=== PATIENT | female | born 1975 | race Caucasian/White ===

== ENCOUNTER → 2017-06-09 11:43 | Outpatient (CLI) | payer BC, SELFPAY ==
[2017-06-09 14:37] LABS: Internal QC Validated? YES +Cl - CLEAR BKGD; Monotest Negative (Negative)
[2017-06-09 14:46] LABS: AST(SGOT) 16 U/L (15-37); Alanine Aminotransfer ALT/SGPT 23 U/L (13-56); Albumin, Serum 3.5 g/dL (3.2-5.0); Alkaline Phosphatase 95 U/L (45-117); Anion Gap 8 (5-15); BUN 9 mg/dL (7-18); BUN/Creat Ratio 14.6 RATIO (10-20); Calcium,Total 8.5 mg/dL (8.5-10.1); Chloride 106 mmol/L (98-107); Creatinine, Serum 0.62 mg/dL (0.55-1.02); EST Glomerular Filtration Rate 114 mL/min (>60); Est Glom Filt Rate - Afr Amer 138 mL/min (>60); Globulin 3.5 g/dL (2.2-4.2); Glucose 79 mg/dL (74-106); Potassium 4.1 mmol/L (3.5-5.1); Rheumatoid Factor < 10.0 IU/mL (<15); Sodium Level 140 mmol/L (136-145)
[2017-06-10 14:11] LABS: EBV Early Antigen IgG 40.5 U/mL (0.0-8.9); EBV-VCA IgG > 600.0 U/mL (0.0-17.9)
[2017-06-12 08:46] LABS: ANTINUCLEAR ANTIBODIES DIRECT Negative (Negative)
== END ==
PROVIDERS: Family Provider Family Medicine; PCP Family Medicine; Visit Provider Family Medicine
DX: M13.0 Polyarthritis, unspecified (principal); R35.0 Frequency of micturition
CPT/HCPCS: 36415; 80053; 86038; 86140; 86308; 86431; 86663; 86665; 87086

== ENCOUNTER → 2017-10-24 12:36 | Outpatient (CLI) | payer BC, SELFPAY ==
[2017-10-24 13:58] LABS: Absolute Lymphocyte Count 0.83 X10^3/ul (0.83-4.51); Absolute Neutrophil Count 5.2 X10^3/uL (2.0-7.7); Basophil# 0.04 X10^3/uL; Basophil% 0.6 % (0-1); Eosinophil# 0.07 X10^3/uL; Eosinophils% 1.1 % (0-5); Hematocrit 37.4 % (37-47); Hemoglobin 12.6 g/dl (12.0-15.0); Lymphocyte # 0.83 X10^3/ul (4.0); Lymphocyte % 12.8 % (19-41); Mean Corp Hgb Conc 33.7 g/gl (32-36); Mean Corpuscular Hgb 28.8 pg (27.0-32.0); Mean Corpuscular Volume 85.6 fL (81-99); Mean Platelet Vol. 9.4 fl (6.2-12.0); Monocyte# 0.36 X10^3/uL; Monocyte% 5.5 % (0-10); Neutrophil # 5.18 X10^3/uL (2.7-7.7); Neutrophil % 79.8 % (47-70); Platelet Count 286 K/mm3 (150-450); RBC Distribution Width CV 13.2 % (11.6-14.6); RBC Distribution Width SD 40.9 fl (35.1-43.9); Red Blood Count 4.37 M/mm3 (4.2-5.4); White Blood Count 6.5 K/mm3 (4.4-11.0)
[2017-10-24 14:00] LABS: POSITIVE COUNT NO; POSITIVE DIFFERENTIAL NO; POSITIVE MORPHOLOGY NO
[2017-10-24 14:15] LABS: Vitamin B12 869 pg/mL (211-911)
[2017-10-24 14:57] LABS: AST(SGOT) 15 U/L (15-37); Alanine Aminotransfer ALT/SGPT 21 U/L (13-56); Albumin, Serum 3.6 g/dL (3.2-5.0); Alkaline Phosphatase 96 U/L (45-117); Anion Gap 6 (5-15); BUN 7 mg/dL (7-18); Calcium,Total 8.5 mg/dL (8.5-10.1); Chloride 105 mmol/L (98-107); Creatinine, Serum 0.64 mg/dL (0.55-1.02); EST Glomerular Filtration Rate 110 mL/min (>60); Est Glom Filt Rate - Afr Amer 133 mL/min (>60); Globulin 3.6 g/dL (2.2-4.2); Glucose 87 mg/dL (74-106); Magnesium 1.9 mg/dL (1.6-2.6); Protein, Total 7.2 g/dL (6.4-8.2); Sodium Level 140 mmol/L (136-145); Thyroid Stim Hormone (TSH) 1.03 uIU/mL (0.358-3.74)
== END ==
PROVIDERS: Family Provider Family Medicine; PCP Family Medicine; Visit Provider Family Medicine
DX: R20.2 Paresthesia of skin (principal)
CPT/HCPCS: 36415; 80053; 82607; 82746; 83735; 84443; 85025

== ENCOUNTER 2017-12-23 19:54 | Emergency (ER) | payer BC, SELFPAY ==
[2017-12-23 19:55] VITALS: BP 125/94; PULSE 113; RESP 18; TEMP 37.1; O2SAT 100; BMI 28.3
--- NOTE | 2017-12-23 22:51 | ED.VISSUMM ---
- ER Visit Summary Date of Service: 12/23/17 Chief Complaint: Left leg pain History of Present Illness: The patient is a [address] Luis Miguel Miller. She reports that on November 08 she was jumping on a pogo stick lost her balance fell and hit her left calf on the part that your feet rest on. She reports that she had a hematoma in this area and that it had been improving over the past 2 weeks. However, she reports that approximately 1 week ago she began having an aching pain in her left calf that is 5 out of 10 severity at worst and 3-10 currently. Is worsened by putting pressure on it. Is relieved by rest. She states that the area itches. Physical Examination: Vitals: Stable. Afebrile. General: Well-nourished and well-developed. Head: Normocephalic atraumatic. Neck: Supple, no lymphadenopathy. No JVD. Nontender. Cardiovascular: Regular rate and rhythm. No murmurs. Respiratory: No respiratory distress. Clear to auscultation bilaterally. Abdominal: Soft, nontender, nondistended, normal bowel sounds. No guarding, rebound, or peritoneal signs. Back: Nontender. Extremities: Approximately 2 cm area of contusion over the posterior left calf. There is no erythema, induration, or fluctuance. It is mildly tender to palpation. Skin: Normal color, no rash. Neurologic: Alert and oriented ?3. Cranial nerves II through XII are intact. Normal strength and sensation. Psych: Normal affect. Test Results: Left lower extremity Doppler was negative. Emergency Department Course and Treatment: Patient refused pain medications. She is resting comfortably. Treatment Plan: Patient was reassured. She is instructed to use warm compresses to the area. Follow-up with Dr. Luis Miguel Miller in 1 week if not improving. Return to the emergency department for any worsening symptoms. Disposition: To home in improved and stable condition. Impression: 1. Left calf hematoma, resolving. This note was generated with [employer] software. It may contain incorrect words, spelling, and punctuation that were not noted in review of the chart prior to signing ED Disposition - Plan for ED Patient: Disposition: Home or Assisted Living Chief Complaint: Lower Extremity Injury Instructions: ED Hematoma Referrals: Luis Miguel Miller MD [Primary Care Provider] - 1 Week if not improving
[2017-12-23 22:59] VITALS: BP 114/83; PULSE 99; RESP 16
== END 2017-12-23 23:00 | disposition home or self-care (01) ==
PROVIDERS: Emergency Provider Emergency Medicine; Family Provider Family Medicine; PCP Family Medicine
DX: S80.12XA Contusion of left lower leg, initial encounter (principal); W17.89XA Other fall from one level to another, initial encounter; Y93.9 Activity, unspecified; Y92.9 Unspecified place or not applicable; F32.9 Major depressive disorder, single episode, unspecified; F41.9 Anxiety disorder, unspecified; Z79.899 Other long term (current) drug therapy
CPT/HCPCS: 93971; 99282

== ENCOUNTER → 2018-04-19 17:05 | Outpatient (CLI) | payer BC, SELFPAY ==
[2018-04-19 08:37] VITALS: BMI 29.0
[2018-04-24 09:45] LABS: HPV APTIMA, High Risk Negative (Negative)
== END ==
PROVIDERS: Family Provider Family Medicine; PCP Family Medicine; Referring Provider Nurse Practitioner Women's Health; Visit Provider Nurse Practitioner Women's Health
DX: Z12.4 Encounter for screening for malignant neoplasm of cervix (principal)
CPT/HCPCS: 87624; 88175; G0145

== ENCOUNTER → 2018-05-09 07:37 | Outpatient (CLI) | payer BC, SELFPAY ==
[2018-04-19 08:37] VITALS: BMI 29.0
--- NOTE | 2018-05-09 07:40 | BI_ITS ---
MAMMOGRAPHY - BILATERAL SCREENING REASON FOR EXAM: Female, 42 years old. Routine annual screening examination. PERTINENT HISTORY: Non-contributory. TECHNIQUE: Digital bilateral breast cesar (3D mammographic acquisition) in the CC and MLO projections. 2-D mediolateral oblique (MLO) and craniocaudad (CC) views of both breasts were obtained. CAD: Full Field Digital Mammography with Computer Added Detection was performed. COMPARISON: None. Baseline examination. FINDINGS: Breast Composition: There are scattered areas of fibroglandular density. There are no dominant masses or suspicious calcifications. Asymmetry of breast tissue where more breast tissue is seen in the right breast as compared to the left side. No other significant abnormalities are identified. BI/SCREENING MAMM (CAD), BILAT IMPRESSION: Negative screening mammogram. Yearly followup mammogram recommended. (A) ASSESSMENT CATEGORY: BIRADS Category 2: Benign. A letter regarding these results will be sent to the patient by the facility within 30 days. Approximately 10% of breast cancers are not detected by mammography. A normal mammogram should not delay biopsy of a clinically suspicious abnormality. [id number] Electronically Signed: Barber Corral MD at 9:16 EST Tel [phone], Service support ,
--- OUTSIDE RECORDS SUMMARY | 2018-07-11 07:49 | XMS RPT_ITS ---
:1975 Author Organization OHIP Support Name Relationship Address Phone [employer] Unavailable [address] + [address] [place] [address] CIHA, CHRISTOPHER Unavailable [address] + [place] [address] [employer] Unavailable [address] + [address] [place] [address] CIHA, CHRISTOPHER Unavailable [address] + [place] [address] [employer] Unavailable [address] + [address] [place] [address] CIHA, CHRISTOPHER Unavailable [address] + [place] [address] [employer] Unavailable [address] + [address] [place] [address] CIHA, CHRISTOPHER Unavailable [address] + [place] [address] [employer] Unavailable [address] + [address] [place] [address] CIHA, CHRISTOPHER Unavailable [address] + [place] [address] [employer] Unavailable [address] + [address] [place] [address] BOMONTSERRAT CASTILLO Unavailable [address] + [place] [address] CIHA, CHRISTOPHER Unavailable [address] + [place] [address] [employer] Unavailable [address] + [address] [place] [address] MONTSERRAT LAU Unavailable [address] + [place] [address] CIHA, CHRISTOPHER Unavailable [address] [facility] + [place] [address] Care Team Providers Name Role Phone MICHELLE MOODY (NORRIS) Referring Unavailable Jeanette, Solange Attending Unavailable Miller, Luis Miguel Referring Unavailable Jeanette, Solange Attending Unavailable Miller, Luis Miguel Primary Care Unavailable [place], Solange Referring Unavailable Miller, Luis Miguel Attending Unavailable Miller, Luis Miguel Primary Care Unavailable Miller, Luis Miguel Attending Unavailable Miller, Luis Miguel Primary Care Unavailable Joalexandreaiff, Marion Attending Unavailable Jolldavy, Marion Referring Unavailable Miller, Luis Miguel Primary Care Unavailable Jeanette, Solange Attending Unavailable Jeanette, Solange Referring Unavailable Miller, Luis Miguel Primary Care Unavailable Miller, Luis Miguel Primary Care Unavailable Neo Brito Attending Unavailable PROBLEMS PROBLEMS DATE TYPE CONDITION / CODE ATTENDING STATUS SOURCE 04/20/2018 Unknown Z12.4 - Encounter JeanetteSolange bruce Active [place] for screening for Community malignant neoplasm Hospital of cervix / Repository Z12.4(ICD-10) 04/19/2018 Unknown Z12.31 - Encounter Solange Reid Active [place] for screening Community mammogram for Hospital malignant neoplasm Repository of breast / Z12.31(ICD-10) 04/19/2018 Unknown Z01.411 - Encounter AnchorageSolange bruce Active [place] for gynecological Community examination Hospital (general) (routine) Repository with abnormal findings / Z01.411(ICD-10) 04/19/2018 Unknown Z63.8 - Other Solange Reid Active [place] specified problems Community related to primary Hospital support group / Repository Z63.8(ICD-10) 10/24/2017 Unknown R20.2 - Paresthesia Marion Gross Active [place] of skin / Community R20.2(ICD-10) Hospital Repository 06/17/2017 Unknown R19.7 - Diarrhea, Miller, Luis Miguel Active [place] unspecified / Community R19.7(ICD-10) Hospital Repository 06/10/2017 Unknown M13.0 - Miller, Luis Miguel Active [place] Polyarthritis, Community unspecified / Hospital M13.0(ICD-10) Repository 06/10/2017 Unknown R35.0 - Frequency Miller, Luis Miguel Active [place] of micturition / Community R35.0(ICD-10) Hospital Repository 06/06/2017 Active Pain, unspecified / NA Active [facility] R52(ICD-10) Main [place] Repository 06/06/2017 Active Other specified NA Active [facility] soft tissue [facility] disorders / Repository M79.89(ICD-10) PROCEDURES PROCEDURES No Procedure Records FoundRESULTS RESULTS SCREENING MAMM (CAD), Observed: 05/09/2018 Status: F Source: [place] BILAT 7:40 AM [facility] REPOSITORY [facility] Imaging Services [address] [place] [address] SCREENING MAMM (CAD), BILAT MR#: [id number] Acct: [id number] Name: SUMAYA PENNY Rep #: [id number] : 1975 F 42 From: Barber Corral MD PCP: Luis Miguel Miller MD Status: REG CLI Study: SCREENING MAMM (CAD), BILAT Date of Exam: 05/09/18 Exam# [id number] Ordering Dr: Solange Reid REGISTERED RESPIRATORY TECHNICIAN-C MAMMOGRAPHY - BILATERAL SCREENING REASON FOR EXAM: Female, 42 years old. Routine annual screening examination. PERTINENT HISTORY: Non-contributory. TECHNIQUE: Digital bilateral breast cesar (3D mammographic acquisition) in the CC and MLO projections. 2-D mediolateral oblique (MLO) and craniocaudad (CC) views of both breasts were obtained. CAD: Full Field Digital Mammography with Computer Added Detection was performed. COMPARISON: None. Baseline examination. FINDINGS: Breast Composition: There are scattered areas of fibroglandular density. There are no dominant masses or suspicious calcifications. Asymmetry of breast tissue where more breast tissue is seen in the right breast as compared to the left side. No other significant abnormalities are identified. BI/SCREENING MAMM (CAD), BILAT IMPRESSION: Negative screening mammogram. Yearly followup mammogram recommended. (A) ASSESSMENT CATEGORY: BIRADS Category 2: Benign. A letter regarding these results will be sent to the patient by the facility within 30 days. Approximately 10% of breast cancers are not detected by mammography. A normal mammogram should not delay biopsy of a clinically suspicious abnormality. [id number] Electronically Signed: Barber Corral MD at 9:16 EST Tel [phone], Service support , CC: MIGUEL Reid; Luis Miguel Miller MD Welfare Specialist: Signed CHILD AND FAMILY SERVICES SPECIALIST OFFICE VISIT Observed: 04/19/2018 Status: F Source: [place] REPORT 9:13 AM [facility] REPOSITORY [facility] Women[facility] [address] [place] [address] OFFICE VISIT Date of Service: 04/19/18 MR#: [id number] Acct: [id number] Name: SUMAYA PENNY Rep #: [id number] : 1975 Provider: MIGUEL Reid Age/Sex: 42/F [place] [facility] [place] Signed Intake Vital Signs04/19/18 Height 5 ft 4 in 04/19/18 Weight: 169 lb 04/19/18 Body Mass Index (BMI) 29.0 04/19/18 Blood Pressure 120/76 Intake Visit Reasons: ANNUAL Ash Handler Required: No Is patient in pain?: No Allergies acetaminophen [From Percocet] Allergy (Verified 04/19/18 08:37) Angioedema latex Allergy (Verified 04/19/18 08:37) Rash oxycodone [From Percocet] Allergy (Verified 04/19/18 08:37) Angioedema Medications Dextroamphetamine/Amphetamine [Adderall 30 mg Tablet] 30 mg PO DAILY 12/23/17 [History Confirmed 04/19/18] Venlafaxine HCl 50 mg PO DAILY 12/23/17 [History Confirmed 04/19/18] Is last menstrual period known: Yes Last Menstral Period: 03/29/18 Post menopausal: No Patient : No : No PFSH Medical History Anxiety (Acute) Depression (Acute) Surgical History H/O section (Acute) History of tonsillectomy and adenoidectomy (Acute) Family History Mother Thyroid disorder Father Thyroid disorder Sister No problems noted. 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 DatName GA/WeeksOutcome Route [facility] LgAnesthesDel LocaProviderFOB e ht en tn Unknown Pina 2004 HPI ANNUAL: Details: SUMAYA PENNY is a 42 year old who presents for annual exam. Some issues with marriage. Not sexually active X 1 year. Both struggle with depression but feels hers is under control at this point. States they are like roommates and don't really fight but also don't really communicate. Last PAP: unsure History of abnormal PAP: colp no treatment 1998 Last mammogram: ordered baseline Spouse with vasectomy Female Reproductive History Last Menstral Period: 03/29/18 Cycle Length: 21-35 Bleeding Duration: 5 Questions: Metorrhagia: No, Sexually active: No, Dyspareunia: No, PCB: No ROS Const Constitutional: Denies fatigue, weight gain or weight loss Cardio Card: Denies chest pain Resp Resp: Denies cough or shortness of breath with activity GI GI: Denies abdominal pain, constipation, change in stools, vomiting or bloating : Reports as per HPI; denies urinary frequency, pelvic pain, urinary urgency, vaginal discharge, vaginal itching, urinary incontinence or difficulty urinating Exam Const General: cooperative, healthy appearing, no acute distress, well developed Orientation: alert, oriented to person, oriented to place [facility] Head: normal to inspection Neck Neck: normal visual inspection Thyroid: thyroid normal Lymphatic: no lymphadenopathy noted Chest Breast inspection: normal inspection of the breasts, normal inspection of the axillae Breast palpation: normal palpation of the breasts, normal palpation of the axillae, no axillary lymphadenopathy Resp Effort AND Inspection: normal respiratory effort GI Palpation: soft, nontender, no masses Rectal Exam: deferred External Female Exam: normal external appearance, normal appearance of the urethra Urethra: normal appearance of the urethra, normal palpation Speculum Exam - Vagina: normal appearance of the vagina, normal vaginal discharge Speculum Exam - Cervix: normal appearance of the cervix Bimanual Exam- Vagina AND Uterus: normal bimanual exam, uterine size normal, uterine shape normal, uterus non-tender Bimanual Exam- Adnexa, other: normal adnexae, no adnexal masses, adnexae non-tender, pelvic support normal Pelvic Support: normal Neuro General: alert, oriented x3 Psych Affect: normal affect Assessment AND Plan Problems 1. Encounter for gynecological examination with abnormal finding Z01.411 2. Pap smear for cervical cancer screening Z12.4 3. Family discord Z63.8 4. Encounter for screening mammogram for malignant neoplasm of breast Z12.31 Plan Completed breast and pelvic exam Reviewed diet and exercise Pap thin prep pap with reflex Mammogram ordered Contraception spouse vas Discussed counseling options, encouraged and handout given States feels effexor is adequate for depression RTO 1 year, prn with problems Solange Reid CUSHION FORMER Orders Orders: Coding Level of Care Code Off vis,est,prev 40-64yrs Diagnoses Encounter for gynecological examination with abnormal finding Z01.411 Gynecological examination findings: abnormal findings PRESENT Pap smear for cervical cancer screening Z12.4 Family discord Z63.8 Encounter for screening mammogram for malignant neoplasm of breast Z12.31 04/19/18 0913 <Electronically signed by Solange LEONARD> Date Solange REILLYC Cosigner Signature: Date (if applicable) CC: PAP IG HPV APTIMA Collected: 04/19/2018 Status: F Source: [place] 16/18,45 9:00 AM [facility] REPOSITORY Order Comment: CYTOLOGY INFORMATION: - CLINICAL INFORMATION: - DATE LMP/MENOPAUSE: N/A - COLLECTION VIAL: Thin Prep Vial - CHOCOLATE MAKER SOURCE: CERVICAL - COLLECTION TECHNIQUE: BRUSH/SPATULA Specimen Comment: [id number] Specimen Comment: Source.............Cervix Specimen Comment: No. of containers..01 ThinPrep Vial TYPE CODE TESTS RESULT OUT OF RANGE REFERENCE UNITS LAB L7400.0800 . Normal DIAGN Comment Result Comment: NEGATIVE FOR INTRAEPITHELIAL LESION AND MALIGNANCY. LAB L7400.0900 . Normal ADEQ Comment Result Comment: Satisfactory for evaluation. Endocervical and/or squamous metaplastic cells (endocervical component) are present. LAB L7400.1400 . Normal PERFORM Comment Result Comment: Shantal Cullen Hog Trader LAB L7400.2575 . Normal TEST METHOD Comment Result Comment: This liquid based ThinPrep(R) pap test was screened with the use of an image guided system. LAB L7400.2600 . Normal . COMM LAB L7400.2700 . Normal PAPSMR Comment Result Comment: The Pap smear is a screening test designed to aid in the detection of premalignant and malignant conditions of the uterine cervix. It is not a diagnostic procedure and should not be used as the sole means of detecting cervical cancer. Both false-positive and false-negative reports do occur. LAB L7400.2760 Negative Normal HPV APTIMA, Negative HR Result Comment: This test detects fourteen high-risk HPV types (16/18/31/33/35/39/45/ 51/52/56/58/59/66/68) without differentiation. Performed at: - [facility] [id number] Cargo And Container Inspector: Marianne Dickerson MD, Phone: [phone] Performed at: =G - [facility] [address] [id number] Cargo And Container Inspector: Marianne Dickerson MD, Phone: [phone] Performed By: #### L7400.0280 #### [facility] (refer to report for specific site) refer to report for address and phone number EMERGENCY DEPARTMENT Observed: 12/24/2017 Status: F Source: [place] SUMMARY 1:00 AM [facility] REPOSITORY [facility] Medical Records Department [address] [place] [address] Emergency Department Summary 12/23/17 2251 MR#: [id number] Acct: [id number] Name: SUMAYA PENNY Rep #: [id number] : 1975 42 From: Neo Brito MD PCP: Luis Miguel Miller MD Status: DEP ER - ER Visit Summary Date of Service: 12/23/17 Chief Complaint: Left leg pain History of Present Illness: The patient is a [address] Luis Miguel Miller. She reports that on November 08 she was jumping on a pogo stick lost her balance fell and hit her left calf on the part that your feet rest on. She reports that she had a hematoma in this area and that it had been improving over the past 2 weeks. However, she reports that approximately 1 week ago she began having an aching pain in her left calf that is 5 out of 10 severity at worst and 3-10 currently. Is worsened by putting pressure on it. Is relieved by rest. She states that the area itches. Physical Examination: Vitals: Stable. Afebrile. General: Well-nourished and well-developed. Head: Normocephalic atraumatic. Neck: Supple, no lymphadenopathy. No JVD. Nontender. Cardiovascular: Regular rate and rhythm. No murmurs. Respiratory: No respiratory distress. Clear to auscultation bilaterally. Abdominal: Soft, nontender, nondistended, normal bowel sounds. No guarding, rebound, or peritoneal signs. Back: Nontender. Extremities: Approximately 2 cm area of contusion over the posterior left calf. There is no erythema, induration, or fluctuance. It is mildly tender to palpation. Skin: Normal color, no rash. Neurologic: Alert and oriented 3. Cranial nerves II through XII are intact. Normal strength and sensation. Psych: Normal affect. Test Results: Left lower extremity Doppler was negative. Emergency Department Course and Treatment: Patient refused pain medications. She is resting comfortably. Treatment Plan: Patient was reassured. She is instructed to use warm compresses to the area. Follow-up with Dr. Luis Miguel Miller in 1 week if not improving. Return to the emergency department for any worsening symptoms. Disposition: To home in improved and stable condition. Impression: 1. Left calf hematoma, resolving. This note was generated with Doujiaoation software. It may contain incorrect words, spelling, and punctuation that were not noted in review of the chart prior to signing ED Disposition - Plan for ED Patient: Disposition: Home or Assisted Living Chief Complaint: Lower Extremity Injury Instructions: ED Hematoma Referrals: Luis Miguel Miller MD [Primary Care Provider] - 1 Week if not improving What to do if you have Problems For any increased pain, shortness of breath, bleeding, nausea or vomiting, chest pain, or any unexpected problems, contact your Primary Care Provider. Call [facility] ([phone]) or report to the closest Emergency Room. Call 911 if necessary. 12/24/17 0100 <Electronically signed by Neo rBito MD> Date Neo Brito MD Cosigner Signature (If Indicated): Date CC: Luis Miguel Miller MD VENOUS DUPLEX Observed: 12/23/2017 Status: F Source: [place] IMAG/LIMITED/UNI 9:49 PM [facility] REPOSITORY [facility] Imaging Services [address] [place] [address] Venous Duplex Imag/Limited/Uni MR#: [id number] Acct: [id number] Name: SUMAYA PENNY Rep #: [id number] : 1975 F 42 From: Adalid Welch MD PCP: Luis Miguel Miller MD Status: REG ER Study: Venous Duplex Imag/Limited/Uni Date of Exam: 12/23/17 Exam# [id number] Ordering Dr: Neo Brito MD STUDY: VENOUS DOPPLER ULTRASOUND - LEFT LOWER EXTREMITY REASON FOR EXAM: Female, 42 years old. Swelling TECHNIQUE: Ultrasound evaluation of the deep vein system to include sevilla-scale imaging and compression was performed. Sevilla-scale imaging and Doppler sonographic evaluation, including duplex spectral analysis and qualitative color flow sonography, was performed. COMPARISON: None. FINDINGS: Common Femoral Vein: Normal compression, spontaneity and augmentation. Normal color Doppler. Common Femoral Vein/Greater Saphenous Junction: Normal compression, spontaneity and augmentation. Normal color Doppler. Deep Femoral Vein: Normal compression, spontaneity and augmentation. Normal color Doppler. Femoral Proximal: Normal compression, spontaneity and augmentation. Normal color Doppler. Femoral Middle: Normal compression, spontaneity and augmentation. Normal color Doppler. Femoral Distal: Normal compression, spontaneity and augmentation. Normal color Doppler. Popliteal Vein: Normal compression, spontaneity and augmentation. Normal color Doppler. Posterior Tibial Vein: Normal compression, spontaneity and augmentation. Normal color Doppler. Peroneal Vein: Normal compression, spontaneity and augmentation. Normal color Doppler. US/Venous Duplex Imag/Limited/Uni IMPRESSION: Normal venous Doppler ultrasound of the lower extremity. Electronically Signed: Adalid Welch MD at 22:30 EDT , Service support , CC: Luis Miguel Miller MD; Neo Brito MD Welfare Specialist: Signed CBC W/DIFF, AUTOMATED Collected: 10/24/2017 Status: F Source: [place] 12:41 PM [facility] REPOSITORY Order Comment: Order Date: 10/24/17 Order Info: 0184-1 - CBCD TYPE CODE TESTS RESULT OUT OF RANGE REFERENCE UNITS LAB L100.1000 4.4-11.0 K/mm3 Normal WBC 6.5 LAB L100.1200 4.2-5.4 M/mm3 Normal RBC 4.37 LAB L100.1300 12.0-15.0 g/dl Normal HGB 12.6 LAB L100.1400 37-47 % Normal HCT 37.4 LAB L100.1500 81-99 fL Normal MCV 85.6 LAB L100.1600 27.0-32.0 pg Normal MCH 28.8 LAB L100.1700 32-36 g/gl Normal MCHC 33.7 LAB L100.1810 11.6-14.6 % Normal RDW CV 13.2 LAB L100.1820 35.1-43.9 fl Normal RDW SD 40.9 LAB L100.1900 150-450 K/mm3 Normal PLT 286 LAB L100.2000 6.2-12.0 fl Normal MPV 9.4 LAB L100.2100 47-70 % High NEUT% 79.8 LAB L100.2200 19-41 % Low LY% 12.8 LAB L100.2300 0-10 % Normal MONO% 5.5 LAB L100.2400 0-5 % Normal EO% 1.1 LAB L100.2500 0-1 % Normal BASO% 0.6 LAB L100.2550 0.0-0.9 % Normal IM GRAN % 0.200 Result Comment: IG% - Immature Granulocytes (promyelocytes, myelocytes and metamyelocytes) > 1% indicates that a LEFT SHIFT is Present. LAB L100.2620 2.0-7.7 X10 3/uL Normal Absolute Neut 5.2 LAB L100.2720 0.83-4.51 X10 3/ul Normal Absolute Lymph 0.83 Performed By: #### L100.0100, L503.0105, L500.4050, L501.5200, L501.9520, L506.0250 #### [facility] [address] [facility]. [place], [place], [address] VITAMIN B12 Collected: 10/24/2017 Status: F Source: [place] 12:41 PM [facility] REPOSITORY Order Comment: Order Date: 10/24/17 Order Info: 2132-9 - B12 TYPE CODE TESTS RESULT OUT OF RANGE REFERENCE UNITS LAB L503.0105 211-911 pg/mL Normal Vitamin B12 869 Performed By: #### L100.0100, L503.0105, L500.4050, L501.5200, L501.9520, L506.0250 #### [facility] [address] [place], [address] COMPREHENSIVE METABOLIC Collected: 10/24/2017 Status: F Source: [place] [facility] 12:41 PM [facility] REPOSITORY Order Comment: Order Date: 10/24/17 Order Info: 0786-1 - CMP Order Info: 53201-2 - MG Order Info: 3016-3 - TSH Order Info: 2284-8 - FOLS Is Patient Taking Vitamins or Folic Acid Supplements? N TYPE CODE TESTS RESULT OUT OF RANGE REFERENCE UNITS LAB L501.0100 74-106 mg/dL Normal GLU 87 Result Comment: Please note revised GLUCOSE reference range effective 2017. LAB L501.1000 7-18 mg/dL Normal BUN 7 LAB L501.1100 0.55-1.02 mg/dL Normal CREAT,SERUM 0.64 Result Comment: The validity of the calculated GFR AND GFRAA in patients over 70 years has not been determined. Clinical correlation is essential. LAB L501.1110 >60 mL/min Normal EST GFR 110 Result Comment: Non- GFR Calc LAB L501.1115 >60 mL/min Normal EST GFR - AA 133 Result Comment: GFR Calc LAB L501.1300 10-20 RATIO Normal BUN/CRE 11.0 LAB L501.1500 6.4-8.2 g/dL T Normal PROT 7.2 LAB L501.1800 3.2-5.0 g/dL Normal ALB 3.6 LAB L501.1950 2.2-4.2 g/dL Normal GLOB 3.6 LAB L501.2000 0.9-2.4 RATIO Normal A/G 1.0 LAB L501.2200 8.5-10.1 mg/dL CA Normal 8.5 LAB L501.4100 15-37 U/L Normal AST 15 LAB L501.4305 45-117 U/L Normal ALK P 96 LAB L501.4405 13-56 U/L Normal ALT 21 LAB L501.4600 0.20-1.00 mg/dL T Normal BILI 0.30 LAB L501.5300 136-145 mmol/L NA Normal 140 LAB L501.5600 3.5-5.1 mmol/L K Normal 4.0 LAB L501.5900 98-107 mmol/L CL Normal 105 LAB L501.6100 21.0-32.0 mmol/L Normal CO2 29.0 LAB L501.6200 5-15 Normal GAP 6 Performed By: #### L100.0100, L503.0105, L500.4050, L501.5200, L501.9520, L506.0250 #### [facility] [address] [place], [address] MAGNESIUM Collected: 10/24/2017 Status: F Source: [place] 12:41 PM [facility] REPOSITORY Order Comment: Order Date: 10/24/17 Order Info: 0786-1 - CMP Order Info: 58571-1 - MG Order Info: 3016-3 - TSH Order Info: 2284-8 - FOLS Is Patient Taking Vitamins or Folic Acid Supplements? N TYPE CODE TESTS RESULT OUT OF RANGE REFERENCE UNITS LAB L501.5200 1.6-2.6 mg/dL Normal MG 1.9 Performed By: #### L100.0100, L503.0105, L500.4050, L501.5200, L501.9520, L506.0250 #### [facility] [address] [place], [address] THYROID STIM HORMONE Collected: 10/24/2017 Status: F Source: [place] (TSH) 12:41 PM [facility] REPOSITORY Order Comment: Order Date: 10/24/17 Order Info: 0786-1 - CMP Order Info: 75070-5 - MG Order Info: 3016-3 - TSH Order Info: 2284-8 - FOLS Is Patient Taking Vitamins or Folic Acid Supplements? N TYPE CODE TESTS RESULT OUT OF RANGE REFERENCE UNITS LAB L501.9520 0.358-3.74 uIU/mL Normal TSH 1.03 Performed By: #### L100.0100, L503.0105, L500.4050, L501.5200, L501.9520, L506.0250 #### [facility] [address] [place], [address] FOLATES, (FOLIC ACID) Collected: 10/24/2017 Status: F Source: [place] 12:41 PM [facility] REPOSITORY Order Comment: Order Date: 10/24/17 Order Info: 0786-1 - CMP Order Info: 37091-5 - MG Order Info: 3016-3 - TSH Order Info: 2284-8 - FOLS Is Patient Taking Vitamins or Folic Acid Supplements? N TYPE CODE TESTS RESULT OUT OF RANGE REFERENCE UNITS LAB L506.0250 3.1-55.4 ng/mL Normal FOLATES 38.40 Performed By: #### L100.0100, L503.0105, L500.4050, L501.5200, L501.9520, L506.0250 #### [facility] [address] [place], [address] MONOTEST Collected: 06/09/2017 Status: F Source: [place] 11:46 AM [facility] REPOSITORY Order Comment: ADD COMPREHENSIVE PANEL TO REFLEX IF POSITIVE LAURA RUN EBV PROFILE IGG/IGM AND EBV VCA/EA IF MONO IS NEGITIVE TYPE CODE TESTS RESULT OUT OF RANGE REFERENCE UNITS LAB L700.5700 Negative Normal MONO Negative Performed By: #### L700.5500 #### [facility] [address] [facility] [place], [address] COMPREHENSIVE METABOLIC Collected: 06/09/2017 Status: F Source: [facility] 11:46 AM [facility] REPOSITORY Order Comment: ADD COMPREHENSIVE PANEL TO REFLEX IF POSITIVE LAURA RUN EBV PROFILE IGG/IGM AND EBV VCA/EA IF MONO IS NEGITIVE TYPE CODE TESTS RESULT OUT OF RANGE REFERENCE UNITS LAB L501.0100 74-106 mg/dL Normal GLU 79 Result Comment: Please note revised GLUCOSE reference range effective 2017. LAB L501.1000 7-18 mg/dL Normal BUN 9 LAB L501.1100 0.55-1.02 mg/dL Normal CREAT,SERUM 0.62 Result Comment: The validity of the calculated GFR AND GFRAA in patients over 70 years has not been determined. Clinical correlation is essential. LAB L501.1110 >60 mL/min Normal EST GFR 114 Result Comment: Non- GFR Calc LAB L501.1115 >60 mL/min Normal EST GFR - AA 138 Result Comment: GFR Calc LAB L501.1300 10-20 RATIO Normal BUN/CRE 14.6 LAB L501.1500 6.4-8.2 g/dL T Normal PROT 7.0 LAB L501.1800 3.2-5.0 g/dL Normal ALB 3.5 LAB L501.1950 2.2-4.2 g/dL Normal GLOB 3.5 LAB L501.2000 0.9-2.4 RATIO Normal A/G 1.0 LAB L501.2200 8.5-10.1 mg/dL CA Normal 8.5 LAB L501.4100 15-37 U/L Normal AST 16 LAB L501.4305 45-117 U/L Normal ALK P 95 LAB L501.4405 13-56 U/L Normal ALT 23 Result Comment: Please note revised ALT reference range effective 2017. LAB L501.4600 0.20-1.00 mg/dL Normal T BILI 0.30 LAB L501.5300 136-145 mmol/L Normal NA 140 LAB L501.5600 3.5-5.1 mmol/L Normal K 4.1 LAB L501.5900 98-107 mmol/L Normal CL 106 LAB L501.6100 21.0-32.0 mmol/L Normal CO2 26.0 LAB L501.6200 5-15 Normal GAP 8 Performed By: #### L500.4050, L501.6710, L505.7010 #### [facility] [address] [place], [place], [address] CRP Collected: 06/09/2017 Status: F Source: [place] 11:46 AM [facility] REPOSITORY Order Comment: ADD COMPREHENSIVE PANEL TO REFLEX IF POSITIVE LAURA RUN EBV PROFILE IGG/IGM AND EBV VCA/EA IF MONO IS NEGITIVE TYPE CODE TESTS RESULT OUT OF RANGE REFERENCE UNITS LAB L501.6710 0.0-3.0 mg/L High 13.00 C-REACTIVE PROT Result Comment: C-Reactive Protein (CRP) provides useful information for the diagnosis, therapy and monitoring of inflammatory processes and associated diseases. For the evaluation of Relative Risk for Cardiovascular Disease, a High Sensitivity CRP (HSCRP) should be ordered. Performed By: #### L500.4050, L501.6710, L505.7010 #### [facility] [address] [place], [address] RHEUMATOID FACTOR Collected: 06/09/2017 Status: F Source: [place] 11:46 AM [facility] REPOSITORY Order Comment: ADD COMPREHENSIVE PANEL TO REFLEX IF POSITIVE LAURA RUN EBV PROFILE IGG/IGM AND EBV VCA/EA IF MONO IS NEGITIVE TYPE CODE TESTS RESULT OUT OF RANGE REFERENCE UNITS LAB L505.7010 <15 IU/mL Normal RHEUMATOID FAC < 10.0 Performed By: #### L500.4050, L501.6710, L505.7010 #### [facility] [address] [place], [place], [address] Observed: 06/09/2017 Status: F Source: KALEY CULTURE, URINE 11:46 AM [facility] REPOSITORY Urine Culture Culture exhibits no growth. Performed By: #### M100.0650 #### [facility] [address] [place], [address] EBV VCA / EA IGG Collected: 06/09/2017 Status: F Source: KALEY 11:46 AM [facility] REPOSITORY TYPE CODE TESTS RESULT OUT OF RANGE REFERENCE UNITS LAB L3100.6000 0.0-8.9 U/mL High EB-EA IgG 40.5 29747 Result Comment: Hepatitis A, Hepatitis C and HIV antibodies may cross-react with this assay. Negative < 9.0 Equivocal 9.0 - 10.9 Positive >10.9 LAB L3100.6100 0.0-17.9 U/mL High EB-VCA > [id number] 600.0 Result Comment: Negative <18.0 Equivocal 18.0 - 21.9 Positive >21.9 Performed at: [facility] [address] [id number] [employer] Inspector: Jovanni Jiang PhD, Phone: [phone] Performed By: #### L3100.5875 #### [facility] (refer to report for specific site) refer to report for address and phone number ANTINUCLEAR ANTIBODIES Collected: 06/09/2017 Status: F Source: [place]ALE[place] DIRECT 11:46 AM [facility] REPOSITORY Order Comment: ADD COMPREHENSIVE PANEL TO REFLEX IF POSITIVE LAURA RUN EBV PROFILE IGG/IGM AND EBV VCA/EA IF MONO IS NEGITIVE TYPE CODE TESTS RESULT OUT OF RANGE REFERENCE UNITS LAB L3100.5475 Negative Normal Negative LAURA-DIRECT Result Comment: Performed at: [facility] [id number] [employer] And [employer] Inspector: Jovanni Jiang PhD, Phone: [phone] Performed By: #### L3100.5475 #### [facility] (refer to report for specific site) refer to report for address and phone number CBC AND DIFFERENTIAL Collected: 06/06/2017 Status: F Source: [place] 12:33 PM [facility] REPOSITORY TYPE CODE TESTS RESULT OUT OF REFERENCE UNITS RANGE LAB WBC 3.70-11.00 k/uL WBC 6.72 LAB RBC 3.90-5.20 m/uL RBC 3.94 LAB HGB 11.5-15.5 g/dL Low Hemoglobin 11.3 LAB HCT 36.0-46.0 % Low Hematocrit 34.3 LAB MCV 80.0-100.0 fL MCV 87.1 LAB MCH 26.0-34.0 pG MCH 28.7 LAB MCHC 30.5-36.0 g/dL MCHC 32.9 LAB RDWCV 11.5-15.0 % RDW-CV 12.1 LAB PLTCT 150-400 k/uL Platelet Count 302 LAB MPV 9.0-12.7 fL MPV 9.7 LAB ANEUT % Neut% 71.1 LAB AANEUT 1.45-7.50 k/uL Abs Neut 4.78 LAB ALYMP % Lymph% 16.1 LAB AALYMP 1.00-4.00 k/uL Abs Lymph 1.08 LAB AMONO % Wright% 6.0 LAB AAMONO <0.87 k/uL Abs Wright 0.40 LAB AEOS % Eosin% 5.5 LAB AAEOS <0.46 k/uL Abs Eosin 0.37 LAB ABASO % Baso% 1.3 LAB AABASO <0.11 k/uL Abs Baso 0.09 LAB AUNRBC 0 /100 WBC NRBCs 0.0 LAB ABNRBC <0.01 k/uL Absolute nRBC <0.01 LAB DTYP DTYPE Auto Diff Performed By: #### CBCDIF, CMP #### [facility] [address] [place] [address] COMP METABOLIC PANEL Collected: 06/06/2017 Status: F Source: [place] 12:33 PM [facility] REPOSITORY TYPE CODE TESTS RESULT OUT OF REFERENCE UNITS RANGE LAB TP 6.3-8.0 g/dL Protein, Total 7.2 LAB ALB 3.9-4.9 g/dL Albumin 4.1 LAB CA 8.5-10.2 mg/dL Calcium, Total 9.8 LAB TBIL 0.2-1.3 mg/dL Bilirubin, Total 0.2 LAB ALKP 32-117 U/L Alkaline Phosphatase 89 LAB AST 13-35 U/L AST 22 LAB GLU 74-99 mg/dL Glucose 85 Result Comment: The [place] [employer] (ADA) provides guidance for cutoff values for fasting glucose and random glucose. The ADA defines fasting as no caloric intake for at least 8 hours. Fas ting plasma glucose results between 100 to 125 mg/dL indicate increased risk for diabetes (prediabetes). Fasting plasma glucose results greater than or equal to 126 mg/dL meet the criteria for diagnosis of diabetes. In the absence of unequivocal hyperglycemia, results should be confirmed by repeat testing. In a patient with classic symptoms of hyperglycemia or hyperglycemic crisis, random plasma glucose results greater than or equal to 200 mg/dL meet the criteria for diagnosis of diabetes. Reference: Standards of Medical Care in Diabetes 2016, [place] [employer]. Diabetes Care. 2016.39(Suppl 1). LAB BUN 7-21 mg/dL BUN 11 LAB CRET 0.58-0.96 mg/dL Creatinine 0.64 LAB NA 136-144 mmol/L Sodium 138 LAB K 3.7-5.1 mmol/L Potassium 3.9 LAB CL 97-105 mmol/L Chloride 100 LAB CO2 22-30 mmol/L CO2 22 LAB AGAP 9-18 mmol/L Anion Gap 16 LAB ALT 7-38 U/L ALT 18 LAB GFRAA eGFR- Amer. >60 LAB GFRNAA . eGFR-All Other Races >60 Result Comment: eGFR (Estimated GFR) Units of measure: mL/min/1.73 meters squared eGFR is derived from the reexpressed MDRD Study equation using the following parameters: serum creatinine, age, gender and race. The creatinine assay has been calibrated to be traceable to IDMS. An eGFR <60 mL/min/1.73m2 for >3 months is consistent with chronic kidney disease. Refer to KDOQI guidelines for clinical interpretation. In patients with unstable renal function, e.g. those with acute kidney injury, the eGFR may not accurately reflect actual GFR. Performed By: #### CBCDIF, CMP #### [facility] [address] [place], [place] [address] PROGRESS Observed: 06/05/2017 Status: COMPLETED Source: [place] 12:39 PM [facility] REPOSITORY HNO ID: [id number] Author: Michelle Moody Service: (none) Author Type: Nurse Practitioner Type: Progress Notes Filed: 06/05/2017 2:29 PM Note Text: Subjective HPI HPI Sumaya Penny is a 41 year old female who presents today for CC of sore throat, body aches, headaches. This started 7 days ago. Has tried ibuprofen with mild relief. Symptoms are worsened by notihng. Risk factors sick exposures at work. Highest temp 101.1 Review of Systems Constitutional: Negative for chills, fever and weight loss. HENT: Positive for congestion and sore throat. Negative for ear pain and nosebleeds. Eyes: Dry burning eyes. Respiratory: Negative for cough, shortness of breath and wheezing. Musculoskeletal: Negative for neck pain. Skin: Positive for itching and rash. PAST MEDICAL HISTORY Diagnosis Date - Abnormal pap Abn. Pap smear (cervix) - Dysthymic disorder Depression (non-psychotic) - Generalized anxiety disorder anxiety/depression PAST SURGICAL HISTORY Procedure Laterality Date - DELIVERY ONLY , low cervical - COLPOSCOPY (VAGINOSCOPY) 2000 mild dysplasia - IUD INSERTION (CHOCOLATE [employer] DEPT)_*FL 05/23/2006 MIRENA/removed - REMOVE TONSILS/ADENOIDS,12+ Y/O ALLERGIES Latex; Percocet [Oxycodone-Acetaminophen] MEDICATIONS venlafaxine (EFFEXOR) 25 mg tablet Take 25 mg by mouth three times daily. dextroamphetamine-amphetamine (ADDERALL XR) 30 mg 24 hr capsule lisdexamfetamine (VYVANSE) 40 mg capsule Take 40 mg by mouth once daily. hydrOXYzine pamoate (VISTARIL) 25 mg capsule Take 25 mg by mouth three times daily as needed. Levonorgestrel-Ethinyl Estrad (AVIANE) 0.1mg - 20mcg per tablet Take 1 tablet by mouth once daily. venlafaxine 75 mg tablet Take 225 mg by mouth once daily. ALBUTEROL 90 MCG/ACTUATION AEROSOL INHALER Inhale one(1) - two(2) puffs four(4) times a day as needed for wheezing and shortness of breath. multivitamins(DAILY MULTIVITAMIN TAB) Take one(1) tablet daily. FAMILY HISTORY Problem Relation Age of Onset - Stroke Paternal Grandfather - fibromyalgia [Other] [OTHER] Mother - None Father - Arthritis Mother Social History Substance Use Topics - Smoking status: Former Smoker Packs/day: 0.50 Years: 3.00 Types: Cigarettes - Smokeless tobacco: Never Used Comment: quit in 2001 - Alcohol use Yes Comment: occa Blood pressure 92/74, pulse 91, temperature 36.9 ?C (98.4 ?F), temperature source Tympanic, resp. rate 18, weight 73.9 kg (163 lb), last menstrual period 05/23/2017, SpO2 100 %. Objective Physical Exam Constitutional: She is oriented to person, place, and time and well-developed, well-nourished, and in no distress. Non-toxic appearance. She does not have a sickly appearance. No distress. HENT: Head: Normocephalic and atraumatic. Right Ear: Hearing, tympanic membrane, external ear and ear canal normal. Left Ear: Hearing, tympanic membrane, external ear and ear canal normal. Nose: Nose normal. Mouth/Throat: Uvula is midline and mucous membranes are normal. Posterior oropharyngeal erythema present. No oropharyngeal exudate, posterior oropharyngeal edema or tonsillar abscesses. Eyes: Conjunctivae and lids are normal. Pupils are equal, round, and reactive to light. Right eye exhibits no discharge. Left eye exhibits no discharge. No scleral icterus. Neck: Trachea normal and normal range of motion. Neck supple. Cardiovascular: Normal rate, regular rhythm and normal heart sounds. Pulmonary/Chest: Effort normal and breath sounds normal. Musculoskeletal: Bilateral palmar erythema/blanchable. No edema/rash/lesions noticed. Mild erythema noticed on bilateral forearms. Lymphadenopathy: She has no cervical adenopathy. Neurological: She is alert and oriented to person, place, and time. Skin: No rash noted. She is not diaphoretic. ASSESSMENT/PLAN: 1. Body aches - ICD9: 780.96, ICD10: R52 (primary diagnosis) Ibuprofen/tylenol for aches Push fluids Follow up with pcp in 5-7 days - CBC + DIFF - COMP METABOLIC PANEL 2. Bilateral hand swelling - ICD9: 729.81, ICD10: M79.89 Will check labwork and follow up with pcp in 4-5 days - CBC + DIFF - COMP METABOLIC PANEL Prescription instructions reviewed with patient as applicable. Patient advised if symptoms do not improve or if symptoms worsen sooner, to contact the office for further evaluation by their primary care physician. Potential red flag symptoms discussed with the patient. Reviewed appropriate action plan to take if red flag symptoms occur. Patient agreeable to treatment plan. Michelle Moody CNP ALLERGIES ALLERGIES DATE TYPE / CODE NAME / CODE REACTION SEVERITY SOURCE 04/19/2018 Drug oxycodone/F0 Angioedema Unknown [facility] Allergy/4160 [id number](RXN Hospital 02963(SNOMED ORM) Repository CT) 04/19/2018 Drug acetaminophe Angioedema Unknown [facility] Allergy/4160 n/[id number] Hospital 36538(SNOMED (RXNORM) Repository CT) 04/19/2018 Drug latex/C52599 Rash Unknown [facility] Allergy/4160 8921(RXNORM) Hospital [address]05(SNOMED Repository CT) 11/11/2005 DRUG/[id number] OXYCODONE-AC ITCHING [facility] 03(SNOMED ETAMINOPHEN [facility] [place] [facility]) Repository 10/18/2005 DRUG LATEX ITCHING Med [facility] INGREDI/4195 [facility] [address](SNOMED Repository CT) ENCOUNTERS ENCOUNTERS ADMIT/DISCHARGE ACCOUNT ADMITTING ENCOUNTER LOCATION SOURCE NUMBER CLASS 05/09/2018 [id number] Ambulatory [facility] ing:OPBI Repository 04/19/2018 [id number] Ambulatory [facility] ing:LABSPEC Repository 04/19/2018/04/19/19 [id number] Ambulatory BMS[facility]:[address] [place] [address] [facility] Repository 12/23/2017/12/24/19 [id number] Emergency [address] ing:ED Repository 10/24/2017 [id number] Ambulatory [facility] ing:MTLAB Repository 06/17/2017 [id number] Ambulatory [facility] ing:LAB.FUTUR Repository E 06/09/2017 [id number] Ambulatory [facility] ing:MFPLAB Repository 06/06/2017 [id number] Ambulatory [facility] Repository 06/05/2017/06/07/[id number] Repository PAYERS PAYERS ENCOUNTER GUARANTOR PAYER SUBSCRIBER SOURCE 05/09/2018 SUMAYA [place] Primary SUMAYA Roche [id number] [place] Insurance:ANTHEMPolic [place] Number: [id number] Hospital [address]Cka: [phone]) [id number] Repository [phone] () Date:8430-50-05AF [address] [place] [address]VS: 05/09/2018 Secondary NOT GIVENUNK [place] Insurance:SELF PAY [facility] Number: Effective Repository Date:2018-04-19 04/19/2018 SUMAYA [place] Primary SUMAYA [place] [id number] [place] Insurance:ANTHEMPolic [place]HADOB: [place] Number: [id number] Hospital 7[address]Uax: [phone]) [id number] Repository [phone] () Date:8023-54-23IE [address] [place] [address] 24395VF: 04/19/2018 Secondary NOT GIVENUNK [place] Insurance:SELF PAY [facility] Number: Effective Repository Date:2018-04-19 04/19/2018 SUMAYA [place] Primary SUMAYA [place] [id number] [place] Insurance:ANTHEMPolic [place]OB: [place] Number: [id number] Hospital [address]16[address]Dkk: (330) [id number] Repository [phone] () Date:2590-84-07HH [id number] [place] [address]UI: 04/19/2018 Secondary NOT GIVENUNK [place] Insurance:SELF PAY [facility] Number: Effective Repository Date:2018-04-19 12/23/2017 SUMAYA [place] Primary SUMAYA Roche [id number] [place] Insurance:ANTHEMPolic [place] Number: [id number] Hospital [address]Jgi: (330) [id number] Repository [phone] () Date:5070-88-79ML [id number] [place] [address] 12783OB: 12/23/2017 Secondary NOT GIVENUNK [place] Insurance:SELF PAY [facility] Effective Repository Date:2017-12-23 10/24/2017 SUMAYA M Primary SUMAYA M [place] [id number] [place] Insurance:ANTHEMPolic CIHADOB: [facility] Number: [id number] Hospital [address]Jqy: (330) [id number] Repository [phone] () Date:6224-88-10ZA [address] [place] [address] 97[address]JZ: 10/24/2017 Secondary NOT GIVENUNK [place] Insurance:SELF PAY [facility] Number: Effective Repository Date:2017-10-24 06/17/2017 Sumaya [id number] Primary Sumaya CihaDOB: [place] Insurance:ANTHEMPolic [id number] [facility] Number: Hospital [address]Ngc: (330) [id number] Repository [phone] () Date:7576-34-40IU [address], [place] [address]EE: 06/17/2017 Secondary NOT GIVENUNK [place] Insurance:SELF PAY [facility] Number: Effective Repository Date:2017-06-17 06/09/2017 Sumaya [id number] Primary Sumaya CihaDOB: [place] Insurance:ANTHEMPolic [id number] [facility] Number: Hospital [address]Ajg: (330) [id number] Repository [phone] () Date:6758-40-84RN [id number] [place] [address]LX: 06/09/2017 Secondary NOT GIVENUNK [place] Insurance:SELF PAY [facility] Number: Effective Repository Date:2017-06-09
== END ==
PROVIDERS: Family Provider Family Medicine; PCP Family Medicine; Referring Provider Nurse Practitioner Women's Health; Visit Provider Nurse Practitioner Women's Health
DX: Z12.31 Encounter for screening mammogram for malignant neoplasm of breast (principal)
CPT/HCPCS: 77063; 77067

== ENCOUNTER → 2018-06-22 13:07 | Outpatient (CLI) | payer BC, SELFPAY ==
[2018-04-19 08:37] VITALS: BMI 29.0
[2018-06-22 13:36] LABS: Color, Urine Yellow (Yellow); Glucose, Dipstick Normal (Normal); Ketone-Dipstick 5 mg/dl (Negative); Leukocyte Esterase-Dipstick 25 /ul (Negative); Nitrite-Dipstick Negative (Negative); Occult Blood-Urine 50 /ul (Negative); Protein-Dipstick Negative (Negative); Specific Gravity, Urine 1.025 (1.002-1.030); Urine Bilirubin Dipstick Negative (Negative); Urine Clarity Clear (Clear); Urine Urobilinogen Normal (Normal)
[2018-06-22 13:44] LABS: Bacteria 1+ /hpf (None Seen); Mucous, Urine 1+ /hpf (<or=2+); Red Blood Cells-Urine 0-5 SEEN /hpf (0-5); Squamous Epithelial Cells - UA 0-5 SEEN /hpf (5-10); White Blood Cells 0-5 SEEN /hpf (0-5)
== END ==
PROVIDERS: Family Provider Family Medicine; PCP Family Medicine; Referring Provider Family Medicine; Visit Provider Family Medicine
DX: R31.9 Hematuria, unspecified (principal)
CPT/HCPCS: 81001; 87086; 87088

== ENCOUNTER → 2018-06-23 16:15 | Outpatient (CLI) | payer BC, SELFPAY ==
[2018-04-19 08:37] VITALS: BMI 29.0
--- NOTE | 2018-06-23 16:18 | US_ITS ---
STUDY: RENAL ULTRASOUND - COMPLETE REASON FOR EXAM: Female, 42 years old. Hematuria TECHNIQUE: Ultrasound evaluation of the kidneys was performed with real-time and static narayan-scale imaging. COMPARISON: None. FINDINGS: RIGHT KIDNEY: Normal location of the right kidney, which is normal in size. The right kidney measures 10.2 x 4.6 x 4.5 cm. There is a normal cortex of the right kidney. The renal cortex measures 1.3 cm. There is no right renal mass or cyst. There are no right renal calculi. There is no right hydronephrosis. DISTAL RIGHT URETER: There is non-visualization of the distal right ureter. There is a visualized right ureteral jet. LEFT KIDNEY: Normal location of the left kidney, which is normal in size. The left kidney measures 10.2 x 4.9 x 4.8 cm. There is a normal cortex of the left kidney. The renal cortex measures 1.2 cm. There are 2 cysts up to 1.2 cm. There are no left renal calculi. There is no left hydronephrosis. DISTAL LEFT URETER: There is non-visualization of the distal left ureter. There is a visualized left ureteral jet. BLADDER: The distended urinary bladder has a volume of 275 ml. The post void urinary bladder has a volume of 10 ml. There is a normal wall thickness of the distended urinary bladder. There is no demonstrated mass within the urinary bladder. There are no demonstrated bladder calculi. US/Kidney and Bladder IMPRESSION: Left renal cysts. Mild posterior residual of the urinary bladder. Electronically Signed: Jeff Arizmendi DO at 18:58 EST Tel [phone], Service support ,
== END ==
PROVIDERS: Family Provider Family Medicine; PCP Family Medicine; Referring Provider Family Medicine; Visit Provider Family Medicine
DX: R31.9 Hematuria, unspecified (principal)
CPT/HCPCS: 76770

== ENCOUNTER → 2019-11-23 17:15 | Outpatient (CLI) | payer BC, SELFPAY ==
[2018-04-19 08:37] VITALS: BMI 29.0
== END ==
PROVIDERS: PCP Family Medicine; Referring Provider Family Medicine; Visit Provider Family Medicine
DX: Z20.828 Contact with and (suspected) exposure to other viral communicable diseases (principal)
CPT/HCPCS: 87635; U0003

== ENCOUNTER → 2019-11-27 09:45 | Outpatient (CLI) | payer BC, SELFPAY ==
[2018-04-19 08:37] VITALS: BMI 29.0
[2019-11-27 12:19] LABS: Absolute Lymphocyte Count 1.24 X10^3/uL (0.83-4.51); Absolute Neutrophil Count 5.5 X10^3/uL (2.0-7.7); Basophil# 0.05 X10^3/uL; Basophil% 0.7 % (0-1); Eosinophil# 0.13 X10^3/uL; Eosinophils% 1.8 % (0-5); Hematocrit 38.3 % (37-47); Hemoglobin 12.1 g/dL (12.0-15.0); Lymphocyte # 1.24 X10^3/ul (4.0); Lymphocyte % 16.8 % (19-41); Mean Corp Hgb Conc 31.6 g/dL (32-36); Mean Corpuscular Hgb 27.9 pg (27.0-32.0); Mean Corpuscular Volume 88.5 fL (81-99); Mean Platelet Vol. 9.7 fl (6.2-12.0); Monocyte# 0.41 X10^3/uL; Monocyte% 5.6 % (0-10); NRBC Flagged by Analyzer 0 % (0-5); Neutrophil # 5.51 X10^3/uL (2.7-7.7); Neutrophil % 74.8 % (47-70); Platelet Count 328 K/mm3 (150-450); RBC Distribution Width CV 13.2 % (11.6-14.6); RBC Distribution Width SD 43.2 fl (35.1-43.9); Red Blood Count 4.33 M/mm3 (4.2-5.4); White Blood Count 7.4 K/mm3 (4.4-11.0)
[2019-11-27 12:35] LABS: Vitamin D,25 Hydroxy 28.8 ng/mL
[2019-11-27 12:38] LABS: ALB/GLOB Ratio 0.9 RATIO (0.9-2.4); AST(SGOT) 14 U/L (15-37); Alanine Aminotransfer ALT/SGPT 23 U/L (13-56); Albumin, Serum 3.7 g/dL (3.2-5.0); Alkaline Phosphatase 124 U/L (45-117); Anion Gap 8 (5-15); BUN 10 mg/dL (7-18); BUN/Creat Ratio 14.4 RATIO (10-20); Calcium,Total 8.8 mg/dL (8.5-10.1); Chloride 106 mmol/L (98-107); Cholesterol 202 mg/dL (200); EST Glomerular Filtration Rate 98 mL/min (>60); Est Glom Filt Rate - Afr Amer 119 mL/min (>60); Ferritin 7 ng/mL (8-252); Globulin 3.9 g/dL (2.2-4.2); Glucose 81 mg/dL (74-106); High Density Lipoprotein 44 mg/dL; Lipase 93 U/L (73-393); Potassium 3.9 mmol/L (3.5-5.1); Protein, Total 7.6 g/dL (6.4-8.2); Sodium Level 140 mmol/L (136-145); Triglycerides 154 mg/dL; Very Low Density Lipoprotein 31 mg/dL (5-40)
[2019-11-27 12:49] LABS: Hemoglobin A1c 4.9 % (3.8-5.6)
== END ==
PROVIDERS: PCP Family Medicine; Visit Provider Family Medicine
DX: E55.9 Vitamin D deficiency, unspecified (principal); K76.0 Fatty (change of) liver, not elsewhere classified; E61.1 Iron deficiency
CPT/HCPCS: 36415; 80053; 80061; 82306; 82728; 83036; 83690; 85025

== ENCOUNTER → 2020-01-01 12:53 | Outpatient (CLI) | payer BC, SELFPAY ==
[2019-12-26 05:48] VITALS: BMI 28.8
--- NOTE | 2020-01-01 15:39 | PFTCOMP_ITS ---
COMPLETE PULMONARY FUNCTION TEST INTERPRETATION Brief HPI: Patient is a 44 year old female, currently under the care of myself, who presents to [facility] for complete pulmonary function tests secondary to diagnosis of abnormal spirometry. Respiratory therapist reports good effort and reproducible results. Interpretation: Forced expiration spirometry shows no large airways obstructive ventilatory defect with an FEV1 of 96% predicted. There is no significant bronchodilator response by strict ATS criteria. Spirograms are of good quality and plateau normally. The respiratory flow volume loop shows a normal pattern. Lung volumes by body plethysmography show a normal total lung capacity at 4.5 L, 89% predicted. All other lung volumes are within normal limits. Diffusion capacity by carbon monoxide is normal at 81% predicted. The airway resistance is normal. No previous pulmonary function tests were available for review. Impression: These pulmonary function tests are within normal limits. There is no indication of a variable airway obstruction.
== END ==
PROVIDERS: PCP Family Medicine; Referring Provider Internal Medicine Critical Care Medicine; Visit Provider Internal Medicine Critical Care Medicine
DX: R94.2 Abnormal results of pulmonary function studies (principal); R06.02 Shortness of breath
CPT/HCPCS: 94060; 94726; 94729

== ENCOUNTER → 2020-01-04 06:51 | Outpatient (CLI) | payer BC, SELFPAY ==
[2019-12-26 05:48] VITALS: BMI 28.8
--- NOTE | 2020-01-04 06:52 | CT_ITS ---
STUDY: CT CHEST WITHOUT CONTRAST REASON FOR EXAM: Female, 44 years old. CONCERN FOR INTRATHORACIC OBSTRUCTION.ABNORMAL PFT/SOB. FLATTENING OF EXPIRATORY LIMB RADIATION DOSAGE (If Supplied By Facility): CTDIvol = ( 9.10 ) mGy, DLP = ( 338.79 ) mGycm TECHNIQUE: Transaxial imaging was performed without the administration of intravenous contrast material. Multiplanar coronal and sagittal images were reformatted. Individualized dose optimization techniques were used for this CT. COMPARISON: None. FINDINGS: 66.6 mm hypodense nodule in the posterior aspect of the left lobe of the thyroid. Small benign-appearing bilateral axillary lymph nodes. The lungs are normal. There is no demonstrated pleural abnormality. Normal heart and pericardium. There are multiple small lymph nodes within the mediastinum, which are normal in size and morphology most compatible with reactive lymph hyperplasia. Normal hilar regions. Normal unenhanced pulmonary arteries. Normal aorta arch and descending thoracic aorta. Normal osseous structures. There is no demonstrated abnormality of the visualized upper abdomen. CT/Chest without Contrast IMPRESSION: Normal unenhanced CT Chest examination. Electronically Signed: Barber Corral, at 8:08 EDT , Service support ,
== END ==
PROVIDERS: PCP Family Medicine; Referring Provider Internal Medicine Critical Care Medicine; Visit Provider Internal Medicine Critical Care Medicine
DX: R94.2 Abnormal results of pulmonary function studies (principal); R06.02 Shortness of breath
CPT/HCPCS: 71250

== ENCOUNTER 2020-01-31 16:41 | Emergency (ER) | payer BC, SELFPAY ==
[2019-12-26 05:48] VITALS: BMI 28.8
[2020-01-31 16:42] VITALS: BP 133/95; PULSE 104; RESP 17; TEMP 36.6; O2SAT 100; BMI 28.4
--- NOTE | 2020-01-31 16:59 | CT_ITS ---
STUDY: CT BRAIN WITHOUT CONTRAST REASON FOR EXAM: Female, 44 years old. DIZZINESS/CONFUSED,SHARP PAIN IN HEAD NUMBNESS WAIST DOWN RADIATION DOSAGE (If Supplied By Facility): CTDIvol = ( 44.99 ) mGy, DLP = ( 796.11 ) mGycm TECHNIQUE: Transaxial CT imaging of the brain was performed without administration of intravenous contrast material. Individualized dose optimization techniques were used for this CT. COMPARISON: No relevant priors. FINDINGS: Normal soft tissue structures. Normal calvarium. Mild cortical atrophy for stated age.. Normal white matter tracts of the cerebral hemispheres. Normal basal ganglia and thalami. Normal brainstem. Normal cerebellum. Empty sella deformity of uncertain clinical significance. There is no intracranial hemorrhage. There are no findings of an acute ischemic infarction. Normal visualized paranasal sinuses. CT/Brain/Head without Contrast IMPRESSION: Empty sella deformity of uncertain significance although may be seen with pseudotumor cerebri.. No evidence for obstructive hydrocephalus mass or acute bleed. If concern for acute infarct MRI recommended Electronically Signed: Adalid Welch MD at 17:59 EDT , Service support ,
--- NOTE | 2020-01-31 16:59 | EKG12_ITS ---
Test Reason : DIZZY Blood Pressure : / mmHG Vent. Rate : 092 BPM Atrial Rate : 092 BPM P-R Int : 162 ms QRS Dur : 076 ms QT Int : 368 ms P-R-T Axes : 030 010 019 degrees QTc Int : 455 ms Normal sinus rhythm Normal ECG Confirmed by SORAIDA PATEL, MING ([id number]), pictures editor SHIMON ELY ([id number]) on 02/14/2020 9:26:48 A M Referred By: JULIET/CAMILLA Confirmed By:ABDIRIZAK QUIGLEY MD
--- NOTE | 2020-01-31 17:05 | ED.VIS.GEN ---
History of Present Illness Chief Complaint: Dizziness Informant: Patient, Family Onset: Today Context: Gradual Onset Timing: Continuous Current Severity: Moderate Maximum Severity: Moderate Narrative: The patient is a 44-year-old female with only medical history of depression who presents to the emergency department with multiple complaints. Patient states she got a flu shot yesterday afternoon. She states that she was feeling well. She states that today, around 2:00, she had the sensation of dizziness. She states she felt as if she was floating. She also began to have some numbness of bilateral lower extremities. She states that she had some abdominal cramping and felt like she had a bowel movement but did not. She states she is also been dealing with some shortness of breath for the past 2 months. She has seen pulmonology and had an outpatient chest CT. Today, when she was having the symptoms, she also had a mild headache. She states that it was gradual and felt like throbbing. She denies any significant history of headaches. She states it was not the worst headache of her life. She denies any visual change. Prior similar symptoms: No Recent Illness/Hospitalization: No Past Medical History - Allergies and Home Meds Allergies/Adverse Reactions: Allergies acetaminophen [From Percocet] Allergy (Verified 01/31/20 16:47) Angioedema latex Allergy (Verified 01/31/20 16:47) Rash oxycodone [From Percocet] Allergy (Verified 01/31/20 16:47) Angioedema Primary Care Physician: Luis Miguel Miller MD [Primary Care Provider] - 2 Days Prior records reviewed: Yes Past Medical History: None Surgical History: noncontributory Smoking Status: Never smoker Review of Systems General: Reports: Malaise. Denies: Chills, Fever, Sweats Eyes: Denies: Visual changes - bilaterally, Diplopia ENT: Denies: Rhinorrhea, Sore throat Cardiovascular: Denies: Chest pain, Palpitations Respiratory: Denies: Dyspnea, Cough, Dyspnea on exertion Gastrointestinal: Reports: Abdominal pain, Nausea. Denies: Vomiting, Diarrhea, Melena, Hematochezia Genitourinary: Denies: Dysuria, Hematuria, Frequency Musculoskeletal: Denies: Back pain, Extremity Pain Skin: Denies: Rash, Wounds Neurological: Reports: Weakness, Parasthesia. Denies: Headache, Numbness Physical Exam Vital Signs/Narrative: Vital Signs Temp Pulse Resp BP Pulse Ox 01/31/20 16:42 97.9 F 104 H 17 133/95 H 100 Inital Vital Signs reviewed: Yes General: Well nourished, Well developed, No Acute Distress Head: Normocephalic, Atraumatic Eyes: Perrl, EOMI ENT: Moist mucous membranes, No rhinorrhea Neck: Supple, Nontender Cardiovascular: Regular rate, Regular rhythm, No murmurs Respiratory: No distress, CTA bilaterally, Chest nontender Abdomen: Soft, Nontender, Nondistended, Normal bowel sounds Back: Nontender, Normal Inspection Extremities: Nontender, No edema Skin: Normal color, No rash Neurological: Alert, Oriented x3, Cranial nerves II-XII grossly intact, Weakness - Patient has 4 out of 5 strength of the left lower extremity. She has 3+ reflexes of the left lower extremity. There is 6 beats of clonus on the left lower extremity. Patient also has 3+ reflexes of the right lower extremity. There is 3 beats of clonus on the right. Psychological: Normal affect, Normal Mood Diagnostic/Tx/Re-eval Clinical Impression(s) from Imaging Studies Brain CT 01/31/20 16:59 IMPRESSION: Empty sella deformity of uncertain significance although may be seen with pseudotumor cerebri.. No evidence for obstructive hydrocephalus mass or acute bleed. If concern for acute infarct MRI recommended Electronically Signed: Adalid Welch MD at 17:59 EDT , Service support , Head/Neck CTA 01/31/20 18:03 IMPRESSION: Normal CTA Head and neck with contrast. Electronically Signed: Adalid Welch MD at 19:20 EDT , Service support , Abnormal Lab Results 01/31/20 01/31/20 17:30 17:30 WBC 7.1 RBC 4.17 L Hgb 11.9 L Hct 36.8 L MCV 88.2 MCH 28.5 MCHC 32.3 RDW Std Deviation 42.7 RDW Coeff of Jeanette 13.2 Plt Count 285 MPV 9.1 Immature Gran % (Auto) 0.300 Neut % (Auto) 66.2 Lymph % (Auto) 20.5 Gallia % (Auto) 7.0 Eos % (Auto) 5.0 Baso % (Auto) 1.0 Absolute Neuts (auto) 4.7 Absolute Lymphs (auto) 1.46 Nucleated RBC % 0 Sodium 139 Potassium 3.6 Chloride 108 H Carbon Dioxide 26.0 Anion Gap 5 BUN 7 Creatinine 0.79 Estim Creat Clear Calc 80.11 Est GFR (MDRD) Af Amer 103 Est GFR (MDRD) Non-Af 85 BUN/Creatinine Ratio 8.9 L Glucose 85 Calcium 9.3 Magnesium 2.0 Total Bilirubin 0.30 AST 17 ALT 22 Alkaline Phosphatase 128 H Total Protein 7.5 Albumin 3.7 Globulin 3.8 Albumin/Globulin Ratio 1.0 - Medical Decision Making Patient presents with a vague constellation of symptoms. She states she felt like she was floating and had some paresthesias of her lower extremities. She had her influenza vaccine yesterday. I did consider the diagnosis of Gupedro pablo Rojas?, however the patient is hyperreflexic with some clonus. This does not clinically fit and it does seem to be rather acute for that diagnosis. Metabolic work-up was pursued. CT noncontrast demonstrates an empty sella, but no other acute or normality. I did obtain a CTA given the symptoms. This was negative. Her labs are unremarkable. On reevaluation, after fluids, she has had no further clonus and is extinguished. I do feel that she is going to likely require some further outpatient work-up, but at this time I do feel that she is safe for outpatient follow-up. I did primary substance abuse counselor her on concerning symptoms including numbness, weakness, tingling, and reasons to return. She is comfortable with this plan of care and will be discharged home. Impression 1, paresthesias ED Disposition - Plan for ED Patient: Disposition: Home or Assisted Living Instructions: ED Dizziness [facility] Referrals: Luis Miguel Miller MD [Primary Care Provider] - 2 Days
[2020-01-31 17:37] VITALS: PULSE 86; RESP 14; O2SAT 100
[2020-01-31 17:43] LABS: Absolute Lymphocyte Count 1.46 X10^3/uL (0.83-4.51); Absolute Neutrophil Count 4.7 X10^3/uL (2.0-7.7); Basophil# 0.07 X10^3/uL; Eosinophil# 0.36 X10^3/uL; Hematocrit 36.8 % (37-47); Hemoglobin 11.9 g/dL (12.0-15.0); Lymphocyte # 1.46 X10^3/ul (4.0); Lymphocyte % 20.5 % (19-41); Mean Corp Hgb Conc 32.3 g/dL (32-36); Mean Corpuscular Hgb 28.5 pg (27.0-32.0); Mean Corpuscular Volume 88.2 fL (81-99); Mean Platelet Vol. 9.1 fl (6.2-12.0); NRBC Flagged by Analyzer 0 % (0-5); Neutrophil # 4.72 X10^3/uL (2.7-7.7); Neutrophil % 66.2 % (47-70); Platelet Count 285 K/mm3 (150-450); RBC Distribution Width CV 13.2 % (11.6-14.6); RBC Distribution Width SD 42.7 fl (35.1-43.9); Red Blood Count 4.17 M/mm3 (4.2-5.4); White Blood Count 7.1 K/mm3 (4.4-11.0)
--- NOTE | 2020-01-31 18:03 | CT_ITS ---
STUDY: CTA HEAD AND NECK WITH CONTRAST REASON FOR EXAM: Female, 44 years old. DIZZINESS,CONFUSION,NUMBNESS IN BILAT LE,EMPTY SELLA SEEN ON C- BRAIN -- HX:ASTHMA,GERD RADIATION DOSAGE (If Supplied By Facility): CTDIvol = ( 18.88 ) mGy, DLP = ( 626.18 ) mGycm TECHNIQUE: CT angiography was performed with a multi-detector CT scanner. Data acquisition was obtained from the skull base through the vertex following intravenous administration of IV 100mL Isovue-370. MIP images were reconstructed from the axial data set. Post-processing of the angiographic images was performed, with multiplanar reformation and 3D reconstruction. Individualized dose optimization techniques were used for this CT. COMPARISON: No relevant priors. FINDINGS: Normal bilateral petrous carotid arteries. Normal right cavernous carotid artery with a normal supraclinoid bifurcation. Normal left cavernous carotid artery with a normal supraclinoid bifurcation. Normal right A1 segments of the anterior cerebral artery. Normal left A1 segments of the anterior cerebral artery. Normal intact anterior communicating artery (ACOM). Normal bilateral A2 segments of the anterior cerebral arteries. Normal right M1 and M2 segments of the middle cerebral arteries, with a normal M1 bifurcation. Normal left M1 and M2 segments of the middle cerebral arteries, with a normal M1 bifurcation. Posterior communicating arteries aren''t visualized consistent with normal variant). Normal bilateral vertebral arteries. Normal basilar artery with a normal basilar bifurcation. The visualized bilateral superior cerebellar (SCA) arteries are normal. Normal bilateral P1, P2 and visualized P3 segments of the posterior cerebral arteries. There is no demonstrated aneurysm of the [place]. There is no demonstrated abnormality of the visualized brain. AORTIC ARCH: Normal visualized aortic arch. Normal origins of the brachiocephalic, left common carotid, and left subclavian arteries. RIGHT CAROTID ARTERIES: Normal right common carotid artery (CCA). Normal right common carotid bulb. Normal origin of the right internal carotid (ICA) artery without a hemodynamically significant stenosis. Normal visualized cervical portion of the right internal carotid artery. Normal origin of the right external carotid artery (ECA). LEFT CAROTID ARTERIES: Normal left common carotid artery (CCA). Normal left common carotid bulb. Normal origin of the left internal carotid (ICA) artery without a hemodynamically significant stenosis. Normal visualized cervical portion of the left internal carotid artery. Normal origin of the left external carotid artery (ECA). VERTEBRAL ARTERIES: Normal bilateral vertebral arteries. CT/CTA Head AND Neck W/ Contrast IMPRESSION: Normal CTA Head and neck with contrast. Electronically Signed: Adalid Welch MD at 19:20 EDT , Service support ,
[2020-01-31 18:04] LABS: AST(SGOT) 17 U/L (15-37); Alanine Aminotransfer ALT/SGPT 22 U/L (13-56); Albumin, Serum 3.7 g/dL (3.2-5.0); Alkaline Phosphatase 128 U/L (45-117); Anion Gap 5 (5-15); BUN 7 mg/dL (7-18); BUN/Creat Ratio 8.9 RATIO (10-20); Calcium,Total 9.3 mg/dL (8.5-10.1); Chloride 108 mmol/L (98-107); Creatinine, Serum 0.79 mg/dL (0.55-1.02); EST Glomerular Filtration Rate 85 mL/min (>60); Est Glom Filt Rate - Afr Amer 103 mL/min (>60); Estimated Creatinine Clearance 80.11 ml/min; Globulin 3.8 g/dL (2.2-4.2); Glucose 85 mg/dL (74-106); Potassium 3.6 mmol/L (3.5-5.1); Protein, Total 7.5 g/dL (6.4-8.2); Sodium Level 139 mmol/L (136-145)
[2020-01-31 20:06] VITALS: BP 120/85; PULSE 78; RESP 18; O2SAT 99
== END 2020-01-31 20:07 | disposition home or self-care (01) ==
LOC: ED 17:23
PROVIDERS: Emergency Provider Emergency Medicine; PCP Family Medicine
DX: R20.2 Paresthesia of skin (principal); R42 Dizziness and giddiness; R10.9 Unspecified abdominal pain; R51.9 Headache, unspecified; R06.02 Shortness of breath
CPT/HCPCS: 70450; 70496; 70498; 80053; 83735; 85025; 93005; 99281; 99285; J7030; Q9967

== ENCOUNTER → 2020-02-27 09:28 | Outpatient (CLI) | payer BC, SELFPAY ==
[2020-01-31 16:42] VITALS: BMI 28.4
--- NOTE | 2020-02-27 09:41 | MRI_ITS ---
STUDY: MRI BRAIN WITH AND WITHOUT CONTRAST REASON FOR EXAM: Female, 44 years old. VERTIGO, CONCERN FOR MS -- tingling bilat extremities, cognitive changes,dizziness TECHNIQUE: Standardized multiplanar fat and water weighted pulse sequences were obtained. IV dotarem 15ml was administered for the contrast portion of the examination. COMPARISON: CT 01/31/2020 FINDINGS: Normal size of the ventricles and extra-axial spaces for the patient''s age. Normal white matter tracts of the supratentorial brain. There is no evidence for recent intracranial ischemia or other cause of cytotoxic edema on diffusion weighted imaging (DWI). Normal T2* images of the brain without demonstrated susceptibility artifact. There is no demonstrated hemosiderin stain. Normal bilateral basal ganglia. Normal thalami. There is no extra-axial fluid accumulation. Normal flow voids within the major intracranial circulation suggesting patency by spin echo criteria. Normal venous enhancement. There is no enhancing intra-axial or extra-axial abnormality. Normal sella turcica, pituitary gland, infundibular stalk, optic chiasm and hypothalamus. Normal tectal plate and pineal gland. Normal midbrain, hui and medulla. Normal cerebellum. Normal basal cisterns. Normal bilateral temporal bones. Normal bilateral internal auditory canals. No demonstrated orbital abnormality, within the constraints of a routine brain study. Mucosal thickening in the maxillary sinuses consistent with chronic sinusitis. Normal calvarium and skull base. Normal visualized soft tissue structures. Normal visualized upper cervical spine. MRI/Brain W/WO Contrast IMPRESSION: Normal unenhanced and enhanced MRI of the brain. Chronic bilateral maxillary sinusitis. Electronically Signed: Norberto Lopez MD at 13:56 EST Tel , Service support ,
== END ==
PROVIDERS: PCP Family Medicine
DX: R42 Dizziness and giddiness (principal)
CPT/HCPCS: 70553; A9575

== ENCOUNTER → 2020-03-07 06:58 | Outpatient (CLI) | payer BC, SELFPAY ==
[2020-02-29 10:44] VITALS: BMI 30.5
[2020-03-07] MEDS: Methacholine Chloride 18 ml neb kit IH (07:56)
--- NOTE | 2020-03-09 10:36 | BRONCHALL ---
Bronchoprovocation Challenge - Bronchoprovocation Challenge Bronchoprovocation Challenge: INTRODUCTION: The patient is a 44-year-old female who presents for a bronchoprovocation challenge secondary to a diagnosis of shortness of breath. Respiratory therapy reported good patient effort and reproducible results. INTERPRETATION: Initial spirometry did not show any large airways obstructive ventilatory defect and preserved airflows throughout. The patient was then given progressively increasing doses of methacholine in a standardized fashion. At no point during testing of the patient's FEV1 drop to the threshold that would be considered a positive test. IMPRESSION: Negative methacholine challenge.
== END ==
PROVIDERS: PCP Family Medicine; Referring Provider Internal Medicine Critical Care Medicine; Visit Provider Internal Medicine Critical Care Medicine
DX: R06.02 Shortness of breath (principal)
CPT/HCPCS: 94070; 95070

== ENCOUNTER → 2020-06-18 15:12 | Outpatient (CLI) | payer BC, SELFPAY ==
[2020-05-30 10:52] VITALS: BMI 31.8
[2020-06-18 18:01] LABS: Absolute Lymphocyte Count 1.68 X10^3/uL (0.83-4.51); Basophil# 0.08 X10^3/uL; Basophil% 0.8 % (0-1); Eosinophil# 0.17 X10^3/uL; Eosinophils% 1.8 % (0-5); Hematocrit 38.3 % (37-47); Hemoglobin 12.3 g/dL (12.0-15.0); Lymphocyte # 1.68 X10^3/ul (4.0); Lymphocyte % 17.6 % (19-41); Mean Corp Hgb Conc 32.1 g/dL (32-36); Mean Corpuscular Hgb 28.7 pg (27.0-32.0); Mean Corpuscular Volume 89.3 fL (81-99); Mean Platelet Vol. 9.3 fl (6.2-12.0); Monocyte% 6.3 % (0-10); NRBC Flagged by Analyzer 0 % (0-5); Neutrophil # 6.97 X10^3/uL (2.7-7.7); Platelet Count 303 K/mm3 (150-450); RBC Distribution Width CV 13.6 % (11.6-14.6); RBC Distribution Width SD 44.1 fl (35.1-43.9); Red Blood Count 4.29 M/mm3 (4.2-5.4); White Blood Count 9.6 K/mm3 (4.4-11.0)
[2020-06-18 18:21] LABS: Erythrocyte Sedimentation Rate 11 mm/hr (0-30)
[2020-06-18 18:33] LABS: ALB/GLOB Ratio 0.9 RATIO (0.9-2.4); AST(SGOT) 17 U/L (15-37); Alanine Aminotransfer ALT/SGPT 27 U/L (13-56); Albumin, Serum 3.7 g/dL (3.2-5.0); Alkaline Phosphatase 110 U/L (45-117); Anion Gap 7 (5-15); BUN 12 mg/dL (7-18); BUN/Creat Ratio 17.9 RATIO (10-20); Calcium,Total 9.1 mg/dL (8.5-10.1); Chloride 105 mmol/L (98-107); Creatinine, Serum 0.67 mg/dL (0.55-1.02); EST Glomerular Filtration Rate 102 mL/min (>60); Est Glom Filt Rate - Afr Amer 123 mL/min (>60); GGTP 30 U/L (5-55); Globulin 3.9 g/dL (2.2-4.2); Glucose 80 mg/dL (74-106); Lipase 103 U/L (73-393); Potassium 3.7 mmol/L (3.5-5.1); Protein, Total 7.6 g/dL (6.4-8.2); Sodium Level 139 mmol/L (136-145); Thyroid Stim Hormone (TSH) 1.35 uIU/mL (0.358-3.74)
[2020-06-20 16:08] LABS: Endomysial Antibody IgA Positive (Negative)
[2020-06-20 16:42] LABS: Immunoglobulin A 98 mg/dL (87-352); t-Transglutaminase IgA 12 U/mL (0-3)
== END ==
PROVIDERS: PCP Family Medicine; Referring Provider Family Medicine; Visit Provider Family Medicine
DX: R19.7 Diarrhea, unspecified (principal)
CPT/HCPCS: 36415; 80053; 82784; 82977; 83516; 83690; 84443; 85025; 85652; 86140; 86255

== ENCOUNTER → 2020-06-19 11:18 | Outpatient (CLI) | payer BC, SELFPAY ==
[2020-05-30 10:52] VITALS: BMI 31.8
[2020-06-20 16:43] LABS: Giardia Lamblia, Stool EIA Negative (Negative)
== END ==
PROVIDERS: PCP Family Medicine; Referring Provider Family Medicine; Visit Provider Family Medicine
DX: R19.7 Diarrhea, unspecified (principal)
CPT/HCPCS: 83630; 83986; 87177; 87209; 87329; 87493; 87506

== ENCOUNTER → 2020-06-20 11:49 | Outpatient (CLI) | payer BC, SELFPAY ==
[2020-05-30 10:52] VITALS: BMI 31.8
== END ==
PROVIDERS: PCP Family Medicine; Referring Provider Family Medicine; Visit Provider Family Medicine
DX: R19.7 Diarrhea, unspecified (principal)
CPT/HCPCS: 87177; 87209

== ENCOUNTER → 2020-10-07 16:19 | Outpatient (CLI) | payer BC, SELFPAY ==
[2020-05-30 10:52] VITALS: BMI 31.8
[2020-10-11 08:28] LABS: H. PYLORI STOOL AG Negative (Negative)
== END ==
PROVIDERS: PCP Family Medicine; Referring Provider Family Medicine; Visit Provider Family Medicine
DX: K21.9 Gastro-esophageal reflux disease without esophagitis (principal)

== ENCOUNTER → 2021-04-06 09:18 | Outpatient (CLI) | payer BC, SELFPAY ==
[2021-04-06 10:02] LABS: Absolute Lymphocyte Count 1.15 X10^3/uL (0.83-4.51); Absolute Neutrophil Count 5.3 X10^3/uL (2.0-7.7); Basophil# 0.07 X10^3/uL; Eosinophil# 0.17 X10^3/uL; Eosinophils% 2.4 % (0-5); Hematocrit 40.5 % (37-47); Hemoglobin 12.5 g/dL (12.0-15.0); Lymphocyte # 1.15 X10^3/ul (0.83-4.51); Mean Corp Hgb Conc 30.9 g/dL (32-36); Mean Corpuscular Hgb 26.5 pg (27.0-32.0); Mean Corpuscular Volume 85.8 fL (81-99); Monocyte# 0.49 X10^3/uL; Monocyte% 6.8 % (0-10); NRBC Flagged by Analyzer 0 % (0-5); Neutrophil # 5.27 X10^3/uL (2.7-7.7); Neutrophil % 73.5 % (47-70); Platelet Count 322 K/mm3 (150-450); RBC Distribution Width CV 13.6 % (11.6-14.6); Red Blood Count 4.72 M/mm3 (4.2-5.4); White Blood Count 7.2 K/mm3 (4.4-11.0)
[2021-04-06 10:38] LABS: ALB/GLOB Ratio 0.8 RATIO (0.9-2.4); AST(SGOT) 13 U/L (15-37); Alanine Aminotransfer ALT/SGPT 19 U/L (13-56); Albumin, Serum 3.4 g/dL (3.2-5.0); Alkaline Phosphatase 119 U/L (45-117); Anion Gap 7 (5-15); BUN 9 mg/dL (7-18); BUN/Creat Ratio 10.6 RATIO (10-20); Calcium,Total 8.9 mg/dL (8.5-10.1); Chloride 107 mmol/L (98-107); Cholesterol 200 mg/dL (200); Creatinine, Serum 0.85 mg/dL (0.55-1.02); EST Glomerular Filtration Rate 78 mL/min (>60); Est Glom Filt Rate - Afr Amer 94 mL/min (>60); Glucose 87 mg/dL (74-106); High Density Lipoprotein 43 mg/dL; Potassium 3.8 mmol/L (3.5-5.1); Protein, Total 7.4 g/dL (6.4-8.2); Sodium Level 142 mmol/L (136-145); Thyroid Stim Hormone (TSH) 3.31 uIU/mL (0.358-3.74); Triglycerides 210 mg/dL; Very Low Density Lipoprotein 42 mg/dL (5-40)
== END ==
PROVIDERS: PCP Family Medicine; Visit Provider Family Medicine
DX: F33.2 Major depressive disorder, recurrent severe without psychotic features (principal); K90.0 Celiac disease; Z80.3 Family history of malignant neoplasm of breast; K76.0 Fatty (change of) liver, not elsewhere classified
CPT/HCPCS: 36415; 80053; 80061; 84443; 85025

== ENCOUNTER 2021-04-30 12:05 | Outpatient (CLI) | payer BC, SELFPAY ==
[2021-04-30 13:16] LABS: NATERA MAILED SPECIMEN
== END 2021-04-30 23:59 | disposition short-term general hospital (02) ==
LOC: LAB 12:07
PROVIDERS: PCP Family Medicine; Visit Provider Nurse Practitioner Women's Health
DX: Z15.01 Genetic susceptibility to malignant neoplasm of breast (principal); Z80.3 Family history of malignant neoplasm of breast
CPT/HCPCS: 36415

== ENCOUNTER 2021-06-02 07:16 | Outpatient (CLI) | payer BC, SELFPAY ==
--- NOTE | 2021-06-02 07:20 | BI_ITS ---
MAMMOGRAPHY - BILATERAL SCREENING REASON FOR EXAM: Female, 45 years old. Routine annual screening examination. PERTINENT HISTORY: Mother with breast cancer. TECHNIQUE: Digital bilateral breast ratna (3D mammographic acquisition) in the CC and MLO projections. 2-D mediolateral oblique (MLO) and craniocaudad (CC) views of both breasts were obtained. CAD: Full Field Digital Mammography with Computer Added Detection was performed. COMPARISON: Comparison is made with prior study dated 11/06/2018. FINDINGS: Breast Composition: There are scattered areas of fibroglandular density. There are no dominant masses or suspicious calcifications. Stable asymmetry of breast tissue with more breast tissue is seen in the upper quadrant of the right breast as compared to the left side. No other significant abnormalities are identified. There has been no significant change since the prior study. BI/SCRN MAMM (CAD)W/RATNA BILAT IMPRESSION: Stable bilateral screening mammogram. Yearly follow-up mammogram recommended. (A) ASSESSMENT CATEGORY: BIRADS Category 2: Benign. A letter regarding these results will be sent to the patient by the facility within 30 days. Approximately 10% of breast cancers are not detected by mammography. A normal mammogram should not delay biopsy of a clinically suspicious abnormality. [id number] Electronically Signed: Barber Corral MD at 8:52 EST ,
== END 2021-06-02 23:59 | disposition home or self-care (01) ==
LOC: OPBI 07:18
PROVIDERS: PCP Family Medicine; Referring Provider Nurse Practitioner Women's Health; Visit Provider Nurse Practitioner Women's Health
DX: Z12.31 Encounter for screening mammogram for malignant neoplasm of breast (principal); Z80.3 Family history of malignant neoplasm of breast
CPT/HCPCS: 77063; 77067

== ENCOUNTER → 2022-02-09 | Outpatient (CLI) | payer BC, SELFPAY ==
[2022-02-12 15:40] LABS: ANTINUCLEAR ANTIBODIES DIRECT Negative (Negative); Anti-Smooth Muscle ABS 5 Units (0-19)
== END | disposition home or self-care (01) ==
LOC: MFPLAB 16:37
PROVIDERS: PCP Family Medicine; Referring Provider Family Medicine; Visit Provider Family Medicine
DX: K76.0 Fatty (change of) liver, not elsewhere classified (principal)
CPT/HCPCS: 36415; 83516; 86038; 86140; 86225; 86235

== ENCOUNTER → 2022-02-12 | Outpatient (CLI) | payer BC, SELFPAY ==
--- NOTE | 2022-02-12 09:21 | US_ITS ---
STUDY: ABDOMINAL ULTRASOUND - RIGHT UPPER QUADRANT REASON FOR VISIT: Female, 46 years old . Right upper quadrant pain for several months. TECHNIQUE: Ultrasound evaluation of the right upper quadrant was performed with real-time and static sarkar-scale imaging. TECHNICAL QUALITY: Adequate. COMPARISON: Comparison is made with prior study 01/04/2013. FINDINGS: Liver: The liver measures 13.2 cm. There is increased echogenicity consistent with fatty infiltration. The bile ducts are within normal limits. There is hepatic color flow. The direction of portal flow is hepatopetal. There is no demonstrated mass lesion. Gallbladder: Normal distended gallbladder. The gallbladder wall measures 2.0 mm. There is a negative sonographic Siegel''s sign. There is no pericholecystic fluid. There are no gallstones. Common Bile Duct (C.B.D.): The common bile duct measures 4.0 mm. Pancreas: Normal size of the head, body and tail of the pancreas. There is increased echogenicity of the pancreas. There is no demonstrated pancreatic mass or cyst. Right Kidney: Normal size of the right kidney. The right kidney measures 9.4 cm x 4.2 cm x 5.3 cm. Normal renal cortex. The right cortex measures 1.4 cm. There is no demonstrated renal mass or cyst. There is no right hydronephrosis. US/Abdomen Limited IMPRESSION: Fatty infiltration of the liver. Electronically Signed: Barber Corral MD at 13:42 EDT ,
== END | disposition home or self-care (01) ==
PROVIDERS: PCP Family Medicine; Referring Provider Family Medicine; Visit Provider Family Medicine
DX: R10.11 Right upper quadrant pain (principal)
CPT/HCPCS: 76705

== ENCOUNTER → 2022-06-08 | Outpatient (CLI) | payer BC, SELFPAY ==
--- NOTE | 2022-06-08 08:03 | BI_ITS ---
MAMMOGRAPHY - BILATERAL SCREENING REASON FOR EXAM: Female, 46 years old. Routine annual screening examination. PERTINENT HISTORY: Mother with breast cancer. TECHNIQUE: Digital bilateral breast ratna (3D mammographic acquisition) in the CC and MLO projections. 2-D mediolateral oblique (MLO) and craniocaudad (CC) views of both breasts were obtained. CAD: Full Field Digital Mammography with Computer Added Detection was performed. COMPARISON: Comparison is made with prior study dated 06/02/2021 and 05/09/2018. FINDINGS: Breast Composition: There are scattered areas of fibroglandular density. There are no dominant masses or suspicious calcifications. Stable asymmetry of breast tissue where more breast tissue is seen in the upper quadrant of the right breast as compared to the left side. No other significant abnormalities are identified. There has been no significant change since the prior study. BI/SCRN MAMM (CAD)W/RATNA BILAT IMPRESSION: Stable bilateral screening mammogram. Yearly follow-up mammogram recommended. (A) ASSESSMENT CATEGORY: BIRADS Category 2: Benign. A letter regarding these results will be sent to the patient by the facility within 30 days. Approximately 10% of breast cancers are not detected by mammography. A normal mammogram should not delay biopsy of a clinically suspicious abnormality. [id number] Electronically Signed: Barber Corral MD at 9:00 EST ,
== END | disposition home or self-care (01) ==
LOC: OPBI 08:02
PROVIDERS: PCP Family Medicine; Visit Provider Nurse Practitioner Women's Health
DX: Z12.31 Encounter for screening mammogram for malignant neoplasm of breast (principal)
CPT/HCPCS: 77063; 77067

== ENCOUNTER → 2023-01-28 | Outpatient (CLI) | payer BC, SELFPAY ==
[2023-01-28 17:28] LABS: Absolute Lymphocyte Count 1.45 X10^3/uL (0.83-4.51); Basophil# 0.07 X10^3/uL; Basophil% 0.8 % (0-1); Eosinophil# 0.15 X10^3/uL; Eosinophils% 1.8 % (0-5); Hematocrit 34.9 % (37-47); Lymphocyte # 1.45 X10^3/ul (0.83-4.51); Lymphocyte % 17.4 % (19-41); Mean Corp Hgb Conc 31.5 g/dL (32-36); Mean Corpuscular Hgb 26.7 pg (27.0-32.0); Mean Corpuscular Volume 84.7 fL (81-99); Mean Platelet Vol. 9.5 fl (6.2-12.0); Monocyte# 0.59 X10^3/uL; Monocyte% 7.1 % (0-10); NRBC Flagged by Analyzer 0 % (0-5); Neutrophil # 6.02 X10^3/uL (2.7-7.7); Neutrophil % 72.5 % (47-70); Platelet Count 286 K/mm3 (150-450); RBC Distribution Width CV 14.6 % (11.6-14.6); RBC Distribution Width SD 44.9 fl (35.1-43.9); Red Blood Count 4.12 M/mm3 (4.2-5.4); White Blood Count 8.3 K/mm3 (4.4-11.0)
[2023-01-28 18:07] LABS: ALB/GLOB Ratio 0.9 RATIO (0.9-2.4); AST(SGOT) 9 U/L (15-37); Alanine Aminotransfer ALT/SGPT 21 U/L (13-56); Albumin, Serum 3.6 g/dL (3.2-5.0); Alkaline Phosphatase 109 U/L (45-117); Anion Gap 9 (5-15); BUN 10 mg/dL (7-18); BUN/Creat Ratio 12.4 RATIO (10-20); Calcium,Total 8.6 mg/dL (8.5-10.1); Chloride 107 mmol/L (98-107); Creatinine, Serum 0.81 mg/dL (0.55-1.02); EST Glomerular Filtration Rate 81 mL/min (>60); Est Glom Filt Rate - Afr Amer 98 mL/min (>60); GGTP 26 U/L (5-55); Globulin 3.8 g/dL (2.2-4.2); Glucose 90 mg/dL (74-106); Potassium 3.5 mmol/L (3.5-5.1); Protein, Total 7.4 g/dL (6.4-8.2); Sodium Level 140 mmol/L (136-145)
== END | disposition home or self-care (01) ==
LOC: MFPLAB 16:47
PROVIDERS: PCP Family Medicine; Visit Provider Family Medicine
DX: R10.11 Right upper quadrant pain (principal)
CPT/HCPCS: 36415; 80053; 82977; 85025; 86140

== ENCOUNTER → 2023-02-04 | Outpatient (CLI) | payer BC, SELFPAY ==
--- NOTE | 2023-02-04 07:23 | US_ITS ---
EXAM: US ABDOMEN LIMITED, RIGHT UPPER QUADRANT CLINICAL INDICATION: RUQ pain, pos-prandial pain, concern for biliary disease TECHNIQUE: Real-time ultrasound of the right upper quadrant with image documentation. COMPARISON: Prior examination of 02/12/2022. FINDINGS: LIVER: The liver measures about 13.4 cm in length and is echogenic in texture consistent with fatty infiltration. No intrahepatic biliary ductal dilation. GALLBLADDER: Unremarkable. No shadowing gallstone. No pericholecystic fluid. Negative sonographic Siegel''s sign. Normal gallbladder wall measuring 2.5 mm. COMMON BILE DUCT: Unremarkable as visualized. The proximal common bile duct is within normal limits for the patient''s age. Normal common bile duct measures 2.3 mm. PANCREAS: The tail of the pancreas is obscured by bowel gas. RIGHT KIDNEY: The right kidney measures 9.6 cm in length. There is no hydronephrosis. No shadowing calculus. No focal lesion or perinephric collection is demonstrated. US/Abdomen Limited IMPRESSION: 1. Fatty infiltration of the liver. 2. No evidence of gallstones. Electronically Signed: Josue Fregoso MD at 10:12 EDT ,
== END | disposition home or self-care (01) ==
LOC: US 07:22
PROVIDERS: PCP Family Medicine; Referring Provider Family Medicine; Visit Provider Family Medicine
DX: R10.11 Right upper quadrant pain (principal)
CPT/HCPCS: 76705

== ENCOUNTER → 2023-02-21 | Outpatient (CLI) | payer BC, SELFPAY ==
--- NOTE | 2023-02-21 09:55 | NM_ITS ---
CLINICAL: 47-year-old female with history of right upper quadrant abdominal pain. RADIONUCLIDE HEPATOBILIARY SCINTIGRAPHY COMPARISON: Previous hepatobiliary scintigraphy study dated 03/13/2012 FINDINGS: Following the intravenous administration of 6.0 mCi of 99m Tc Mebrofenin, hepatobiliary images reveal: 1. Relatively prompt and homogeneous radiopharmaceutical concentration is noted by a normal sized liver. No parenchymal defects are identified. 2. Gallbladder activity is identified at 15 minutes post radiopharmaceutical administration. 3. Small intestinal tract is observed at 45 minutes following tracer injection. 4. Washout of the radiopharmaceutical by the hepatic parenchyma appears qualitatively normal. Cholecystokinin (0.02 ug/kg) was administered intravenously over a 30-minute period. The post CCK gallbladder ejection fraction calculated at 20 minutes following Cholecystokinin administration was noted to be 85 % (normal greater than 35%). During 30 minutes of post CCK imaging, there is no scintigraphic evidence of reflux of the radiotracer into the common hepatic duct. There is visualized refilling of the gallbladder on the post cholecystokinin image acquisitions. NM/Hepatobilliary Img w/Pharm Int IMPRESSION: 1. A gallbladder ejection fraction calculated to be greater than 35% following the administration of Cholecystokinin makes the probability of functional hepatobiliary disease (gallbladder and/or sphincter of Oddi dyskinesia) and/or organic hepatobiliary disease (chronic acalculous cholecystitis and/or cystic duct syndrome) to be low. (Lila Maciel et al, Journal of Nuclear Medicine 32:1695, 1990). 2. An encountered normal gallbladder ejection fraction with refilling of the gallbladder following CCK administration may represent the presence of Sphincter of Oddi dysfunction. Correlation with Sphincter of Oddi manometry may be of benefit. (Chuck and Chuck, J Nucl Med 38:1824, 1997). Electronically Signed: Norberto Carrasco DO at 23:39 EST ,
== END | disposition home or self-care (01) ==
PROVIDERS: PCP Family Medicine; Referring Provider Family Medicine; Visit Provider Family Medicine
DX: R10.11 Right upper quadrant pain (principal)
CPT/HCPCS: 78227; A9537; J2805

== ENCOUNTER → 2023-07-15 | Outpatient (CLI) | payer BC, SELFPAY ==
--- NOTE | 2023-07-15 08:10 | BI_ITS ---
MAMMOGRAPHY - BILATERAL SCREENING REASON FOR EXAM: Female, 47 years old. Routine annual screening examination. PERTINENT HISTORY: Mother with breast cancer. TECHNIQUE: Digital bilateral breast ratna (3D mammographic acquisition) in the CC and MLO projections. 2-D mediolateral oblique (MLO) and craniocaudad (CC) views of both breasts were obtained. CAD: Full Field Digital Mammography with Computer Added Detection was performed. COMPARISON: Comparison is made with prior study dated June 08, 2022. FINDINGS: Breast Composition: There are scattered areas of fibroglandular density. There are no dominant masses or suspicious calcifications. Stable asymmetry of breast tissue where more breast tissue is seen in the upper-outer quadrant right breast No other significant abnormalities are identified. There has been no significant change since the prior study. BI/SCRN MAMM (CAD)W/RATNA BILAT IMPRESSION: Stable bilateral screening mammogram. Yearly follow-up mammogram recommended. (A) ASSESSMENT CATEGORY: BIRADS Category 2: Benign. A letter regarding these results will be sent to the patient by the facility within 30 days. Approximately 10% of breast cancers are not detected by mammography. A normal mammogram should not delay biopsy of a clinically suspicious abnormality. [id number] Electronically Signed: Barber Corral MD at 9:14 EDT ,
== END | disposition home or self-care (01) ==
LOC: OPBI 08:09
PROVIDERS: PCP Family Medicine; Referring Provider Nurse Practitioner Women's Health; Visit Provider Nurse Practitioner Women's Health
DX: Z12.31 Encounter for screening mammogram for malignant neoplasm of breast (principal); Z80.3 Family history of malignant neoplasm of breast
CPT/HCPCS: 77063; 77067

== ENCOUNTER → 2023-08-10 | Outpatient (CLI) | payer BC, SELFPAY ==
[2023-08-13 14:13] LABS: HPV APTIMA, High Risk Negative (Negative)
== END | disposition home or self-care (01) ==
PROVIDERS: PCP Family Medicine; Visit Provider Nurse Practitioner Women's Health
DX: Z12.4 Encounter for screening for malignant neoplasm of cervix (principal)
CPT/HCPCS: 87624; 88175; G0145

== ENCOUNTER → 2023-12-15 | Outpatient (CLI) | payer BC, SELFPAY ==
--- NOTE | 2023-12-15 15:38 | RAD_ITS ---
STUDY: X-RAY - LUMBAR SPINE REASON FOR EXAM: Female, 48 years old. Lumbosacral pain, event with pop, R and gt; L, R psoas pain on resisted TECHNIQUE: 2 view(s) of the lumbar spine were obtained. COMPARISON: None FINDINGS: Normal lumbar lordosis. There is no substantial scoliosis. There is a normal alignment of the vertebrae. Normal vertebral bodies. There is mild spurring at L3-4. Normal disc space heights. There is no demonstrated fracture. The soft tissue structures are unremarkable. RAD/Lumbar Spine 2 or 3 Views IMPRESSION: Mild degenerative change. Electronically Signed: Kevin Masters MD at 10:01 EDT ,
== END | disposition home or self-care (01) ==
LOC: MTRAD 15:37
PROVIDERS: PCP Family Medicine; Referring Provider Family Medicine; Visit Provider Family Medicine
DX: S39.012A Strain of muscle, fascia and tendon of lower back, initial encounter (principal)
CPT/HCPCS: 72100

== ENCOUNTER 2024-01-19 16:30 | Outpatient (RCR) | payer BC, SELFPAY ==
--- NOTE | 2023-12-27 14:33 | HP.PTEVAL ---
Patient's Visit Information Visit Information Visit Information: PAVEL PENNY is a 48 year old F referred to Physical Therapy by Dr. Luis Miguel Miller MD with a diagnosis of LUMBOSACRAL STRAIN R> L. Date of Evaluation: 12/27/23 Physical Therapist: Chilo Boogie, PT, Cert MDT, OCS Visit Plan Frequency: 2x /Week Duration: 4 Weeks Plan: PT INTERVENTIONS INITIALLY BEN EX'S ,DLS ,POSTURAL EX'S ,MANUAL THERAPY AND MODALITIES NEEDED Subjective Subjective: This 48 y/o female presents to physical therapy with lumbar pain. Patient has had back pain ~ 1 year bending over then 8 weeks developed lumbar . Patient pain located R> L described as sharp pain. Patient symptoms have been intermittent . Seen Dr Miller ,did x-rays showed DDD. Aggravating twisting ,bending ,lifting and dull ache sitting/driving. Alleviating rest walking. Coughing./sneezing -. Bowel/bladder -. Denies paresthesia/tingling. Patient pain can affects sleeping. Patient has had treatment. Patient has no medication. Patient condition affects QOL and job demands .Patient gaols to decrease pain. 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 Bilateral Back: Pain Intensity (Out of 10): 5 Pain Intensity Range: 10 Comment: with activity Objective Objective: POSTURE: mild forward posture GAIT: reciprocal pattern NEURO: denies paresthesia/tingling ,reflexes L3-4,L4-5 ,L5-S1 3/3 SYMMETRIES: align FLEXABILITY: hamstrings min tight MMT: quads/hams4/5 ,hip flexion right 4-/5 ,left 4/5 ,ankle 5/5 LUMBAR ROM: flexion mod ,extension min loss ,side glides min loss Special Tests L/S Slump test left side: Negative L/S Slump test right side: Negative L/S Left Straight Leg Raise: Negative L/S Right Straight Leg Raise: Negative Lumbar Standing: Flexion - Mechanical Response: No effect Lumbar Standing: Flexion - Symptoms During Testing: Increases Lumbar Standing: Flexion - Symptoms After Testing: Worse Lumbar Standing: Extension - Mechanical Response: No effect Lumbar Standing: Extension - Symptoms During Testing: Increases Lumbar Standing: Extension - Symptoms After Testing: No worse Lumbar Standing: Right Side Glides - Mechanical Response: No effect Lumbar Standing: Right Side [place] - Symptoms During Testing: No effect Lumbar Standing: Right Side [place] - Symptoms After Testing: No effect Lumbar Standing: Left Side [place] - Mechanical Response: No effect Lumbar Standing: Left Side [place] - Symptoms During Testing: No effect Lumbar Standing: Left Side [place] - Symptoms After Testing: No effect Lumbar Lying: Flexion - Mechanical Response: No effect Lumbar Lying: Flexion - Symptoms During Testing: Increases Lumbar Lying: Flexion - Symptoms After Testing: Worse Lumbar Lying: Extension - Mechanical Response: Increases motion Lumbar Lying: Extension - Symptoms During Testing: Decreases Lumbar Lying: Extension - Symptoms After Testing: Better Balance/Special Test Scores Oswestry Low Back Score: 15 Goals Goal 1:: Patient to be I with HEP for lumbar Goal Time Frame: 4-6 Weeks Goal 2:: Patient betina improve lumbar ROM for function of recovery for lifting Goal Time Frame: 4-6 Weeks Goal 3:: Patient to improve back oswestry score by 5 points to improve QOL Goal Time Frame: 4-6 Weeks Goal 4:: Patient to demonstrate 70% improvement with less pain and improved function Goal Time Frame: 4-6 Weeks Goal 5:: Patient to return betina prior level with symptomatology with prohalysisx program. Goal Time Frame: 4-6 Weeks Rehabilitation Potential Physical Therapy Diagnosis: This patient has possible derangement lumbar asymmetrical due to pain worse with position and motion testing ,better with walking worse with bending thus benefit from skilled PT Rehabilitation Potential: Good Anticipated Interventions Patient/Client Instruction: Educate patient on: Condition and Plan of Care For the Purpose of:: To decrease pain, To increase ROM, To improve muscle performance and motor function, To improve ability to perform ADL's, To increase tolerance to activity/condition/position, To improve ability of physical actions for home/community/work/leisure, To improve health of tissue, To decrease soft tissue restriction, To improve endurance, To reduce risk of recurrence and To prevent re-injury Therapeutic Exercise to Include: Strength training, Body mechanics, Postural training, Flexibilty training, Dynamic Lumbar Stabilization and Ben Exercises For the Purpose of:: To decrease pain, To increase ROM, To improve muscle performance and motor function, To increase tolerance to activity/condition/position, To improve performance and independence with ADL's, To improve ability of physical actions for home/community/work/leisure, To improve health of tissue, To decrease soft tissue restriction, To increase flexibility/ROM, To improve balance, To reduce risk of recurrence and To prevent re-injury TENS: Yes IF ES: Yes Cryotherapy (ice pack, ice massage): Yes Thermo therapy (hot pack): Yes Ultrasound (thermal/non thermal): Yes For the Purpose of:: To decrease pain, To increase ROM, To improve nutrient delivery to tissue, To increase oxygenation perfusion, To improve health of tissue and To decrease soft tissue restriction Text: Thank you for the opportunity to evaluate your patient. For Medicare and Medicare HMO plans, please review the plan of care and approve it. It will need to be FAXED BACK to us at [phone] for Medicare purposes. For Medicare only, by signing this I certify the plan of care. Please let me know if there are questions or concerns regarding this plan of care. Physician Signature: Date:
--- NOTE | 2024-01-19 16:52 | HP.PTDCSUM ---
Discharge Summary D/C summary: It has been my pleasure to treat PAVEL PENNY referred by Dr. Luis Miguel Miller MD, with the diagnosis of LUMBOSACRAL STRAIN R> L for a total of 6 visit(s). Discharge Date: 01/19/24 Please see the following information for a summary of their discharge status. Subjective Subjective: A littie worse but overall better Pain Bilateral Back: Pain Intensity (Out of 10): 3 Overall Improvement % Improvement: 50 Objective Objective/Function: POSTURE: mild forward posture GAIT: reciprocal pattern NEURO: denies paresthesia/tingling ,reflexes L3-4,L4-5 ,L5-S1 3/3 SYMMETRIES: align FLEXABILITY: hamstrings min tight MMT: quads/hams4/5 ,hip flexion right 4-/5 ,left 4/5 ,ankle 5/5 LUMBAR ROM: flexion min ,extension WFL s ,side glides min loss Goals Goal 1:: Patient to be I with HEP for lumbar Goal Progress: Goal Met Goal 2:: Patient betina improve lumbar ROM for function of recovery for lifting Goal Progress: Goal Met Goal 3:: Patient to improve back oswestry score by 5 points to improve QOL Goal 4:: Patient to demonstrate 70% improvement with less pain and improved function Goal Progress: Goal Met Goal 5:: Patient to return betina prior level with symptomatology with prohalysisx program. Goal Progress: Goal Met Plan Plan: D/C TO HEP D/C Information Discharge Comments: HEP d/c sentence: If there are questions or concerns regarding this patient's physical therapy, please feel free to call me at [phone]. Thank you for the referral of this patient. Sincerely, Chilo Boogie, PT, Cert MDT, OCS Balance/Gait/Functional tests Balance/Special Test Scores Oswestry Low Back Score: 6 Improvement % Improvement: 50
== END 2024-01-19 19:00 | disposition home or self-care (01) ==
LOC: PT 16:30
PROVIDERS: PCP Family Medicine; Referring Provider Family Medicine; Visit Provider Family Medicine
DX: S39.012D Strain of muscle, fascia and tendon of lower back, subsequent encounter (principal)
CPT/HCPCS: 97110; 97162; 97530

== ENCOUNTER → 2024-05-03 | Outpatient (CLI) | payer OTHER, SELFPAY ==
--- NOTE | 2024-05-03 16:23 | RAD_ITS ---
INDICATION: CHEST PAIN EXAMINATION/TECHNIQUE: X-RAY - XR Chest 2 Views COMPARISON: July 10, 2008 FINDINGS: LINES/DEVICES: None. LUNGS: No consolidation, edema or effusion. No pneumothorax. MEDIASTINUM AND CARDIOVASCULAR STRUCTURES: Cardiac silhouette not enlarged. Central airways and mediastinal contour are unremarkable. BONES AND SOFT TISSUES: Unremarkable. RAD/Chest PA and Lateral IMPRESSION: No radiographic evidence of acute cardiopulmonary disease. Electronically Signed: Jeff Arizmendi DO at 16:38 EST ,
[2024-05-03 17:42] LABS: Absolute Lymphocyte Count 1.32 X10^3/uL (0.83-4.51); Basophil# 0.08 X10^3/uL; Basophil% 1.3 % (0-1); Eosinophils% 3.3 % (0-5); Hemoglobin 10.4 g/dL (12.0-15.0); Lymphocyte # 1.32 X10^3/ul (0.83-4.51); Lymphocyte % 21.5 % (19-41); Mean Corp Hgb Conc 30.6 g/dL (32-36); Mean Corpuscular Hgb 23.8 pg (27.0-32.0); Mean Corpuscular Volume 77.8 fL (81-99); Monocyte# 0.49 X10^3/uL; NRBC Flagged by Analyzer 0 % (0-5); Neutrophil # 4.03 X10^3/uL (2.7-7.7); Neutrophil % 65.6 % (47-70); Platelet Count 364 K/mm3 (150-450); RBC Distribution Width CV 14.8 % (11.6-14.6); RBC Distribution Width SD 41.8 fl (35.1-43.9); Red Blood Count 4.37 M/mm3 (4.2-5.4); White Blood Count 6.1 K/mm3 (4.4-11.0)
[2024-05-03 17:58] LABS: Anion Gap 6 (5-15); BUN 13 mg/dL (7-18); Calcium,Total 9.2 mg/dL (8.5-10.1); Chloride 106 mmol/L (98-107); Creatinine, Serum 0.87 mg/dL (0.55-1.02); EST Glomerular Filtration Rate 75 mL/min (>60); Est Glom Filt Rate - Afr Amer 91 mL/min (>60); Glucose 99 mg/dL (74-106); Potassium 3.5 mmol/L (3.5-5.1); Sodium Level 136 mmol/L (136-145)
[2024-05-03 18:00] LABS: D-Dimer Quantitative (DVT/PE) < 0.27 FEU/ug/m (0.27-0.49)
== END | disposition home or self-care (01) ==
PROVIDERS: PCP Family Medicine; Visit Provider Family Medicine
DX: R07.9 Chest pain, unspecified (principal)
CPT/HCPCS: 36415; 71046; 80048; 85025; 85379

== ENCOUNTER 2024-09-03 09:13 | Day surgery (SDC) | payer OTHER, SELFPAY ==
[2024-09-03] VITALS (7 sets, daily range): BP systolic 92–111; BP diastolic 68–80; PULSE 71–83; RESP 16; TEMP 36.2–36.6; O2SAT 98–100; BMI 29.1
--- NOTE | 2024-09-03 09:36 | PCM.PRE.AN2 ---
ASA Classification* ASA Classification ASA Classification: 2 Assessment & Plan Anesthesia* Anesthesia Assessment Anesthesia Assessment: Discussed sedation and/or anesthesia options, risks, benefits, and alternatives with patient/parents/legal guardian/POA. Questions invited. The patient/parents/legal guardian/POA seems to understand and agrees to proceed with anesthesia plan. Reviewed the physical assessment, medical history, allergy history and patient home medications list prior to surgery/procedure/anesthetic and documented any changes. Performed airway and anesthesia risk assessments. Anesthesia Type Anesthesia Type: MAC Anesthesia Focused Assessment* Airway Assessment Mouth opens: >3 cm Mallampati Score: II Focused Labs Anesthesia Preop lab: CBC WBC 5.7 K/mm3 (4.4-11.0) 05/29/24 07:42 05/29/24 RBC 4.69 M/mm3 (4.2-5.4) 05/29/24 07:42 05/29/24 Hgb 12.0 g/dL (12.0-15.0) 05/29/24 07:42 05/29/24 Hct 38.4 % (37-47) 05/29/24 07:42 05/29/24 Plt Count 335 K/mm3 (150-450) 05/29/24 07:42 05/29/24 CHEMISTRY Potassium 3.6 mmol/L (3.5-5.1) 05/29/24 07:42 05/29/24 Sodium 138 mmol/L (136-145) 05/29/24 07:42 05/29/24 Magnesium 2.0 mg/dL (1.6-2.6) 01/31/20 17:30 01/31/20 BUN 10 mg/dL (7-18) 05/29/24 07:42 05/29/24 Creatinine 0.86 mg/dL (0.55-1.02) 05/29/24 07:42 05/29/24 Glucose 93 mg/dL (74-106) 05/29/24 07:42 05/29/24 TSH 3.31 uIU/mL (0.358-3.74) 04/06/21 09:19 04/06/21 COAG Pre-Assessment Diagnosis/Proposed Procedure Planned Operative Procedure(s): COLONOSCOPY Anesthesia History Anesthesia History - independent distributor: Anesthesia History - independent distributor Hx Hospitalization No 08/30/24 09:59 Any Problems With Anesthesia No 08/30/24 09:59 Cholinesterase deficiency No 08/30/24 09:59 You/Your Family Experience No 08/30/24 09:59 fever (hyperthermia) with Relationship Recent Exposure to Contagious Disease Does patient have nerve No 08/30/24 09:59 stimulator Patient instructed to have device shut off --Does patient have Pacemaker or ICD? When Was Last Pacemaker Check QUESTION #4 FULL TEXT: You/Your Family Experience fever (hyperthermia) with Anesthesia Last Oral Intake Last Oral intake: Last Oral Intake NPO since Meds taken in AM with sips of water? Meds patient instructed to take am of surgery PONV PONV - independent distributor: PONV - independent distributor Female Yes 08/30/24 09:59 HX of Motion Sickness No 08/30/24 09:59 HX of N/V After Surgery No 08/30/24 09:59 Non-Smoker Yes 08/30/24 09:59 Duration of Surgery greater No 08/30/24 09:59 than 60 minutes Number of Risk Factors 2 08/30/24 09:59 PONV Score Moderate Risk 08/30/24 09:59 Height & Weight Height & Weight: Anesthesia: Height & Weight Height 5 ft 4 in 08/10/23 08:19 Respiratory Assessment Respiratory Assessment - independent distributor: Respiratory Tract Infection Hx - independent distributor Hx Respiratory Tract Infection No 08/30/24 09:59 STOP Sleep Apnea STOP Sleep Apnea - independent distributor: STOP Sleep Apnea - independent distributor Hx Hypertension No 08/30/24 09:59 Hx Sleep Apnea No 08/30/24 09:59 CPAP BIPAP Do you snore loudly (louder No 08/30/24 09:59 than talking or can be heard Do you often feel tired/ No 08/30/24 09:59 fatigued/ sleepy during daytime? Has anyone observed you stop No 08/30/24 09:59 breathing during sleep? STOP Results Negative 08/30/24 09:59 QUESTION #5 FULL TEXT : Do you snore loudly (louder than talking or can be heard through closed doors)? Tobacco Use History Tobacco Use History - independent distributor: Tobacco Use History - independent distributor Tobacco Use Smoking Status Former smoker 08/30/24 09:59 Hx Tobacco Use No 08/30/24 09:59 Years Smoking Packs Smoked per Day Smoking Cessation Date was No - quit smoking greater 08/30/24 09:59 within the last 15 years than 15 years ago Hx Smoking Cessation Date Hx Smoking Cessation Counseling Hematologic Medial History Hematologic Hx - independent distributor: Hematologic Medical Hx - hull and deck remover Hx of Blood Transfusion No 08/30/24 09:59 Hx of Transfusion in last 3 No 08/30/24 09:59 Months Date of Last Transfusion (if within last 3 months) Ever experience any problems No 08/30/24 09:59 with transfusion(s)? Specify any problems Hx of Preganancy in last 3 No 08/30/24 09:59 Months Nurse Filling Out Transfusion VLEHMAN 08/30/24 09:59 & Questions: Date: 08/30/24 08/30/24 09:59 Time: 10:08 08/30/24 09:59 Patient unable to answer at this time (ie. confused, unrespo /Reproduction History /Reproductive History - independent distributor: /Reproductive Hx- independent distributor Hx Now Gestational Age (in weeks): EDC: Hx Hx Para Hx Section SAB No 08/10/23 08:19 Active Medications Active Medications: Current Medications Generic Name Dose Route Start Last Admin Trade Name Freq PRN Reason Stop Dose Admin Lactated Ringer's 1,000 mls @ 15 mls/hr 09/03/24 09:30 IV .Q48H MIR PFSH Medical History Wears contact lenses Wears glasses Alcohol use Low iron Anemia Fatty liver Easy bruising Vertigo Dietary restriction Heartburn Gastric reflux Former smoker Asthma Genetic testing of female Abnormal pulmonary function test Anxiety Depression Home Medications ?Medication ?Instructions ?Recorded ?Last Taken ?Type bupropion HCl 300 mg 24 hr tablet, 300 mg PO DAILY 04/30/21 Unknown History extended release desvenlafaxine succinate 50 mg 50 mg PO Q24H 04/30/21 Unknown History tablet,extended release 24 hr dextroamphetamine-amphetamine 10 30 mg PO DAILY 08/10/23 Unknown History mg tablet (Adderall) vitamin Bcomplex no.10-folic acid 1 tab PO DAILY 08/10/23 Unknown History ER 400 mcg tablet,extended release naltrexone 50 mg tablet 25 - 50 mg PO DAILY 08/30/24 Unknown History Allergy/AdvReac Type Severity Reaction Status Date / Time acetaminophen (From Percocet) Allergy Angioedema Verified 09/03/24 09:29 latex Allergy Rash Verified 09/03/24 09:29 oxycodone (From Percocet) Allergy Angioedema Verified 09/03/24 09:29 Family History Mother Thyroid disorder Breast cancer in female Father Thyroid disorder Sister No problems noted. Surgical History History of tonsillectomy and adenoidectomy H/O section Social History number of children: 1 current occupational status: employed current occupation: [employer] 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
[2024-09-03] MEDS: Lactated Ringers 1,000 ML 15 ML IV (09:38)
[2024-09-03 09:56] LABS: Internal QC Validated? YES +Cl - CLEAR BKGD
[2024-09-03 09:57] LABS: Pregnancy, Urine Negative Negative
--- NOTE | 2024-09-03 10:36 | H&P.OPEN ---
[facility] - General General Date of Service: 09/03/24 HPI Narrative PAVEL PENNY, is a 48 F who presents for screening colonoscopy. Patient never had previous colonoscopy. Patient denies any family history of colon cancer. Patient has bowel movements daily denies any blood. Patient denies any chronic abdominal pain/nausea/vomiting. Patient states she was diagnosed with reflux early in life about 10 years old. Patient did stop drinking alcohol recently as she is sensitive and has very few symptoms and is not on any current medication. [facility], LAT[facility] Medical History Wears contact lenses Wears glasses Alcohol use Low iron Anemia Fatty liver Easy bruising Vertigo Dietary restriction Heartburn Gastric reflux Former smoker Asthma Genetic testing of female Abnormal pulmonary function test Anxiety Depression Home Medications ?Medication ?Instructions ?Recorded ?Last Taken ?Type bupropion HCl 300 mg 24 hr tablet, 300 mg PO DAILY 04/30/21 Unknown History extended release desvenlafaxine succinate 50 mg 50 mg PO Q24H 04/30/21 Unknown History tablet,extended release 24 hr dextroamphetamine-amphetamine 10 30 mg PO DAILY 08/10/23 Unknown History mg tablet (Adderall) vitamin Bcomplex no.10-folic acid 1 tab PO DAILY 08/10/23 Unknown History ER 400 mcg tablet,extended release naltrexone 50 mg tablet 25 - 50 mg PO DAILY 08/30/24 Unknown History Allergy/AdvReac Type Severity Reaction Status Date / Time acetaminophen (From Percocet) Allergy Angioedema Verified 09/03/24 09:29 latex Allergy Rash Verified 09/03/24 09:29 oxycodone (From Percocet) Allergy Angioedema Verified 09/03/24 09:29 Family History Mother Thyroid disorder Breast cancer in female Father Thyroid disorder Sister No problems noted. Surgical History History of tonsillectomy and adenoidectomy H/O section Social History number of children: 1 current occupational status: employed current occupation: [employer] 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 Past Medical/Surgical History Planned Operation Planned Operative Procedure(s): COLONOSCOPY Previous Hospitalizations/Surgeries HX Hospitalizations: No Any Problems With Anesthesia: No You/Your Family Experience Fever (Hyperthermia) With Anes: No Cholinesterase deficiency: No Cardiovascular Hx of Irregular Heartbeat and/or Afib: No Hx Heart Attack: No Hx Congestive Heart Failure: No Hx Hypertension: No Hx Pacemaker: No Respiratory Hx Chronic Obstructive Pulmonary Disease (COPD): No Hx Asthma: Yes Hx Emphysema: No Hx Sleep Apnea: No Hx Respiratory Tract Infection/Cold (presently): No Do You Snore Loudly (louder than talking or can be heard): No Do You Often Feel Tired/ Fatigued/ Sleepy Dring Daytime?: No Has Anyone Observed You Stop Breathing During Sleep?: No Result (for STOP score): Negative Hx Smoking: No Smoking Status: Former smoker Gastrointestinal Hx Ulcer: No Special diet followed at home: Yes Neurological Hx Seizures: No Hx Parkinson's Disease: No Hx Head/Neck Injury: No Hx Headaches: No Hx Back Injury/Pain: No Does patient have nerve stimulator: No Blood Disorder Hx Anemia: No Genitourinary Hx Dialysis: No Musculoskeletal Hx Arthritis: Yes Hx Rheumatoid Arthritis: No Endocrine Hx Diabetes: No Thyroid Disease: No Psycho/Social Hx Depression: Yes Hx Dementia: No Miscellaneous Hx Cancer: No Recent Exposure to Contagious Disease: No Allergies acetaminophen (From Percocet) Allergy (Verified 09/03/24 09:29) Angioedema latex Allergy (Verified 09/03/24 09:29) Rash oxycodone (From Percocet) Allergy (Verified 09/03/24 09:29) Angioedema Discharge Is Pt Admitted From a [facility], or a Halfway: No Who Could Help: After D/C, Where Do you Plan to Go: Return Home Vital Signs Vital Signs Vital Signs: 09/03/24 09:29 09/03/24 09:29 Temperature 97.8 F Temperature Source Temporal Pulse Rate 82 Respiratory Rate 16 Respiratory Pattern Normal Blood Pressure 111/80 Blood Pressure Mean 90 Blood Pressure Source Monitor Blood Pressure Position Semi-Fowlers Blood Pressure Location Right Arm Pulse Ox 98 Oxygen Delivery Method Room Air Weight Weight: 169 lb 12.095 oz Body Mass Index (BMI) 29.1 Physical Exam Const alert, oriented x3 and no apparent distress HEENT normocephalic and head/scalp atraumatic Resp normal respiratory effort Cardio regular rate GI soft to palpation and non-tender; Negative for non-distended Palpation: Negative for guarding Extremity no clubbing, cyanosis or edema Skin no rashes or lesions noted Neuro CN's II-XII intact bilaterally Psych mental status grossly normal Assessment & Plan Assessment/Plan (1) Screening for colon cancer: Surgery Risks - Colonoscopy I discussed with the patient the risks of the procedure: Yes Risks Include but are not Limited To: Risks include but are not limited to: Bleeding, perforation requiring further surgery, inability to complete colonoscopy requiring barium enema.
--- NOTE | 2024-09-03 12:28 | OP.COLON_ITS ---
Patient Name: Sumaya Baltazar Procedure Date: 09/03/2024 12:04 PM Date of : 1975 Age: 48 Procedure: Colonoscopy Indications: Screening for colorectal malignant neoplasm Providers: Carolina Monterroso MD Referring MD: Luis Miguel Miller Medicines: Monitored Anesthesia Care Patient Profile: This is a 48 year old female. Last Colonoscopy: none. The patient's first colonoscopy is today. Complications: No immediate complications. Procedure: Pre-Anesthesia Assessment: - Prior to the procedure, a History and Physical was performed, and patient medications and allergies were reviewed. The patient's tolerance of previous anesthesia was also reviewed. The risks and benefits of the procedure and the sedation options and risks were discussed with the patient. All questions were answered, and informed consent was obtained. Prior Anticoagulants: The patient has taken no anticoagulant or antiplatelet agents. ASA Grade Assessment: Per anesthesia. After reviewing the risks and benefits, the patient was deemed in satisfactory condition to undergo the procedure. After I obtained informed consent, the scope was passed under direct vision. Throughout the procedure, the patient's blood pressure, pulse, and oxygen saturations were monitored continuously. The Colonoscope was introduced through the anus and advanced to the cecum, identified by appendiceal orifice and ileocecal valve. The colonoscopy was performed without difficulty. The patient tolerated the procedure well. The quality of the bowel preparation was good. Scope In: 12:09:54 PM Scope Withdrawal Time 0 hours 8 minutes 34 seconds Scope Out: 12:23:42 PM Total Procedure Duration Time 0 hours 13 minutes 48 seconds Findings: The perianal and digital rectal examinations were normal. Non-bleeding internal hemorrhoids were found. The hemorrhoids were Grade I (internal hemorrhoids that do not prolapse). The entire examined colon appeared normal. Impression: - Non-bleeding internal hemorrhoids. - The entire examined colon is normal. - No specimens collected. Recommendation: - Discharge patient to home. - Resume previous diet. - Continue present medications. - Repeat colonoscopy in 10 years for screening purposes. Procedure Code(s): --- Professional --- G0121, PT, Colorectal cancer screening; colonoscopy on individual not meeting criteria for high risk Diagnosis Code(s): --- Professional --- Z12.11, Encounter for screening for malignant neoplasm of colon CPT copyright 2021 [employer]. All rights reserved. The codes documented in this report are preliminary and upon diagnostic radiologist review may be revised to meet current compliance requirements. MD Carolina Borjas MD 09/03/2024 12:27:25 PM This report has been signed electronically. Number of Addenda: 0 Note Initiated On: 09/03/2024 12:04 PM
--- NOTE | 2024-09-03 12:28 | OP.CCLET_ITS ---
09/03/2024 Luis Miguel Miller [address] [place] [address] Re : Colonoscopy procedure for Sumaya Baltazar Dear Dr. Miller This procedure was performed on Tuesday, September 03, 2024. My impressions and recommendations are as follows: Impressions : - Non-bleeding internal hemorrhoids. - The entire examined colon is normal. - No specimens collected. Recommendations : - Discharge patient to home. - Resume previous diet. - Continue present medications. - Repeat colonoscopy in 10 years for screening purposes. My findings are described in the full procedure note, which is enclosed. If I can be of further assistance, please feel free to contact me at Doctor phone number(s): , Work: . Sincerely, MD Carolina Borjas MD 09/03/2024 12:27:25 PM This report has been signed electronically.
--- NOTE | 2024-09-03 12:32 | PCM.POST.ANE ---
Anesthesia: Postop Eval I Current Vital Signs Temperature: 97.2 F Pulse Rate: 77 Blood Pressure: 100/71 Respiratory Rate: 16 Pulse Ox: 98 Oxygen Delivery Method: Room Air Assessment Airway patent: Yes Spontaneous unlabored respirations: Yes Mental status: Awake nausea: No Vomiting: No Anesthesia Complication: No Fluid Hydration Crystalloid volume administer (ml): 400 Total IV fluid infused: 400 Progress Note Anesthesia document: Postop Eval 1 completed: Yes
--- NOTE | 2024-09-03 13:04 | POSTOPAN2_ITS ---
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 Spontaneous unlabored Yes 09/03/24 12:33 [email or web address] respirations Mental status Awake 09/03/24 12:33 [email or web address] nausea No 09/03/24 12:33 [email or web address] Vomiting No 09/03/24 12:33 [email or web address] Anesthesia Postop Eval I: Fluid Summary Crystalloid volume administer 400 09/03/24 12:33 [email or web address] (ml) Colloids volume administered ( ml) Blood Product volume administered (ml) Total IV fluid infused 400 09/03/24 12:33 [email or web address] Anesthesia Postop Eval I: Summary Notes Anesthesia Complication No 09/03/24 12:33 [email or web address] Anesthesia Complication Comment: Post-operative progress note Anesthesia: Postop Eval II Evaluation Mental status: Awake Pain Level: 0 nausea: No Vomiting: No
--- NOTE | 2024-09-03 13:04 | PCM.POSTANE2 ---
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
== END 2024-09-03 13:11 | disposition home or self-care (01) ==
LOC: EN 09:13 → AC 09:27
PROVIDERS: Anesthesiology; PCP Family Medicine; Referring Provider Family Medicine; Visit Provider Surgery
PROC: 0DJD8ZZ Inspection of Lower Intestinal Tract, Via Natural or Artificial Opening Endoscopic (ICD-10-PCS; CPT 45378; principal; 2024-09-03 10:25)
DX: Z12.11 Encounter for screening for malignant neoplasm of colon (principal); K64.0 First degree hemorrhoids; Z87.891 Personal history of nicotine dependence; J45.909 Unspecified asthma, uncomplicated; K21.9 Gastro-esophageal reflux disease without esophagitis
CPT/HCPCS: 45378; 81025; J2405

== ENCOUNTER → 2024-10-30 | Outpatient (CLI) | payer OTHER, SELFPAY ==
[2024-10-30 12:19] LABS: Ferritin 34 ng/mL (22-378)
[2024-10-30 12:32] LABS: Iron 61 ug/dL (50-170); Iron Binding Capacity,Total 318 ug/dL (250-450); Iron Binding Capacity,Unsat 257 ug/dL (228-428)
== END | disposition home or self-care (01) ==
LOC: LABSPEC 10:49
PROVIDERS: PCP Family Medicine
DX: G25.81 Restless legs syndrome (principal)
CPT/HCPCS: 82728; 83540; 83550; 84439; 84443

== ENCOUNTER → 2025-03-07 | Outpatient (CLI) | payer OTHER, SELFPAY ==
--- NOTE | 2025-03-07 07:15 | BI_ITS ---
EXAM: SCRN MAMM (CAD)W/RATNA BILAT DATE: 03/07/2025 CLINICAL HISTORY: F, Age 49 y/o , SCREENING FOR BREAST CANCER Mother with breast cancer. TECHNIQUE: Procedure Code: [id number] Modality: MG Procedure: SCRN MAMM (CAD)W/RATNA BILAT COMPARISON: Prior exam(s) dated July 15, 2023.. FINDINGS: TISSUE DENSITY: There are scattered areas of fibroglandular density. Bilateral Breast Mammographic Findings: No significant masses, calcifications or other abnormalities are identified. Stable asymmetry of breast tissue were more breast tissue is seen in the upper-outer quadrant of the right breast. No suspicious masses, areas of developing architectural distortion, or suspicious calcifications. There has been no significant interval change. BI/SCRN MAMM (CAD)W/RATNA BILAT IMPRESSION: Stable bilateral screening mammogram. OVERALL FINAL ASSESSMENT BI-RADS 2: BENIGN RECOMMENDATION: Routine annual follow-up in 1 Year Additional Recommendation none A letter with findings and recommendations will be mailed to the patient. Reading Location: [facility]
--- OUTSIDE RECORDS SUMMARY | 2025-03-07 07:32 | XMS RPT_ITS | CCD ---
Author Organization [facility] Care Team Providers Care Box Puller Name Role Phone Marietta Miller MD Primary Care Provider [phone] MARIETTA MILLER Primary Care Unavailable MARIETTA MILLER Primary Care Unavailable Dr. Marietta Miller Primary Care Provider [phone] Dr. Marietta Miller Referring Provider Jeanette AUTO ACCESSORIES INSTALLER, AUTO ACCESSORIES INSTALLER-C Solange Attending Provider Marietta Miller MD Primary Care Provider [phone] Dr. Marietta Miller MD Primary Care Provider Assessment, Health Risk Attending Provider Unava elidia Miller MD, Dr. Bolanos Referring Provider Loc PATEL, Dr. Figueroa Attending Provider [phone] Dr. Carolina Monterroso MD Other Provider BARBIE MCCAIN PA-C Attending Unavailpam Miller MD, Dr. Bolanos Primary Care Provider [facility] Doctor, Out of Attending Provider Unavailab azucena Miller Marietta Primary Care Unavailable Town Doctor, Out of Attending Unavailable Roscoe Almanza Attending Unavailable Roscoe Almanza Referring Unavailable Miller, Marietta Primary Care Unavailable Assessment, Health Risk Attending Unavaila ble Miller, Marietta Primary Care Unavailable Jeanette AUTO ACCESSORIES INSTALLER, Solange Attending Unavailable Jeanette AUTO ACCESSORIES INSTALLER, Solange Referring Unavailable Miller, Marietta Primary Care Unavailable Miller, Marietta Primary Care Unavailable Carolina Monterroso Consulting Unavailable Carolian Monterroso Attending Unavailable Miller, Marietta Referring Unavailable Jeanette AUTO ACCESSORIES INSTALLER, Solange Attending Unavailable Miller, Marietta Referring Unavailable Miller, Marietta Primary Care Unavailable Carolina Monterroso Attending Unavailable Miller, Marietta Primary Care Unavailable Miller, Marietta Referring Unavailable Terrence Lynn Attending Unavailable Marietta Miller Primary Care Unavailable Allergies Allergy Classification Reported Allergen(s) Allergy Type Date of Onset Reaction(s) Facility (7 sources) Acetaminophen / oxyCODONE; Translations: [OXYCODONE-ACETAM INOPHEN] Drug Allergy 6 Itching [facility] (16 sources) Latex; Translations: [LATEX] Propensity to adverse reactions to drug 6 Itching [facility] (12 sources) Acetaminophen; Translations: [ACETAMINOPHEN] Drug Allergy 0 Angioedema [facility] (9 sources) oxyCODONE Drug Allergy 2 Angioedema [facility] (1 source) Acetaminophen Drug Allergy 5 [facility] (1 source) Latex Drug allergy (disorder) 5 [facility] (1 source) oxyCODONE Drug Allergy 5 [facility] Medications Current Medications Medication Drug Class(es) Dates Sig (Normalized) Sig (Original) 200 actuat albuterol 0.09 mg/actuat metered dose inhaler (6 sources) beta2-Adrenergic Agonist Start: 12-31-2009 take 1 puff(s) by inhalation once daily as needed for wheezing ALBUTEROL 90 MCG/ACTUATION AEROSOL INHALER Inhale one(1) - two(2) puffs four(4) times a day as needed for wheezing and shortness of breath. 0 12/31/2009 Active Comment on above: Inhale one(1) - two( 2) puffs four(4) times a day as needed for wheezing and shortness of breath. amphetamine aspartate 2.5 mg / amphetamine sulfate 2.5 mg / dextroamphetamine saccharate 2.5 mg / dextroamphetamine sulfate 2.5 mg oral tablet (20 sources) Central Nervous System Stimulant Start: 08-10-2023 take 1 tablet by mouth every four to six hours Dextroamphetamin e-Amphetamine (Adderall) 10 mg tablet Active 30 mg PO DAILY August 10, 2023 12:00am administer doses at least 4-6 hours apart Start: 01-31-2020 End: 04-30-2021 take 1 tablet by mouth once daily Dextroamphetamine-Amphetamine 10 MG tabl et Discontinued 10 mg PO DAILY January 31, 2020 12:00am April 30, 2021 12:23pm Start: 12-23-2017 End: 04-30-2021 take 1 tablet by mouth once daily Dextroamphetamine-Amphetamine 30 MG tabl et Discontinued 30 mg PO DAILY December 23, 2017 12:00am April 30, 2021 12:23pm Start: 09-13-2016 dextroamphetam ine-amphetamine (ADDERALL XR) 30 mg 24 hr capsule 09/13/2016 Active 24 hr buPROPion hydrochloride 300 mg extended release oral tablet (15 sources) Aminoketone Start: 06-21-2021 buPROPion XL ( WELLBUTRIN XL) 300 mg 24 hr tablet 06/21/2021 Active Start: 04-30-2021 take 1 tablet by cristel once daily Bupropion Hcl 300 mg tablet extended release 24 hr Active 300 mg PO DAILY April 30, 2021 1:00am 24 hr desvenlafaxine succinate 50 mg extended release oral tablet (15 sources) Serotonin and Norepinephrine Reuptake Inhibitor Start: 04-30-2021 take 1 tablet by mouth every twenty-four hours Desvenlafaxine Succinate 50 mg tablet extended release 24 hr Active 50 mg PO Q24H April 30, 2021 1:00am Ethinyl Estradiol / Levonorgestrel (6 sources) Progestin, Estrogen, Progestin-containin g Intrauterine Device Start: 09-19-2013 take 1 tablet by mouth once daily Levonorgestrel-Eth inyl Estrad (AVIANE) 0.1mg - 20mcg per tablet Indications: Routine gynecological examination , Depression , PMS (premenstrual syndrome) Take 1 tablet by mouth once daily. 3 Package 4 09/19/2013 Active Comment on above: Take 1 tablet by cristel th once daily. hydrOXYzine pamoate 25 mg oral capsule (6 sources) Antihistamine take 1 capsule by mouth every eight hours as needed hydrOXYzine pamoate (VISTARIL) 25 mg capsule Take 25 mg by mouth three times daily as needed. Active Comment on above: Take 25 mg by mouth three times daily as needed. multivitamins(DAILY MULTIVITAMIN TAB) (6 sources) Start: 06-05-2008 multivitamins(NAHUM Y MULTIVITAMIN TAB) Take one(1) tablet daily. 0 06/05/2008 Active Comment on above: Take one(1) tablet d aily. naltrexone hydrochloride 50 mg oral tablet (2 sources) Opioid Antagonist Start: 08-30-2024 take 25-50 mg by mouth once daily Naltrexone 50 mg tablet Active 25 - 50 mg PO DAILY August 30, 2024 12:00am pantoprazole 40 mg delayed release oral tablet (15 sources) Proton Pump Inhibitor Start: 06-21-[address] (PROTONIX) 40 mg tablet 06/21/2021 Active Start: 04-30-2021 End: 08-30-2024 Pantoprazole 40 mg tablet,de layed release (DR/EC) Discontinued NMA PO April 30, 2021 1:00am August 30, 2024 9:57am Start: 04-30-2021 Pantoprazole A ctive TAB PO April 30, 2021 1:00am riboflavin 100 mg oral tablet (6 sources) Start: 06-11-2021 VITAMIN B-2 10 0 mg tab TAKE 4 TABLETS EVERY DAY at supper time. 06/11/2021 Active Comment on above: TAKE 4 TABLETS EVERY DAY at supper time. Vitamin B Complex No.10-Fa (1 source) Start: 08-10-2023 Vitamin B Comp allison No.10-Fa Active TABLET PO August 10, 2023 12:00am Vitamin B Complex No.10-Fa 400 mcg tablet extended release (2 sources) Start: 08-10-2023 Vitamin B Comp allison No.10-Fa 400 mcg tablet extended release Active 1 {tbl} PO DAILY August 10, 2023 12:00am Completed/Discontinued Medications Medication Drug Class(es) Dates Sig (Normalized) Sig (Original) ARIPiprazole 5 mg oral tablet (9 sources) Atypical Antipsychotic Start: 02-29-2020 End: 04-30-2021 take 1 tablet by mouth once daily Aripiprazole 5 mg tablet Discontinued 5 mg PO DAILY February 29, 2020 1:00am April 30, 2021 12:22pm ascorbic acid 500 mg oral capsule (9 sources) Vitamin C Start: 12-26-2019 End: 04-30-2021 take 1 capsule by mouth once daily Ascorbic Acid (Vitamin C) 500 mg capsule Discontinued 500 mg PO DAILY December 26, 2019 12:00am April 30, 2021 12:22pm cholecalciferol 0.05 mg oral capsule (9 sources) Vitamin D Start: 12-26-2019 End: 04-30-2021 take 1 capsule by mouth once daily Cholecalciferol (Vitamin D3) 50 mcg (2,000 unit) capsule Discontinued 50 ug PO DAILY December 26, 2019 12:00am April 30, 2021 12:22pm famotidine 20 mg oral tablet (9 sources) Histamine-2 Receptor Antagonist Start: 01-31-2020 End: 04-30-2021 take 1 tablet by mouth once daily Famotidine 20 MG tablet Discontinued 20 mg PO DAILY January 31, 2020 12:00am April 30, 2021 12:23pm ferrous sulfate 325 mg oral tablet (18 sources) Start: 02-29-2020 End: 04-30-2021 take 1 tablet by mouth once daily Ferrous Sulfate 325 mg (65 mg iron) tablet Discontinued 325 mg PO DAILY February 29, 2020 1:00am April 30, 2021 12:23pm Start: 12-26-2019 End: 02-29-2020 take 300 mg by mouth once daily Ferrous Sulfate 300 mg (60 mg iron)/5 mL liquid Discontinued 300 mg PO DAILY December 26, 2019 12:00am February 29, 2020 11:46am lisdexamfetamine dimesylate 30 mg oral capsule (7 sources) Central Nervous System Stimulant Start: 04-29-2023 lisdexamfetamine (VYVANSE) 30 mg capsule take 1 capsule by mouth once bonnie ly lisdexamfetamine (VYVANSE) 40 mg capsule Take 40 mg by mouth once daily. Active Comment on above: Take 40 mg by mouth once daily. magnesium oxide 400 mg oral capsule (9 sources) Start: 0 End: 2 take 1 capsule by mouth once daily Magnesium Oxide 400 mg magnesium capsule Discontinued 400 mg PO DAILY December 26, 2019 12:00am April 30, 2021 12:23pm melatonin 3 mg oral capsule (9 sources) Start: 0 End: 2 take 1 capsule by mouth at bedtime as needed Melatonin 3 mg capsule Discontinued 3 mg PO BEDTIME as needed February 29, 2020 1:00am April 30, 2021 12:23pm ubidecarenone 75 mg oral capsule (9 sources) Start: 4 End: Coenzyme Q10 (Ultra Coq10) 75 mg capsule Discontinued 75 mg PO DAILY August 10, 2023 12:00am August 30, 2024 9:56am Start: 07-13-2021 coenzyme Q10 ( COENZYME Q-10) 100 mg cap capsule Take 100 mg by mouth once daily. 07/13/2021 Active Comment on above: Take 100 mg by mouth once daily. venlafaxine 50 mg oral tablet (20 sources) Serotonin and Norepinephrine Reuptake Inhibitor Start: 12-26-19 End: 02-29-20 take 3 tablets by mouth once daily Venlafaxine 50 mg tablet Discontinued 150 mg PO DAILY December 26, 2019 2:10pm February 29, 2020 11:47am Start: 12-26-2019 End: 02-29-2020 take 150 mg by mouth once daily Venlafaxine Discontinu ed 150 MG PO DAILY December 26, 2019 2:10pm February 29, 2020 11:47am Start: 12-23-2017 End: 12-26-2019 take 1 tablet by mouth once daily Venlafaxine 50 MG tablet Discontinued 50 mg PO DAILY December 23, 2017 12:00am December 26, 2019 2:11pm take 1 tablet by cristel three times daily venlafaxine (EFFEXOR) 25 mg tablet Take 25 mg by mouth three times daily. Active take 3 tablets by mo uth once daily venlafaxine 75 mg tablet Take 225 mg by mouth once daily. Active Comment on above: Take 225 mg by mouth once daily. Take 25 mg by mouth three times daily. vitamin b6 100 mg oral tablet (15 sources) Start: 12-26-2019 End: 04-30-2021 take 1 tablet by mouth once daily Pyridoxine (Vitamin B6) 100 mg tablet Discontinued 100 mg PO DAILY December 26, 2019 12:00am April 30, 2021 12:24pm Comment on above: Pyridoxine Hcl (Kailee min B6) Active 100 MG DAILY December 26, 2019 2:11pm Problems Active Problems Problem Classification Problem Date Documented Da te Episodic/Chronic Immunizations and screening for infectious disease (2 sources) Suspected disease caused by 2019-nCoV; Translations: [Suspected COVID-19 virus infection] Episodic Mood disorders (6 sources) Depressive disorder; Translations: [Depression] Onset: 07-04-2012 07-04-2012 Chronic Other ear and sense organ disorders (1 source) Otalgia, left ear; Translations: [Otalgia, unspecified] 05-21-2023 Episodic Other female genital disorders (6 sources) Premenstrual tension syndrome; Translations: [Premenstrual tension syndrome] Onset: 09-19-2013 09-19-2013 Chronic Other hereditary and degenerative nervous system conditions (1 source) Restless legs syndrome; Translations: [Restless legs syndrome] Onset: 12-26-2024 Chronic Other lower respiratory disease (1 source) Cough; Translations: [Acute cough] 11-06-2021 Episodic Other screening for suspected conditions (not mental disorders or infectious disease) (20 sources) Patient encounter status; Translations: [Encounter for other screening for genetic and chromosomal anomalies] Onset: 05-23-2006 Resolved: 08-12-2010 05-12-2021 Episodic Comment on above: Empower negative Other upper respiratory disease (1 source) Congestion of nasal sinus; Translations: [Nasal congestion] Episodic Other upper respiratory disease (1 source) Pain in throat; Translations: [Pain in throat] Episodic Other upper respiratory infections (1 source) Viral upper respiratory tract infection; Translations: [Acute upper respiratory infection, unspecified] Episodic Residual codes; unclassified (3 sources) Hypersomnia, unspecified; Translations: [Hypersomnia, unspecified] Onset: 08-31-2024 Chronic Residual codes; unclassified (9 sources) Family history of malignant neoplasm of breast in first degree relative; Translations: [Family history of malignant neoplasm of breast] 04-30-2021 Episodic Comment on above: Mom triple negative, lumpectomy, clear margins, neg lymph nodes. DIC G3. chemo, radiation. 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, unspecified] Onset: 08-31-2024 Viral infection (1 source) Viral disease; Translations: [Viral infection, unspecified] Episodic Past or Other Problems Problem Classification Problem Date Documented Date Episodic/Chronic Anal and rectal conditions (6 sources) Anal fissure; Translations: [Anal fissure, unspecified] Onset: 11-07-2013 11-07-2013 Episodic Nonspecific chest pain (1 source) Chest pain, unspecified; Translations: [Chest pain, unspecified] Onset: 09-17-2024 Episodic Other female genital disorders (6 sources) Cervical intraepithelial neoplasia grade 1; Translations: [Mild cervical dysplasia] Onset: 07-04-2012 07-04-2012 Episodic Results Test Name Value Interpretation Reference Range Facility Outside Sales Executive Office Visit Reporton 02-07-2025 Outside Sales Executive Office Visit Report [facility] [address], [address] [place] [address] OFFICE VISIT Date of Service: 02/07/25 MR#: [id number] Acct: [id number] Name: SUMAYA BALTAZAR Rep #: [id number] : 1975 Provider: HORACIO melgar Age/Sex: 49/F [place] [facility] [place]: Signed Intake Vital Signs 09/03/24 09:29 02/07/25 14:10 02/07/25 14:20 Height 5 ft 4 in 5 ft 4 in 5 ft 4 in Weight: 165 lb 3 oz BMI 28.3 BP 122/84 H Intake Visit Reasons: MENOPAUSE CONCERNS Crt Required: No Is patient in pain?: No Allergies acetaminophen (From Percocet) Allergy (Verified 02/07/25 14:21) Angioedema latex Allergy (Verified 02/07/25 14:21) Rash oxycodone (From Percocet) Allergy (Verified 02/07/25 14:21) Angioedema Medications ???Medication ???Instructions ???Recorded ???Confirmed ???Type bupropion HCl 300 mg 24 hr tablet, 300 mg PO DAILY 04/30/21 5 History extended release desvenlafaxine succinate 50 mg 50 mg PO Q24H 04/30/21 02/07/25 Hi story tablet,extended release 24 hr dextroamphetamine-amp hetamine 10 30 mg PO DAILY 08/10/23 02/07/25 H istory mg tablet (Adderall) naltrexone 50 mg tablet 25 - 50 mg PO DAILY 08/30/2402/07 History cholecalciferol (vitamin D3) 62.5 mcg PO 02/07/25 02/07/25 History mcg (2,500 unit) capsule etonogestrel 0.12 mg-ethinyl 1 vag ring vaginal Q4W #1 ea 02/0702/07/25 Rx estradiol 0.015 mg/24 hr vaginal ring (NuvaRing) fexofenadine 180 mg tablet 180 mg PO QDAY 02/07/25 02/07/25 H istory (Elysia Allergy) multivitamin 1 tab PO QAM 02/07/25 02/07/25 His tory propranolol 40 mg tablet 40 mg PO BID PRN anxiety 02/07/25 02/07/25 History Is last menstrual period known: Yes Last Menstrual Period: 01/22/25 Post menopausal: No Patient : No : No Control Method: vasectomy [facility] Medical History (Updated 02/07/25 @ 14:39 by Solange Reid AUTO ACCESSORIES INSTALLER, AUTO ACCESSORIES INSTALLER-C) Wears contact lenses Wears glasses Alcohol use Low iron Anemia Fatty liver Easy bruising Vertigo Dietary restriction Heartburn Gastric reflux Former smoker Asthma Genetic testing of female Abnormal pulmonary function test Anxiety Depression Surgical History History of tonsillectomy and adenoidectomy H/O section Family History Mother Thyroid disorder Breast cancer in female Father Thyroid disorder Sister No problems noted. 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 Notes that she is having issues with brain fog, irritability and daytime hot flashes. Her menses are regular each month. She states the irritability is biggest concern today. She is on pristiq and wellbutrin per PCP and he just gave her propranolol to use prn for mood and states has been helpful. States feels her worst at end of menses. . Spouse with vasectomy Pap 2023 Mammogram 06/2023 PCP Winnie Miller Female Reproductive History Last Menstrual Period: 01/22/25 History 2 Elective abortions Hx Para 1 Spontaneous abortions 1 Hx # Term Pregnancies 1 Ectopic pregnancies Hx # Pregnancies Multiple births # of living children 1 Past Pregnancies Del. Date Name GA/Weeks Outcome Route Bth Weight Gen Labor Lgth Anesthesia Del Locatn Provider FOB Unknown Pina 2005 ROS Const Constitutional: Denies fatigue, weight gain or weight loss Cardio Card: Denies chest pain Resp Resp: Denies cough or dyspnea on exertion GI GI: Denies abdominal pain, bloating, change in stool character, constipation or vomiting : Reports as per HPI; Denies difficulty voiding, pelvic pain, urinary frequency, urinary incontinence, urinary urgency, vaginal discharge or vaginal pruritus Psych Psych: Reports as per HPI Exam Const General: cooperative, healthy appearing, no acute distress and well developed Orientation: alert, oriented to person and oriented to place HENMT Head: normal to inspection Neck Neck: normal visual inspection Thyroid: thyroid normal Lymphatic: no lymphadenopathy noted Chest Breast inspection: normal inspection of t (more content not included)... Normal [facility] Ferritinon 10-30-2024 Ferritin [Mass/Vol] 34 ng/mL Normal 22-378 [facility] Comment on above: Performed By: #### L 506.0400, L503.6550, L503.6030, L501.9520 ####[facility] [id number] [place], [place], [id number] Iron measurement (mass/mass) Ordered By: OUT DOCTOR on 10-30-2024 Iron (Unsp spec) [Mass/Mass] 61 ug/dL 50-170 [facility] Iron+Iron Binding Capacityon 10-30-2024 Iron [Mass/Vol] 61 ug/dL Normal 50-170 [facility] Comment on above: Performed By: #### L 506.0400, L503.6550, L503.6030, L501.9520 ####[facility] [id number] [place], [place], [id number] IRON SATURATION 19.0 Normal 13-59 [facility] Comment on above: Performed By: #### L 506.0400, L503.6550, L503.6030, L501.9520 ####[facility] [id number] [place], [address] TIBC 318 ug/dL Normal 250-450 [facility] Comment on above: Performed By: #### L 506.0400, L503.6550, L503.6030, L501.9520 ####[facility] [address] [place], [address] UIBC 257 ug/dL Normal 228-428 [facility] Comment on above: Performed By: #### L 506.0400, L503.6550, L503.6030, L501.9520 ####[facility] [address] [place], [address] No Panel InformationOrdered By: OUT DOCTOR on 10-30-2024 Unsaturated Iron Binding Capacity 257 ug/dL 228-428 [facility] Serum or plasma ferritin karen surement (mass/volume)Ordered By: OUT DOCTOR on 10-30-2024 Ferritin [Mass/Vol] 34 ng/mL 22-378 [facility] Serum or plasma iron saturat ion measurement (mass fraction)Ordered By: OUT DOCTOR on 10-30-2024 Iron saturation [Mass fraction] 19.0 % 13-59 [facility] T4 Free Directon 10-30-2024 T4 FREE DIRECT 1.10 ng/dL Normal 0.76-1.46 [facility] Comment on above: Performed By: #### L 506.0400, L503.6550, L503.6030, L501.9520 ####[facility] [address] [place], [address] T4 freeOrdered By: OUT DOCTO R on 10-30-2024 Free T4 [Mass/Vol] 1.10 ng/dL 0.76-1.46 [facility] TSH DL <= 0.005 mIU/L QnOrde red By: OUT DOCTOR on 10-30-2024 TSH Qn 2.320 uIU/mL 0.300-4.200 [facility] Thyroid Stim Hormone (TSH)on 10-30-2024 TSH 2.320 uIU/mL Normal 0.300-4.200 [facility] Comment on above: Performed By: #### L 506.0400, L503.6550, L503.6030, L501.9520 ####[facility] [address] [place], [address] Colonoscopy Reporton 025 Colonoscopy Report [facility] Medical Records Department [address] [place] [address] Colonoscopy Report MR#: [id number] Acct: [id number] Name: SUMAYA BALTAZAR Rep #: [id number] : 1975 48 From: Carolina Monterroso MD PCP: Dr. Marietta Miller MD Status:[facility] Patient Name: Sumaya Baltazar Procedure Date: 09/03/2024 12:04 PM Date of : 1975 Age: 48 Procedure: Colonoscopy Indications: Screening for colorectal malignant neoplasm Providers: Carolina Monterroso MD Referring MD: Marietta Miller Medicines: Monitored Anesthesia Care Patient Profile: This is a 48 year old female. Last Colonoscopy: none. The patient's first colonoscopy is today. Complications: No immediate complications. Procedure: Pre-Anesthesia Assessment: - Prior to the procedure, a History and Physical was performed, and patient medications and allergies were reviewed. The patient's tolerance of previous anesthesia was also reviewed. The risks and benefits of the procedure and the sedation options and risks were discussed with the patient. All questions were answered, and informed consent was obtained. Prior Anticoagulants: The patient has taken no anticoagulant or antiplatelet agents. ASA Grade Assessment: Per anesthesia. After reviewing the risks and benefits, the patient was deemed in satisfactory condition to undergo the procedure. After I obtained informed consent, the scope was passed under direct vision. Throughout the procedure, the patient's blood pressure, pulse, and oxygen saturations were monitored continuously. The Colonoscope was introduced through the anus and advanced to the cecum, identified by appendiceal orifice and ileocecal valve. The colonoscopy was performed without difficulty. The patient tolerated the procedure well. The quality of the bowel preparation was good. Scope In: 12:09:54 PM Scope Withdrawal Time 0 hours 8 minutes 34 seconds Scope Out: 12:23:42 PM Total Procedure Duration Time 0 hours 13 minutes 48 seconds Findings: The perianal and digital rectal examinations were normal. Non-bleeding internal hemorrhoids were found. The hemorrhoids were Grade I (internal hemorrhoids that do not prolapse). The entire examined colon appeared normal. Impression: - Non-bleeding internal hemorrhoids. - The entire examined colon is normal. - No specimens collected. Recommendation: - Discharge patient to home. - Resume previous diet. - Continue present medications. - Repeat colonoscopy in 10 years for screening purposes. Procedure Code(s): --- Professional --- G0121, PT, Colorectal cancer screening; colonoscopy on individual not meeting criteria for high risk Diagnosis Code(s): --- Professional --- Z12.11, Encounter for screening for malignant neoplasm of colon CPT copyright 2021 [employer]. All rights reserved. The codes documented in this report are preliminary and upon chain machine operator review may be revised to meet current compliance requirements. MD Carolina Borjas MD 09/03/2024 12:27:25 PM This report has been signed electronically. Number of Addenda: 0 Note Initiated On: 09/03/2024 12:04 PM 09/03/24 1227 Date Carolina Monterroso MD Cosigner Signature: Date (if indicated) CC: Dr. Marietta Miller MD; Dr. Carolina Monterroso MD Date Dictated: 09/03/24 1204 Date Transcribed: Accounting Bookkeeper: TR Signed [facility] MR/POSTOP.[place] 09-03-2024 MR/POSTOP.[facility] Medical Records Department [address] [place] [address] Anesthesia Postop Eval I 09/03/24 1232 MR#: [id number] Acct: [id number] Name: SUMAYA BALTAZAR Rep #: [id number] : 1975 48 From: Jah Buckley QC LAB TECHNICIAN PCP: Dr. Marietta Miller MD Status:REG SD Y Race: C Location: [address] Anesthesia: Postop Eval I Current Vital Signs Temperature: 97.2 F Pulse Rate: 77 Blood Pressure: 100/71 Respiratory Rate: 16 Pulse Ox: 98 Oxygen Delivery Method: Room Air Assessment Airway patent: Yes Spontaneous unlabored respirations: Yes Mental status: Awake nausea: No Vomiting: No Anesthesia Complication: No Fluid Hydration Crystalloid volume administer (ml): 400 Total IV fluid infused: 400 Progress Note Anesthesia document: Postop Eval 1 completed: Yes 09/03/24 1233 Date Jah Buckley QC LAB TECHNICIAN Cosigner Signature: Date CC: Signed Normal [facility] MR/[id number] 09-03-2024 [facility] Medical Records Department [address] [place] [id number] Anesthesia Postop Eval II 09/03/24 1304 MR#: [id number] Acct: [id number] Name: SUMAYA BALTAZAR Rep #: [id number] : 1975 48 From: Tom Hernandez MD PCP: Dr. Marietta Miller MD Status:REG [facility] Y Race: C Location: [place] [address] Anesthesia Postop Eval I Sum Postop Eval Completion status Anesthesia document: Postop Eval 1 completed: Yes Anesthesia Postop Eval I Summary Anesthesia Postop Eval I Summary: Anesthesia Postop Eval I: Assessment Summary Airway patent Yes 09/03/24 12:33 QC LAB TECHNICIAN.SOBR Spontaneous unlabored Yes 09/03/24 12:33 QC LAB TECHNICIAN.SOBR respirations Mental status Awake 09/03/24 12:33 QC LAB TECHNICIAN.SOBR nausea No 09/03/24 12:33 QC LAB TECHNICIAN.SOBR Vomiting No 09/03/24 12:33 QC LAB TECHNICIAN.SOBR Anesthesia Postop Eval I: Fluid Summary Crystalloid volume administer 400 09/03/24 12:33 QC LAB TECHNICIAN.SOBR (ml) Colloids volume administered ( ml) Blood Product volume administered (ml) Total IV fluid infused 400 09/03/24 12:33 QC LAB TECHNICIAN.SOBR Anesthesia Postop Eval I: Summary Notes Anesthesia Complication No 09/03/24 12:33 QC LAB TECHNICIAN.SOBR Anesthesia Complication Comment: Post-operative progress note Anesthesia: Postop Eval II Evaluation Mental status: Awake Pain Level: 0 nausea: No Vomiting: No 09/03/24 1304 Date Tom White Signature: Date CC: Signed Normal [facility] ,Urineon 09-03-2024 Beta HCG ( test) Ql (U) Negative Normal [facility] Comment on above: Result Comment: Very dilute urine specimens, as indicated by a low specific gravity, may not contain ict sales representative levels of hCG. If is still suspected, a first morning urine specimen should be collected 48 hours later and tested. Performed By: #### L 400.7600 ####[facility] [address] [place], [place], [address] Urine testOrdered By: Tarun Álvarez on 09-03-2024 HCG ( test) Ql (U) Negative [facility] Comment on above: Very dilute urine sp ecimens, as indicated by a low specificgravity, may not contain ict sales representative levels of hCG. If is still suspected, a first morning urinespecimen should be collected 48 hours later and tested. Albumin to globulin ratioOrd ered By: HEALTH ASSESSMENT on 05-29-2024 Albumin/Globulin [Mass ratio] 1.0 {ratio} 0.9-2.4 [facility] Bilirubin, totalOrdered By: HEALTH ASSESSMENT on 05-29-2024 Bilirubin [Mass/Vol] 0.30 mg/dL 0.20-1.00 [facility] Comment on above: For patients on eltr ombopag therapy, use of Dimension [place] TBIL is not recommended. Blood urea nitrogen (BUN)/cr eatinine ratioOrdered By: HEALTH ASSESSMENT on 05-29-2024 Urea nitrogen/Creatinine [Mass ratio] 11.6 mg/mg 10-20 [facility] CBC-Complete Blood Cnt No Di ffon 05-29-2024 Erythrocyte distribution width (RBC) [Ratio] 18.2 % High 11.6-14.6 [facility] Comment on above: Performed By: #### L 501.9985, L500.4050, L500.4100, L100.0500 #### [facility] [address] [place], [address] Hematocrit (Bld) [Volume fraction] 38.4 % Normal 37-47 [facility] Comment on above: Performed By: #### L 501.9985, L500.4050, L500.4100, L100.0500 #### [facility] [address] [place], [address] Hemoglobin (Bld) [Mass/Vol] 12.0 g/dL Normal 12.0-15.0 [facility] Comment on above: Performed By: #### L 501.9985, L500.4050, L500.4100, L100.0500 #### [facility] [address] [place], [address] MCH (RBC) [Entitic mass] 25.6 pg Low 27.0-32.0 [facility] Comment on above: Performed By: #### L 501.9985, L500.4050, L500.4100, L100.0500 #### [facility] [address] [place], [address] MCHC (RBC) [Mass/Vol] 31.3 g/dL Low 32-36 [facility] Comment on above: Performed By: #### L 501.9985, L500.4050, L500.4100, L100.0500 #### [facility] [address] [place], [address] MCV (RBC) [Entitic vol] 81.9 fL Normal 81-99 [facility] Comment on above: Performed By: #### L 501.9985, L500.4050, L500.4100, L100.0500 #### [facility] [address] [place], [address] Platelet mean volume (Bld) [Entitic vol] 9.3 fL Normal 6.2-12.0 [facility] Comment on above: Performed By: #### L 501.9985, L500.4050, L500.4100, L100.0500 #### [facility] [address] [place], [address] Platelets (Bld) [#/Vol] 335 10*3/uL Normal 150-450 [facility] Comment on above: Performed By: #### L 501.9985, L500.4050, L500.4100, L100.0500 #### [facility] [address] [place], [address] RBC (Bld) [#/Vol] 4.69 10*6/uL Normal 4.2-5.4 [facility] Comment on above: Performed By: #### L 501.9985, L500.4050, L500.4100, L100.0500 #### [facility] [address] [place], [address] RDW SD 54.0 fl High 35.1-43.9 [facility] Comment on above: Performed By: #### L 501.9985, L500.4050, L500.4100, L100.0500 #### [facility] [address] [place], [address] WBC (Bld) [#/Vol] 5.7 10*3/uL Normal 4.4-11.0 [facility] Comment on above: Performed By: #### L 501.9985, L500.4050, L500.4100, L100.0500 #### [facility] [address] [place], [address] Carbon dioxide measurementOr dered By: HEALTH ASSESSMENT on 05-29-2024 CO2 [Moles/Vol] 25.0 mmol/L 21.0-32.0 [facility] Chloride measurementOrdered By: HEALTH ASSESSMENT on 05-29-2024 Chloride [Moles/Vol] 104 mmol/L 98-107 [facility] Comprehensive Metabolic Prof ilon 05-29-2024 Albumin [Mass/Vol] 3.7 g/dL Normal 3.2-5.0 [facility] Comment on above: Performed By: #### L 501.9985, L500.4050, L500.4100, L100.0500 #### [facility] [address] [place], [address] Albumin/Globulin [Mass ratio] 1.0 {ratio} Normal 0.9-2.4 [facility] Comment on above: Performed By: #### L 501.9985, L500.4050, L500.4100, L100.0500 #### [facility] [address] [place], [address] ALK P 91 U/L Normal 45-117 [facility] Comment on above: Performed By: #### L 501.9985, L500.4050, L500.4100, L100.0500 #### [facility] [address] [place], [address] ALT [Catalytic activity/Vol] 26 U/L Normal 13-56 [facility] Comment on above: Performed By: #### L 501.9985, L500.4050, L500.4100, L100.0500 #### [facility] [address] [place], [address] AST [Catalytic activity/Vol] 15 U/L Normal 15-37 [facility] Comment on above: Performed By: #### L 501.9985, L500.4050, L500.4100, L100.0500 #### [facility] [address] [place], [address] Bilirubin [Mass/Vol] 0.30 mg/dL Normal 0.20-1.00 [facility] Comment on above: Result Comment: For patients on eltrombopag therapy, use of Dimension [place] TBIL is not recommended. Performed By: #### L 501.9985, L500.4050, L500.4100, L100.0500 #### [facility] [address] [place], [address] BUN/CRE 11.6 RATIO Normal 10-20 [facility] Comment on above: Performed By: #### L 501.9985, L500.4050, L500.4100, L100.0500 #### [facility] [address] [place], [address] CA,Total 8.8 mg/dL Normal 8.5-10.1 [facility] Comment on above: Performed By: #### L 501.9985, L500.4050, L500.4100, L100.0500 #### [facility] [address] [place], [address] Chloride [Moles/Vol] 104 mmol/L Normal 98-107 [facility] Comment on above: Performed By: #### L 501.9985, L500.4050, L500.4100, L100.0500 #### [facility] [address] [place], [address] CO2 [Moles/Vol] 25.0 mmol/L Normal 21.0-32.0 [facility] Comment on above: Performed By: #### L 501.9985, L500.4050, L500.4100, L100.0500 #### [facility] [address] [place], [address] Creatinine [Mass/Vol] 0.86 mg/dL Normal 0.55-1.02 [facility] Comment on above: Result Comment: The validity of the calculated GFR GFRAA in patients over 70 years has not been determined. Clinical correlation is essential. Performed By: #### L 501.9985, L500.4050, L500.4100, L100.0500 #### [facility] [address] [place], [address] EST GFR - AA 91 mL/min Normal >60 [facility] Comment on above: Result Comment: Afri can Taiwanese GFR Calc Performed By: #### L 501.9985, L500.4050, L500.4100, L100.0500 #### [facility] [address] [place], [address] GAP 9 Normal 5-15 [facility] Comment on above: Performed By: #### L 501.9985, L500.4050, L500.4100, L100.0500 #### [facility] [address] [place], [address] GFR/1.73 sq M.predicted among non-blacks MDRD (S/P/Bld) [Vol rate/Area] 75 mL/min/{1.73_m2} Normal >60 [facility] Comment on above: Result Comment: Non- GFR Calc Performed By: #### L 501.9985, L500.4050, L500.4100, L100.0500 #### [facility] [address] [place], [address] Globulin (S) [Mass/Vol] 3.6 g/dL Normal 2.2-4.[address] [facility] Comment on above: Performed By: #### L 501.9985, L500.4050, L500.4100, L100.0500 #### [facility] [address] [place], [address] Glucose [Mass/Vol] 93 mg/dL Normal 74-106 [facility] Comment on above: Performed By: #### L 501.9985, L500.4050, L500.4100, L100.0500 #### [facility] [address] [place], [address] Potassium [Moles/Vol] 3.6 mmol/L Normal 3.5-5.1 [facility] Comment on above: Performed By: #### L 501.9985, L500.4050, L500.4100, L100.0500 #### [facility] [address] [place], [address] Sodium [Moles/Vol] 138 mmol/L Normal 136-145 [facility] Comment on above: Performed By: #### L 501.9985, L500.4050, L500.4100, L100.0500 #### [facility] [address] [place], [address] T PROT 7.3 g/dL Normal 6.4-8.2 [facility] Comment on above: Performed By: #### L 501.9985, L500.4050, L500.4100, L100.0500 #### [facility] [address] [place], [address] Urea nitrogen [Mass/Vol] 10 mg/dL Normal 7-18 [facility] Comment on above: Performed By: #### L 501.9985, L500.4050, L500.4100, L100.0500 #### [facility] [address] [place], [address] Erythrocyte distribution wid th ratioOrdered By: HEALTH ASSESSMENT on 05-29-2024 Erythrocyte distribution width (RBC) [Ratio] 18.2 % High 11.6-14.6 [facility] Erythrocyte distribution wid th standard deviationOrdered By: HEALTH ASSESSMENT on 05-29-2024 Erythrocyte distribution width (RBC) [Ratio] 54.0 fl High 35.1-43.9 [facility] Glomerular filtration rate ( GFR) estimationOrdered By: HEALTH ASSESSMENT on 05-29-2024 GFR/1.73 sq M.predicted among non-blacks MDRD (S/P/Bld) [Vol rate/Area] 75 mL/min/{1.73_m2} >60 [facility] Comment on above: Non- GFR Calc Glucose measurementOrdered B y: HEALTH ASSESSMENT on 05-29-2024 Glucose [Mass/Vol] 93 mg/dL 74-106 [facility] Hematocrit Auto (Bld) [Volum e fraction]Ordered By: HEALTH ASSESSMENT on 05-29-2024 Hematocrit (Bld) [Volume fraction] 38.4 % 37-47 [facility] Hemoglobin A1con 05-29-2024 HbA1c (Bld) [Mass fraction] 4.9 % Normal 3.8-5.6 [facility] Comment on above: Result Comment: Norm al < 5.7 % Prediabetic 5.7 - 6.4 % Diabetic >or= 6.5 % Please note range changes. Performed By: #### L 501.0449, L500.4050, L500.4100, L100.0500 #### [facility] [address] [place] [address]. [place], [place], [id number] Hemoglobin A1c percentageOrd ered By: HEALTH ASSESSMENT on 05-29-2024 HbA1c (Bld) [Mass fraction] 4.9 % 3.8-5.6 [facility] Comment on above: Normal < 5.7 % Predi abetic 5.7 - 6.4 % Diabetic >or= 6.5 % Please note range changes. Hemoglobin measurementOrdere d By: HEALTH ASSESSMENT on 05-29-2024 Hemoglobin (Bld) [Mass/Vol] 12.0 g/dL 12.0-15.0 [facility] High density lipoprotein (HD L) measurementOrdered By: HEALTH ASSESSMENT on 02-11-2025 Cholesterol in HDL [Mass/Vol] 60 mg/dL >40 [facility] Comment on above: The drugs N-Acetylcy steine and Metamizole may falsely depress this assay. Reference Range HDL <40 mg/dL Low HDL Cholesterol HDL >or= 60 mg/dL High HDL Cholesterol Laboratory - Chemistry and C hemistry - challengeOrdered By: HEALTH ASSESSMENT on 05-29-2024 AST [Catalytic activity/Vol] 15 U/L 15-37 [facility] Lipid Profileon 05-29-2024 Cholesterol [Mass/Vol] 205 mg/dL High 200 [facility] Comment on above: Result Comment: <200 mg/dL Desirable 200-240 mg/dL Borderline >240 mg/dL High Risk Performed By: #### L 501.9985, L500.4050, L500.4100, L100.0500 #### [facility] [address] [place], [address] Cholesterol in HDL [Mass/Vol] 60 mg/dL Normal [facility] Comment on above: Result Comment: The drugs N-Acetylcysteine and Metamizole may falsely depress this assay. Reference Range HDL <40 mg/dL Low HDL Cholesterol HDL >or= 60 mg/dL High HDL Cholesterol Performed By: #### L 501.9985, L500.4050, L500.4100, L100.0500 #### [facility] [address] [place], [address] Cholesterol in LDL [Mass/Vol] 122 mg/dL Normal 0-130 [facility] Comment on above: Performed By: #### L 501.9985, L500.4050, L500.4100, L100.0500 #### [facility] [address] [place], [address] Cholesterol in VLDL [Mass/Vol] 23 mg/dL Normal 5-40 [facility] Comment on above: Performed By: #### L 501.9985, L500.4050, L500.4100, L100.0500 #### [facility] [address] [place], [address] Triglyceride [Mass/Vol] 115 mg/dL Normal [facility] Comment on above: Result Comment: The drugs N-Acetylcysteine and Metamizole may falsely depress this assay. Serum Triglycerides Reference Interval Normal <150 mg/dL Borderline high 150 - 199 mg/dL High 200 - 499 mg/dL Very High > or = 500 mg/dL Performed By: #### L 501.9985, L500.4050, L500.4100, L100.0500 #### [facility] [address] [place], [place], [id number] Low density lipoprotein (LDL ) cholesterol measurementOrdered By: HEALTH ASSESSMENT on 05-29-2024 Cholesterol in LDL [Mass/Vol] 122 mg/dL 0-130 [facility] MCV (mean corpuscular volume ) determinationOrdered By: HEALTH ASSESSMENT on 05-29-2024 MCV (RBC) [Entitic vol] 81.9 fL 81-99 [facility] Mean corpuscular hemoglobin (MCH) determinationOrdered By: HEALTH ASSESSMENT on 05-29-2024 MCH (RBC) [Entitic mass] 25.6 pg Low 27.0-32.0 [facility] Mean corpuscular hemoglobin concentration (MCHC) determinationOrdered By: HEALTH ASSESSMENT on 05-29-2024 MCHC (RBC) [Mass/Vol] 31.3 g/dL Low 32-36 [facility] Mean platelet volume determi nationOrdered By: HEALTH ASSESSMENT on 05-29-2024 Platelet mean volume (Bld) [Entitic vol] 9.3 fL 6.2-12.0 [facility] Platelet countOrdered By: HE ALTH ASSESSMENT on 05-29-2024 Platelets (Bld) [#/Vol] 335 10*3/uL 150-450 [facility] Potassium measurementOrdered By: HEALTH ASSESSMENT on 05-29-2024 Potassium [Moles/Vol] 3.6 mmol/L 3.5-5.1 [facility] RBC Auto (Bld) [#/Vol]Ordere d By: HEALTH ASSESSMENT on 05-29-2024 RBC (Bld) [#/Vol] 4.69 10*6/uL 4.2-5.4 [facility] Serum anion gap measurementO rdered By: HEALTH ASSESSMENT on 05-29-2024 Anion gap [Moles/Vol] 9 mmol/L 5-15 [facility] Serum globulin measurementOr dered By: HEALTH ASSESSMENT on 05-29-2024 Globulin (S) [Mass/Vol] 3.6 g/dL 2.2-4.2 [facility] Serum or plasma alanine vicotria otransferase (ALT) measurementOrdered By: HEALTH ASSESSMENT on 05-29-2024 ALT [Catalytic activity/Vol] 26 U/L 13-56 [facility] Serum or plasma albumin andrew urement (mass/volume)Ordered By: HEALTH ASSESSMENT on 05-29-2024 Albumin [Mass/Vol] 3.7 g/dL 3.2-5.0 [facility] Serum or plasma alkaline coco sphatase measurementOrdered By: HEALTH ASSESSMENT on 05-29-2024 ALP [Catalytic activity/Vol] 91 U/L 45-117 [facility] Serum or plasma calcium andrew urement (mass/volume)Ordered By: HEALTH ASSESSMENT on 05-29-2024 Calcium [Mass/Vol] 8.8 mg/dL 8.5-10.1 [facility] Serum or plasma cholesterol measurement (mass/volume)Ordered By: HEALTH ASSESSMENT on 05-29-2024 Cholesterol [Mass/Vol] 205 mg/dL High <200 [facility] Comment on above: <200 mg/dL Desirable 200-240 mg/dL Borderline >240 mg/dL High Risk Serum or plasma creatinine m easurement (mass/volume)Ordered By: HEALTH ASSESSMENT on 05-29-2024 Creatinine [Mass/Vol] 0.86 mg/dL 0.55-1.02 [facility] Comment on above: The validity of the calculated GFR & GFRAA in patients over 70 years has not been determined. Clinical correlation is essential. Serum or plasma urea nitroge n measurement (mass/volume)Ordered By: HEALTH ASSESSMENT on 05-29-2024 Urea nitrogen [Mass/Vol] 10 mg/dL 7-18 [facility] Sodium levelOrdered By: HEAL TH ASSESSMENT on 05-29-2024 Sodium [Moles/Vol] 138 mmol/L 136-145 [facility] Total proteinOrdered By: A LTH ASSESSMENT on 05-29-2024 Protein [Mass/Vol] 7.3 g/dL 6.4-8.2 [facility] Triglycerides measurementOrd ered By: HEALTH ASSESSMENT on 05-29-2024 Triglyceride [Mass/Vol] 115 mg/dL <199 [facility] Comment on above: The drugs N-Acetylcy steine and Metamizole may falsely depress this assay.Serum Triglycerides Reference Interval Normal <150 mg/dL Borderline high 150 - 199 mg/dL High 200 - 499 mg/dL Very High > or = 500 mg/dL Very low density lipoprotein (VLDL) cholesterol measurementOrdered By: HEALTH ASSESSMENT on 05-29-2024 Very low density lipoprotein (VLDL) cholesterol measurement 23 mg/dL 5-40 [facility] White blood cell (WBC) count Ordered By: HEALTH ASSESSMENT on 05-29-2024 WBC (Bld) [#/Vol] 5.7 10*3/uL 4.4-11.0 [facility] Basic Metabolic Profile (BMP )on 05-03-2024 BUN/CRE 15.0 RATIO Normal 10-20 [facility] Comment on above: Performed By: #### L 100.0100, L300.8000, L500.2500 #### [facility] [address] [place], [address] CA,Total 9.2 mg/dL Normal 8.5-10.1 [facility] Comment on above: Performed By: #### L 100.0100, L300.8000, L500.2500 #### [facility] [address] [place], [address] Chloride [Moles/Vol] 106 mmol/L Normal 98-107 [facility] Comment on above: Performed By: #### L 100.0100, L300.8000, L500.2500 #### [facility] [address] [place], [address] CO2 [Moles/Vol] 24.0 mmol/L Normal 21.0-32.0 [facility] Comment on above: Performed By: #### L 100.0100, L300.8000, L500.2500 #### [facility] [address] [place], [address] Creatinine [Mass/Vol] 0.87 mg/dL Normal 0.55-1.02 [facility] Comment on above: Result Comment: The validity of the calculated GFR GFRAA in patients over 70 years has not been determined. Clinical correlation is essential. Performed By: #### L 100.0100, L300.8000, L500.2500 #### [facility] [address] [place], [address] EST GFR - AA 91 mL/min Normal >60 [facility] Comment on above: Result Comment: Afri can Taiwanese GFR Calc Performed By: #### L 100.0100, L300.8000, L500.2500 #### [facility] [address] [place], [address] GAP 6 Normal 5-15 [facility] Comment on above: Performed By: #### L 100.0100, L300.8000, L500.2500 #### [facility] [address] [place], [address] GFR/1.73 sq M.predicted among non-blacks MDRD (S/P/Bld) [Vol rate/Area] 75 mL/min/{1.73_m2} Normal >60 [facility] Comment on above: Result Comment: Non- GFR Calc Performed By: #### L 100.0100, L300.8000, L500.2500 #### [facility] [address] [place], [address] Glucose [Mass/Vol] 99 mg/dL Normal 74-106 [facility] Comment on above: Performed By: #### L 100.0100, L300.8000, L500.2500 #### [facility] [address] [place], [address] Potassium [Moles/Vol] 3.5 mmol/L Normal 3.5-5.1 [facility] Comment on above: Performed By: #### L 100.0100, L300.8000, L500.2500 #### [facility] [address] [place], [address] Sodium [Moles/Vol] 136 mmol/L Normal 136-145 [facility] Comment on above: Performed By: #### L 100.0100, L300.8000, L500.2500 #### [facility] [address] [place], [address] Urea nitrogen [Mass/Vol] 13 mg/dL Normal 7-18 [facility] Comment on above: Performed By: #### L 100.0100, L300.8000, L500.2500 #### [facility] [address] [place], [address] CBC W/Diff, Automatedon 04-18 Absolute Lymph 1.32 X10 3/uL Normal 0.83-4.51 [facility] Comment on above: Performed By: #### L 100.0100, L300.8000, L500.2500 #### [facility] [address] [place], [address] Absolute Neut 4.0 X10 3/uL Normal 2.0-7.7 [facility] Comment on above: Performed By: #### L 100.0100, L300.8000, L500.2500 #### [facility] [address] [place], [address] Basophils/100 WBC (Bld) 1.3 % High 0-1 [facility] Comment on above: Performed By: #### L 100.0100, L300.8000, L500.2500 #### [facility] [address] [place], [address] Eosinophils/100 WBC (Bld) 3.3 % Normal 0-5 [facility] Comment on above: Performed By: #### L 100.0100, L300.8000, L500.2500 #### [facility] [address] [place], [address] Erythrocyte distribution width (RBC) [Ratio] 14.8 % High 11.6-14.6 [facility] Comment on above: Performed By: #### L 100.0100, L300.8000, L500.2500 #### [facility] [address] [place], [address] Hematocrit (Bld) [Volume fraction] 34.0 % Low 37-47 [facility] Comment on above: Performed By: #### L 100.0100, L300.8000, L500.2500 #### [facility] [address] [place], [address] Hemoglobin (Bld) [Mass/Vol] 10.4 g/dL Low 12.0-15.0 [facility] Comment on above: Performed By: #### L 100.0100, L300.8000, L500.2500 #### [facility] [address] [place], [address] IG% 0.300 Normal 0.0-0.9 [facility] Comment on above: Result Comment: IG% - Immature Granulocytes (promyelocytes, myelocytes and metamyelocytes) > 1% indicates that a LEFT SHIFT is Present. Performed By: #### L 100.0100, L300.8000, L500.2500 #### [facility] [address] [place], [address] Lymphocytes/100 WBC (Bld) 21.5 % Normal 19-41 [facility] Comment on above: Performed By: #### L 100.0100, L300.8000, L500.2500 #### [facility] [address] [place], [address] MCH (RBC) [Entitic mass] 23.8 pg Low 27.0-32.0 [facility] Comment on above: Performed By: #### L 100.0100, L300.8000, L500.2500 #### [facility] [address] [place], [address] MCHC (RBC) [Mass/Vol] 30.6 g/dL Low 32-36 [facility] Comment on above: Performed By: #### L 100.0100, L300.8000, L500.2500 #### [facility] [address] [place], [address] MCV (RBC) [Entitic vol] 77.8 fL Low 81-[address] [facility] Comment on above: Performed By: #### L 100.0100, L300.8000, L500.2500 #### [facility] [address] [place], [address] Monocytes/100 WBC (Bld) 8.0 % Normal 0-[address] [facility] Comment on above: Performed By: #### L 100.0100, L300.8000, L500.2500 #### [facility] [address] [place], [address] Neutrophils/100 WBC (Bld) 65.6 % Normal 47-70 [facility] Comment on above: Performed By: #### L 100.0100, L300.8000, L500.2500 #### [facility] [address] [place], [address] Nucleated RBC (Bld) [#/Vol] 0 10*3/uL Normal 0-5 [facility] Comment on above: Performed By: #### L 100.0100, L300.8000, L500.2500 #### [facility] [address] [place], [address] Platelet mean volume (Bld) [Entitic vol] 9.0 fL Normal 6.2-12.0 [facility] Comment on above: Performed By: #### L 100.0100, L300.8000, L500.2500 #### [facility] [address] [place], [address] Platelets (Bld) [#/Vol] 364 10*3/uL Normal 150-450 [facility] Comment on above: Performed By: #### L 100.0100, L300.8000, L500.2500 #### [facility] [address] [place], [address] RBC (Bld) [#/Vol] 4.37 10*6/uL Normal 4.2-5.4 [facility] Comment on above: Performed By: #### L 100.0100, L300.8000, L500.2500 #### [facility] [address] [place], [address] RDW SD 41.8 fl Normal 35.1-43.9 [facility] Comment on above: Performed By: #### L 100.0100, L300.8000, L500.2500 #### [facility] [address] [place], [address] WBC (Bld) [#/Vol] 6.1 10*3/uL Normal 4.4-11.0 [facility] Comment on above: Performed By: #### L 100.0100, L300.8000, L500.2500 #### [facility] [address] [place], [address] Chest PA and Lateralon 05-03 Chest PA and Lateral [facility] Imaging Services [address] [place] [address] Chest PA and Lateral MR#: [id number] Acct: [id number] Name: SUMAYA BALTAZAR Rep #: [id number] : 1975 F 48 From: Jeff Arizmendi DO PCP: Dr. Marietta Miller MD Status: REG CLI Study: Chest PA and Lateral Date of Exam: 05/03/24 Exam# [id number] Ordering Dr: Terrence Lynn MD [id number] INDICATION: CHEST PAIN EXAMINATION/TECHNIQUE : X-RAY - XR Chest 2 Views COMPARISON: July 10, 2008 __ FINDINGS: LINES/DEVICES: None. LUNGS: No consolidation, edema or effusion. No pneumothorax. MEDIASTINUM AND CARDIOVASCULAR STRUCTURES: Cardiac silhouette not enlarged. Central airways and mediastinal contour are unremarkable. BONES AND SOFT TISSUES: Unremarkable. RAD/Chest PA and Lateral IMPRESSION: No radiographic evidence of acute cardiopulmonary disease. Electronically Signed: Jeff Arizmendi DO at 16:38 EST Reading Location ID and State: [facility] / [place] Tel [phone], Service support , CC: Dr. Marietta Miller MD; Dr. Terrence Lynn MD Accounting Bookkeeper: Signed Normal [facility] D-Dimer Quantitative (DVT/PE )on 05-03-2024 D-DIMER QUANT < 0.27 Low 0.27-0.49 [facility] Comment on above: Result Comment: NORM AL D-Dimer level (<0.50) indicates no DVT or PE. Performed By: #### L 100.0100, L300.8000, L500.2500 ####[facility] [id number] [place], [place], [address] Nicotine Screen Bloodon 12-0 COTININE BLOOD <1.0 Normal . [facility] Comment on above: Result Comment: This test was developed and its performance characteristics determined by [employer]. It has not been cleared or approved by the Food and Drug Administration. Cotinine levels greater than 20.0 are consistent with the use of tobacco or tobacco cessation products. Performed at: [address] [id number] Law Firm Administrator: Madai Mendez MD, Phone: [phone] Performed By: #### L 0349.3481 ####[facility] [id number] [place], [place], [address] NICOTINE BLOOD <1.0 Normal . [facility] Comment on above: Result Comment: This test was developed and its performance characteristics determined by [employer]. It has not been cleared or approved by the Food and Drug Administration. Nicotine levels greater than 2.0 are consistent with the use of tobacco or tobacco cessation products. Performed By: #### L 3600.3400 ####[facility] [id number] [place], [address] Cervical or vaginal specimen microscopic examination by liquid based cytology (reportOrdered By: Solange Reid on 08-10-2023 Cytology report Cyto stain.thin prep Doc (Cvx/Vag) Comment . [facility] Comment on above: Criteria not met, HP V Genotype not performed.Performed at: - [address] [id number] Director: Marianne Dickerson MD, Phone: [phone] at: = - [address] [id number] Director: Marianne Dickerson MD, Phone: [phone] Cervical or vagninal specime n microscopic examination by cytology stain (reported asOrdered By: Solange Reid on 08-10-2023 Cytology report Cyto stain Doc (Cvx/Vag) Comment . [facility] Comment on above: The Pap smear is a s creening test designed to aid in thedetection of premalignant and malignant conditions of theuterine cervix. It is not a diagnostic procedure andshould not be used as the sole means of detecting cervicalcancer. Both false-positive and false-negative reports dooccur. Detection in cervical specim en of any of human papilloma virus (HPV) 16, 18, 31, 33,Ordered By: Solange Reid on 08-10-2023 HPV 16+18+31+33+35+39+45+51+ 52+56+58+59+66+68 DNA Probe+sig amp Ql (Cvx) Negative Negative [facility] Comment on above: This nucleic acid am plification test detects fourteen high-risk HPV types (16,18,31,33,35,39,45,51,52,56,58,59,66,68)without differentiation. Laboratory - CytologyOrdered By: Solange Reid on 08-10-2023 Accounts Administrator Cyto stain Nom (Cvx/Vag) [ID] Comment . [facility] Comment on above: Madalyn Jerome, Cytot echnologist (ASCP) Laboratory - Miscellaneous t estsOrdered By: Solange Reid on 08-10-2023 Service comment (Unsp spec) [Interp] . . [facility] Thin prep Papanicolaou smear with manual screeningOrdered By: Solange Reid on 08-10-2023 Thin prep Papanicolaou smear with manual screening Comment . [facility] Comment on above: NEGATIVE FOR INTRAEP ITHELIAL LESION OR MALIGNANCY. This liquid based Th inPrep(R) pap test was screened withthe use of an image guided system. CNOVon 05-21-2023 CNOV Office Visit (WSTR ) SUMAYA BALTAZAR ([id number]) 1975 F Date Time Provider Department 05/21/23 12:00 PM [facility] During your visit today, we recorded the following information about you: Temperature Pulse Respiration Blood pressure 96.9 degrees 112/minute 16/minute 110/74 Weight 82.1 kg Gilbert Wall APRN.ACTIVITY DIRECTOR 05/21/2023 12:24 PM Signed Subjective HPI Nontoxic-appearing female presents urgent care chief plaint of left ear pain. Duration of symptoms 4 days. Associated symptoms left ear pain and slight cough. Presents today for evaluation. Most prominent symptom today is ear pain. Has not use any OTC medications. No trauma no loss hearing no otorrhea. Denies any fever body aches chills productive cough chest pain shortness of breath pleuritic pain hemoptysis nausea vomiting abdominal pain change in bowel or bladder habits. Past medical history prescription medication use and allergies reviewed. .Patient presents with: Ear Pain: left ear pressure and fullness x 4 days, cough PAST MEDICAL HISTORY Diagnosis Date Abnormal pap Abn. Pap smear (cervix) Dysthymic disorder Depression (non-psychotic) Generalized anxiety disorder anxiety/depression PAST SURGICAL HISTORY Procedure Laterality Date DELIVERY ONLY , low cervical COLPOSCOPY CERVIX UPPER/ADJACENT VAGINA 2000 mild dysplasia IUD INSERTION (BLOCK MECHANIC DEPT)_*FL 05/23/2006 MIRENA/removed TONSILLECTOMY AND ADENOIDECTOMY AGE 14/> ALLERGIES Latex, Acetaminophen, and Percocet [Oxycodone-Acetaminop hen] MEDICATIONS buPROPion XL (WELLBUTRIN XL) 300 mg 24 hr tablet desvenlafaxine ER (PRISTIQ) 50 mg [address] (PROTONIX) 40 mg tablet coenzyme Q10 (COENZYME Q-10) 100 mg cap capsule Take 100 mg by mouth once daily. VITAMIN B-2 100 mg tab TAKE 4 TABLETS EVERY DAY at supper time. pyridoxine, vitamin B6, (VITAMIN B6) 100 mg tablet Pyridoxine Hcl (Vitamin B6) Active 100 MG DAILY December 26, 2019 2:11pm multivitamins(DAILY MULTIVITAMIN TAB) Take one(1) tablet daily. lisdexamfetamine (VYVANSE) 30 mg capsule venlafaxine (EFFEXOR) 25 mg tablet Take 25 mg by mouth three times daily. (Patient not taking: Reported on 07/22/2021 ) dextroamphetamine-amp hetamine (ADDERALL XR) 30 mg 24 hr capsule (Patient not taking: Reported on 05/21/2023) lisdexamfetamine (VYVANSE) 40 mg capsule Take 40 mg by mouth once daily. hydrOXYzine pamoate (VISTARIL) 25 mg capsule Take 25 mg by mouth three times daily as needed. Levonorgestrel-Ethiny l Estrad (AVIANE) 0.1mg - 20mcg per tablet Take 1 tablet by mouth once daily. (Patient not taking: Reported on 06/06/2018 ) venlafaxine 75 mg tablet Take 225 mg by mouth once daily. (Patient not taking: Reported on 07/22/2021 ) ALBUTEROL 90 MCG/ACTUATION AEROSOL INHALER Inhale one(1) - two(2) puffs four(4) times a day as needed for wheezing and shortness of breath. (Patient not taking: SHAKE WELL BEFORE USING ) FAMILY HISTORY Problem Relation Age of Onset Stroke Paternal Grandfather other (fibromyalgia [Other]) Mother None Father Arthritis Mother Social History Tobacco Use Smoking status: Former Packs/day: 0.50 Years: 3.00 Additional pack years: 0.00 Total pack years: 1.50 Types: Cigarettes Smokeless tobacco: Never Tobacco comments: quit in 2001 Substance Use Topics Alcohol use: Yes Comment: occa Drug use: No BP 110/74 Pulse 112 Temp 36.1 ?C (96.9 ?F) Resp 16 Wt 82.1 kg (181 lb) LMP 04/25/2022 SpO2 97% BMI 30.83 kg/m? Hr 96 Review of Systems Constitutional: Negative for chills, fever and malaise/fatigue. HENT: Positive for ear pain. Negative for congestion, ear discharge, sinus pain and sore throat. Eyes: Negative for blurred vision, pain, discharge and redness. Respiratory: Positive for cough. Negative for hemoptysis, sputum production, shortness of breath, wheezing and stridor. Cardiovascular: Negative for chest pain. Gastrointestinal: Negative for abdominal pain, diarrhea, nausea and vomiting. Musculoskeletal: Negative for myalgias. Skin: Negative for itching and rash. Neurological: Negative for dizziness and headaches. Objective Physical Exam Constitutional: General: She is not in acute distress. Appearance: She is not diaphoretic. HENT: Head: Normocephalic. Jaw: No trismus, tenderness, swelling or pain on movement. Right Ear: Tympanic membrane, ear canal and external ear normal. Left Ear: Tympanic membrane, ear canal and external ear normal. Nose: Nose normal. Mouth/Throat: Mouth: Mucous membranes are moist. Pharynx: Oropharynx is clear. Uvula midline. No pharyngeal swelling, oropharyngeal exudate, posterior oropharyngeal erythema or uvula swelling. Eyes: Conjunctiva/sclera: Conjunctivae normal. Pupils: Pupils are equal, round, and reactive to light. Cardiovascular: Rate and Rhy (more content not included)... Normal [facility] Absolute lymphocyte countOrd ered By: Marietta Miller on 01-28-2023 Lymphocytes Auto (Unsp spec) [#/Vol] 1.45 10*3/uL 0.83-4.51 [facility] Basophil percentageOrdered B y: Marietta Miller on 01-28-2023 Basophils/100 WBC (Bld) 0.8 % 0-1 [facility] Bilirubin [Mass/Vol] 0.30 mg/dL 0.20-1.00 [facility] Comment on above: For patients on eltr ombopag therapy, use of Dimension [place] TBIL is not recommended. Chloride [Moles/Vol] 107 mmol/L 98-107 [facility] Eosinophils/100 WBC (Bld) 1.8 % 0-5 [facility] Glucose [Mass/Vol] 90 mg/dL 74-106 [facility] Neutrophils (Bld) [#/Vol] 6.0 10*3/uL 2.0-7.7 [facility] Neutrophils/100 WBC (Bld) 72.5 % 47-70 [facility] Potassium [Moles/Vol] 3.5 mmol/L 3.5-5.1 [facility] Protein [Mass/Vol] 7.4 g/dL 6.4-8.2 [facility] Sodium [Moles/Vol] 140 mmol/L 136-145 [facility] WBC (Bld) [#/Vol] 8.3 10*3/uL 4.4-11.0 [facility] Blood erythrocytes count (nu mber/volume)Ordered By: Marietta Miller on 01-28-2023 RBC (Bld) [#/Vol] 4.12 10*6/uL 4.2-5.4 [facility] Blood hemoglobin measurement (mass/volume)Ordered By: Marietta Miller on 01-28-2023 Hemoglobin (Bld) [Mass/Vol] 11.0 g/dL 12.0-15.0 [facility] Blood lymphocytes/100 leukoc ytesOrdered By: Marietta Miller on 01-28-2023 Lymphocytes/100 WBC (Bld) 17.4 % 19-41 [facility] Blood monocytes/100 leukocyt esOrdered By: Marietta Miller on 01-28-2023 Monocytes/100 WBC (Bld) 7.1 % 0-10 [facility] Blood platelet mean volumeOr dered By: Marietta Miller on 01-28-2023 Platelet mean volume (Bld) [Entitic vol] 9.5 fL 6.2-12.0 [facility] Determination of erythrocyte mean corpuscular volume (MCV)Ordered By: Marietta Miller on 01-28-2023 MCV (RBC) [Entitic vol] 84.7 fL 81-99 [facility] Hematocrit Auto (Bld) [Volum e fraction]Ordered By: Marietta Miller on 01-28-2023 Hematocrit (Bld) [Volume fraction] 34.9 % 37-47 [facility] - Chemistry and C hemistry - challengeOrdered By: Marietta Miller on 01-28-2023 ALP [Catalytic activity/Vol] 109 U/L 45-117 [facility] ALT [Catalytic activity/Vol] 21 U/L 13-56 [facility] Amylase [Catalytic activity/Vol] 26 U/L 5-55 [facility] CO2 [Moles/Vol] 24.0 mmol/L 21.0-32.0 [facility] Globulin (S) [Mass/Vol] 3.8 g/dL 2.2-4.2 [facility] Urea nitrogen/Creatinine [Mass ratio] 12.4 mg/mg 10-20 [facility] - Hematology and Cell countsOrdered By: Marietta Miller on 01-28-2023 Erythrocyte distribution width (RBC) [Entitic vol] 44.9 fL 35.1-43.9 [facility] Erythrocyte distribution width (RBC) [Ratio] 14.6 % 11.6-14.6 [facility] Immature granulocytes/100 WBC (Bld) 0.400 % 0.0-0.9 [facility] Comment on above: IG% - Immature Granu locytes (promyelocytes, myelocytes and metamyelocytes) > 1% indicates that a LEFT SHIFT is Present. MCH (RBC) [Entitic mass] 26.7 pg 27.0-32.0 [facility] Nucleated RBC/100 WBC (Bld) [Ratio] 0 % 0-5 [facility] MCHC Auto (RBC) [Mass/Vol]Or dered By: Marietta Miller on 01-28-2023 MCHC (RBC) [Mass/Vol] 31.5 g/dL 32-36 [facility] No Panel InformationOrdered By: Marietta Miller on 01-28-2023 Estimated GFR (MDRD) Amer 98 mL/min >60 [facility] Comment on above: GFR Calc Estimated GFR (MDRD) Non-Af Amer 81 mL/min >60 [facility] Comment on above: Non- GFR Calc Platelets bldOrdered By: Loretta Miller on 01-28-2023 Platelets (Bld) [#/Vol] 286 10*3/uL 150-450 [facility] Serum or plasma C reactive p rotein measurement (mass/volume)Ordered By: Marietta Miller on 01-28-2023 CRP [Mass/Vol] 16.00 mg/L 0.0-3.0 [facility] Comment on above: C-Reactive Protein ( CRP) provides useful information for thediagnosis, therapy and monitoring of inflammatory processesand associated diseases. For the evaluation of Relative Riskfor Cardiovascular Disease, a High Sensitivity CRP (HSCRP)should be ordered. Serum or plasma albumin andrew urement (mass/volume)Ordered By: Marietta Miller on 01-28-2023 Albumin [Mass/Vol] 3.6 g/dL 3.2-5.0 [facility] Serum or plasma albumin/glob ulin mass ratioOrdered By: Marietta Miller on 01-28-2023 Albumin/Globulin [Mass ratio] 0.9 {ratio} 0.9-2.4 [facility] Serum or plasma calcium andrew urement (mass/volume)Ordered By: Marietta Miller on 01-28-2023 Calcium [Mass/Vol] 8.6 mg/dL 8.5-10.1 [facility] Serum or plasma creatinine m easurement (mass/volume)Ordered By: Marietta Miller on 01-28-2023 Creatinine [Mass/Vol] 0.81 mg/dL 0.55-1.02 [facility] Comment on above: The validity of the calculated GFR & GFRAA in patients over 70 years has not been determined. Clinical correlation is essential. Serum or plasma urea nitroge n measurement (mass/volume)Ordered By: Marietta Miller on 01-28-2023 Urea nitrogen [Mass/Vol] 10 mg/dL 7-18 [facility] Thin prep Papanicolaou smear with manual screeningOrdered By: Marietta Miller on 01-28-2023 Thin prep Papanicolaou smear with manual screening 9 U/L 15-37 [facility] Thin prep Papanicolaou smear with manual screening 9 5-15 [facility] CNOVon 06-04-2022 CNOV Office Visit (UCWSTR ) SUMAYA BALTAZAR ([id number]) 1975 F Date Time Provider Department 06/04/22 5:45 PM [facility] During your visit today, we recorded the following information about you: Temperature Pulse Respiration Blood pressure 98.5 degrees 106/minute 18/minute 130/76 Weight Last Period 84.4 kg 04/25/22 Darline Mendez APRNEmyACTIVITY DIRECTOR 06/04/2022 6:15 PM Signed CC: Patient presents with: Pain, Throat: Pt reported + strep exposure, throat pain, onset AM. HPI: Sumaya Baltazar is a 46 year old female who presents to the office with above complaint Symptoms began yesterday and include: Fever (?100.4F): No or Chills: Yes Cough: Yes Shortness of breath: Yes Fatigue: Yes Muscle aches: No Headache: Yes New loss of smell or taste: No Sore throat: Yes Nasal congestion: Yes or Rhinorrhea: Yes Nausea: No or Vomiting: No Diarrhea: No Other Associated symptoms: ear pressure . OTC meds/remedies that patient has tried: OTC cold medicine. Exposures: Sick contacts? Yes daughter had strep Family or close contacts with confirmed/probable COVID-19 in last 14 days? No COVID vaccine: yes The ROS is otherwise negative. The patient's pmh, medications, allergies, and past visits are reviewed. PHYSICAL EXAM: BP 130/76 Pulse 106 Temp 36.9 ?C (98.5 ?F) (Tympanic) Resp 18 Wt 84.4 kg (186 lb) LMP 04/25/2022 SpO2 99% BMI 31.68 kg/m? General appearance: tired/ill appearing, alert, cooperative, pleasant, in no acute distress Head: Normocephalic Eyes: conjunctiva pink and moist, no icterus, sclera white, non-injected Ears: Right ear: External ear/canal- Normal, TM - clear with good landmarks. Left ear: External ear/canal- Normal, TM - clear with good landmarks Nose: clear. Oropharynx:no erythema, evidence of previous tonsilectomy Neck:supple and positive findings: few small anterior cervical nodes Heart: Negative. RRR without obvious murmur, gallop, or rubs. No ectopy. Lungs: clear to auscultation, without rales or wheeze, good air exchange ASSESSMENT/PLAN: 1. Viral URI with cough - ICD9: 465.9, ICD10: J06.9 (primary diagnosis) - Meets symptom-based criteria for testing and is high risk. - COVID swab collected at time of office visit - Instructed to isolate pending test results - Discussed symptom monitoring and supportive care - Red flag symptoms requiring follow up discussed - COVID WITH FLUA+B, ROUTINE 2. Throat pain - ICD9: 784.1, ICD10: R07.0 As above - STREP A MOLECULAR (POC) 3. Streptococcus exposure - ICD9: V01.89, ICD10: Z20.818 As above - STREP A MOLECULAR (POC) Prescription instructions reviewed with patient as applicable. Potential red flag symptoms discussed with the patient. Reviewed appropriate action plan to take if red flag symptoms occur. Patient agreeable to treatment plan. Darline Mendez APRN.ACTIVITY DIRECTOR Referring Provider: SELF [200] Allergies As of Date: 06/04/2022 Noted Allergy Reaction LATEX 10/18/2005 9 - Itching ACETAMINOPHEN 12/26/2019 18 - Angioedema PERCOCET (OXYCODONE-ACETAMINOP HEN)11/11/2005 9 - Itching Date Reviewed: 06/04/2022 Reviewed by: Deandra Brown LPN - Fully Assessed Reason for Visit: Pain, Throat [856] Cmt: Pt reported + strep exposure, throat pain, onset AM. Primary Visit Diagnosis:Viral URI with cough [J06.9] Other Visit Diagnoses:Throat pain [R07.0] Streptococcus exposure [Z20.818] Order(s):STREP A MOLECULAR (POC) [2844217] Order #: [id number]. #:[id number] COVID WITH FLUA+B, ROUTINE [SQCOVFLU] Order #: [id number] FUTURE COVID WITH FLUA+B, ROUTINE [SQCOVFLU] Order #: [id number]. #:[id number] Prescriptions as of 06/05/2022 - buPROPion XL (WELLBUTRIN XL) 300 mg 24 hr tablet - desvenlafaxine ER (PRISTIQ) 50 mg 24 hr tablet - pantoprazole DR (PROTONIX) 40 mg tablet - coenzyme Q10 (COENZYME Q-10) 100 mg cap capsule Take 100 mg by mouth once daily. - VITAMIN B-2 100 mg tab TAKE 4 TABLETS EVERY DAY at supper time. - pyridoxine, vitamin B6, (VITAMIN B6) 100 mg tablet Pyridoxine Hcl (Vitamin B6) Active 100 MG DAILY December 26, 2019 2:11pm - venlafaxine (EFFEXOR) 25 mg tablet Take 25 mg by mouth three times daily. - dextroamphetamine-amp hetamine (ADDERALL XR) 30 mg 24 hr capsule - lisdexamfetamine (VYVANSE) 40 mg capsule Take 40 mg by mouth once daily. - hydrOXYzine pamoate (VISTARIL) 25 mg capsule Take 25 mg by mouth three times daily as needed. - Levonorgestrel-Ethiny l Estrad (AVIANE) 0.1mg - 20mcg per tablet Take 1 tablet by mouth once daily. - venlafaxine 75 mg tablet Take 225 mg by mouth once daily. - ALBUTEROL 90 MCG/ACTUATION AEROSOL INHALER Inhale one(1) - two(2) puffs four(4) times a day as needed for wheezing and shortness of breath. - multivitamins(DAILY MULTIVITAMIN TAB) Take one(1) tablet daily. Problem List As Of Date 06/04/2022 Noted Resolved Insertion of I (more content not included)... Normal [facility] FLUABV + SARS-CoV-2 Pnl Resp MARILYN+prbon 06-04-2022 Influenza virus A and B RNA and SARS-CoV-2 (COVID-19) N gene panel MARILYN+probe (Resp) COVID 19 RESULT: Not detected The method used is RT-PCR or an equivalent NAAT method. Reference Range (the expected result in uninfected individuals): Not detected INFLUENZA A PCR: Not detected INFLUENZA B PCR: Not detected Normal [facility] Comment on above: Performed By: #### 9 [id number] #### [facility] CLIA [id number] [address] [place] [address] [place] [address] [place] ALEJANDRO STREP A MOLECULAR (POC)on Procedural Control Valid [facility] Strep A (POCT) Negative Negative [facility] No Panel Informationon 02-09 Anti-Nuclear Antibody Screen Negative Negative [facility] Work Phone: Comment on above: Performed at: [facility] [address] [id number] Director: Jovanni Jiang PhD, Phone: [phone] Serum or plasma C reactive p rotein measurement (mass/volume)on 02-09-2022 CRP [Mass/Vol] 12.00 mg/L 0.0-3.0 [facility] Work Phone: Comment on above: C-Reactive Protein ( CRP) provides useful information for thediagnosis, therapy and monitoring of inflammatory processesand associated diseases. For the evaluation of Relative Riskfor Cardiovascular Disease, a High Sensitivity CRP (HSCRP)should be ordered. Serum or plasma actin IgG an tibody assay (units/volume)on 02-09-2022 Actin IgG Qn 5 Units 0-19 [facility] Work Phone: Comment on above: Negative 0 - 19 Weak positive 20 - 30 Moderate to strong positive >30 Actin Antibodies are found in 52-85% of patients with autoimmune hepatitis or chronic active hepatitis and in 22% of patients with primary biliary cirrhosis.Performed at: [facility] [address] [id number] Director: Jovanni Jiang PhD, Phone: [phone] XR Chest PA and Lateralon IMPRESSION: No acute radiographic abnormality. Accounting Bookkeeper: ROBERTO Transcribe Date/Time: Nov 06 2021 4:55P Dictated by : JORGE MUELLER MD This examination was interpreted and the report reviewed and electronically signed by: JORGE MUELLER MD on Nov 06 2021 4:55PM EST ZZZ_DO_NOT_U _DIVISION OF RADIOLOGY * * *Final Report* * * DATE OF EXAM: Nov 06 2021 4:52PM WOX 5291 - XR CHEST 2V FRONTAL/LAT / PROCEDURE REASON: Acute cough * * * * Physician Interpretation * * * * EXAMINATION: CHEST RADIOGRAPH (2 VIEW FRONTAL & LATERAL) CLINICAL HISTORY: Acute cough MQ: XC2_6 EXAM DATE/TIME: 11/06/2021 4:52 PM COMPARISON: No relevant prior studies available. RESULT: Lines, tubes, and devices: None. Lungs and pleura: No consolidation. No lung mass. No pleural effusion. No pneumothorax. Cardiomediastinal silhouette: Normal cardiomediastinal silhouette. Bones and soft tissues: Unremarkable. ZZZ_DO_NOT_U _DIVISION OF RADIOLOGY Provider, [facility] - 11/06/2021 * * *Final Report* * * DATE OF EXAM: Nov 06 2021 4:52PM WOX 5291 - XR CHEST 2V FRONTAL/LAT / PROCEDURE REASON: Acute cough * * * * Physician Interpretation * * * * EXAMINATION: CHEST RADIOGRAPH (2 VIEW FRONTAL & LATERAL) CLINICAL HISTORY: Acute cough MQ: XC2_6 EXAM DATE/TIME: 11/06/2021 4:52 PM COMPARISON: No relevant prior studies available. RESULT: Lines, tubes, and devices: None. Lungs and pleura: No consolidation. No lung mass. No pleural effusion. No pneumothorax. Cardiomediastinal silhouette: Normal cardiomediastinal silhouette. Bones and soft tissues: Unremarkable. IMPRESSION IMPRESSION: No acute radiographic abnormality. Accounting Bookkeeper: PSCB Transcribe Date/Time: Nov 06 2021 4:55P Dictated by : JORGE MUELLER MD This examination was interpreted and the report reviewed and electronically signed by: JORGE MUELLER MD on Nov 06 2021 4:55PM EST [facility] Radiology Study observation (narrative) [facility] lo [facility] XR Chest PA and LateralOrder ed By: Cc Provider on 11-06-2021 [facility] Vital Signs Date Time Vital Sign Value Performing Clinician Facility 09-03-2024 12:40-0400 Body temperature 97.1 [degF] Dr. Marietta Miller MD Work Phone: 2(995)124-304524 [place] [address] 09-03-2024 12:40-0400 Diastolic blood pressure 74 mm[Hg] Dr. Marietta Miller MD Work Phone: 0(605)690-231424 [place] [address] 09-03-2024 12:40-0400 Heart rate 71 /min Dr. Marietta Miller MD Work Phone: 7(194)172-664691 [place] [address] 09-03-2024 12:40-0400 Respiratory rate 16 /min Dr. Marietta Miller MD Work Phone: 5(394)669-173291 [place] [address] 09-03-2024 12:40-0400 SaO2% (BldA) [Mass fraction] 100 % Dr. Marietta Miller MD Work Phone: 2(209)475-219791 [place] [address] 09-03-2024 12:40-0400 Systolic blood pressure 101 mm[Hg] Dr. Marietta Miller MD Work Phone: 9(985)648-190391 [place] [address] 09-03-2024 09:29-0400 Body height 162.[address] Marietta Miller MD Work Phone: 7(159)027-725691 [place] [address] 09-03-2024 09:29-0400 Body mass index (BMI) [Ratio] 29.1 kg/m2 Dr. Marietta Miller MD Work Phone: 5(874)758-184791 [place] [address] 09-03-2024 09:29-0400 Body weight [address] Marietta Miller MD Work Phone: 7(486)867-908591 [place] [address] 08-10-2023 08:19-0400 Body height 162.[address] Marietta Miller Work Phone: 9(712)108-687691 [place] [address] 08-10-2023 08:13-0400 Body mass index (BMI) [Ratio] 31.4 kg/m2 Dr. Marietta Miller Work Phone: 3(289)119-569391 [place] [address] 08-10-2023 08:13-0400 Body weight 83.[address] Marietta Miller Work Phone: 5(218)895-322104 [address] 08-10-2023 08:13-0400 Diastolic blood pressure 76 mm[Hg] Dr. Marietta Miller Work Phone: [facility] 08-10-2023 08:13-0400 Systolic blood pressure 104 mm[Hg] Dr. Marietta Miller Work Phone: [facility] 05-21-2023 12:07-0500 Body temperature 96.91 [degF] [facility] NITROGLYCERIN DISTRIBUTOR.ACTIVITY DIRECTOR Work Phone: [facility] 05-21-2023 12:07-0500 Body weight 82.1 kg [facility] NITROGLYCERIN DISTRIBUTOR.ACTIVITY DIRECTOR Work Phone: [facility] 05-21-2023 12:07-0500 Diastolic blood pressure 74 mm[Hg] [facility] NITROGLYCERIN DISTRIBUTOR.ACTIVITY DIRECTOR Work Phone: [facility] 05-21-2023 12:07-0500 Heart rate 112 /min [facility] NITROGLYCERIN DISTRIBUTOR.ACTIVITY DIRECTOR Work Phone: [facility] 05-21-2023 12:07-0500 Respiratory rate 16 /min [facility] NITROGLYCERIN DISTRIBUTOR.ACTIVITY DIRECTOR Work Phone: [facility] 05-21-2023 12:07-0500 SaO2% (BldA) [Mass fraction] 97 % [facility] NITROGLYCERIN DISTRIBUTOR.ACTIVITY DIRECTOR Work Phone: [facility] 05-21-2023 12:07-0500 Systolic blood pressure 110 mm[Hg] [facility] NITROGLYCERIN DISTRIBUTOR.ACTIVITY DIRECTOR Work Phone: [facility] 06-04-2022 17:41-0500 Body temperature 98.49 [degF] Darline Older NITROGLYCERIN DISTRIBUTOR.ACTIVITY DIRECTOR Work Phone: [facility] 06-04-2022 17:41-0500 Body weight 84.37 kg Darline Older NITROGLYCERIN DISTRIBUTOR.ACTIVITY DIRECTOR Work Phone: [facility] 06-04-2022 17:41-0500 Diastolic blood pressure 76 mm[Hg] Darline Older NITROGLYCERIN DISTRIBUTOR.ACTIVITY DIRECTOR Work Phone: [facility] 06-04-2022 17:41-0500 Heart rate 106 /min Darline Older NITROGLYCERIN DISTRIBUTOR.ACTIVITY DIRECTOR Work Phone: [facility] 06-04-2022 17:41-0500 Respiratory rate 18 /min Darline Older NITROGLYCERIN DISTRIBUTOR.ACTIVITY DIRECTOR Work Phone: [facility] 06-04-2022 17:41-0500 SaO2% (BldA) [Mass fraction] 99 % Darline Older NITROGLYCERIN DISTRIBUTOR.ACTIVITY DIRECTOR Work Phone: [facility] 06-04-2022 17:41-0500 Systolic blood pressure 130 mm[Hg] Darline Older NITROGLYCERIN DISTRIBUTOR.ACTIVITY DIRECTOR Work Phone: [facility] 08-20-2021 17:30-0400 Body temperature 97.7 [degF] Darlin Woo NITROGLYCERIN DISTRIBUTOR.ACTIVITY DIRECTOR Work Phone: [facility] 08-20-2021 17:30-0400 Body weight 82.37 kg Darlin Woo APRN.ACTIVITY DIRECTOR Work Phone: [facility] 08-20-2021 17:30-0400 Diastolic blood pressure 82 mm[Hg] Darlin Woo NITROGLYCERIN DISTRIBUTOR.ACTIVITY DIRECTOR Work Phone: [facility] 08-20-2021 17:30-0400 Heart rate 103 /min Darlin Woo NITROGLYCERIN DISTRIBUTOR.ACTIVITY DIRECTOR Work Phone: [facility] 08-20-2021 17:30-0400 Respiratory rate 18 /min Darlin Woo NITROGLYCERIN DISTRIBUTOR.ACTIVITY DIRECTOR Work Phone: [facility] 08-20-2021 17:30-0400 SaO2% (BldA) [Mass fraction] 99 % Darlin Woo NITROGLYCERIN DISTRIBUTOR.ACTIVITY DIRECTOR Work Phone: [facility] 08-20-2021 17:30-0400 Systolic blood pressure 128 mm[Hg] Darlin Woo NITROGLYCERIN DISTRIBUTOR.ACTIVITY DIRECTOR Work Phone: [facility] 07-22-2021 09:41-0400 Body temperature 98.71 [degF] Gilbert Wall NITROGLYCERIN DISTRIBUTOR.ACTIVITY DIRECTOR Work Phone: [facility] 07-22-2021 09:41-0400 Body weight 81.65 kg Gilbert Wall NITROGLYCERIN DISTRIBUTOR.ACTIVITY DIRECTOR Work Phone: [facility] 07-22-2021 09:41-0400 Diastolic blood pressure 80 mm[Hg] [facility] NITROGLYCERIN DISTRIBUTOR.ACTIVITY DIRECTOR Work Phone: [facility] 07-22-2021 09:41-0400 Heart rate 94 /min [facility] NITROGLYCERIN DISTRIBUTOR.ACTIVITY DIRECTOR Work Phone: [facility] 07-22-2021 09:41-0400 Respiratory rate 16 /min [facility] NITROGLYCERIN DISTRIBUTOR.ACTIVITY DIRECTOR Work Phone: [facility] 07-22-2021 09:41-0400 SaO2% (BldA) [Mass fraction] 98 % [facility] NITROGLYCERIN DISTRIBUTOR.ACTIVITY DIRECTOR Work Phone: [facility] 07-22-2021 09:41-0400 Systolic blood pressure 122 mm[Hg] [facility] NITROGLYCERIN DISTRIBUTOR.ACTIVITY DIRECTOR Work Phone: [facility] Encounters Encounter Date Encounter Type Care Provider Facility Start: 03-07-2025 ambulatory Solange Reid AUTO ACCESSORIES INSTALLER Facil ity:[facility] Start: 02-07-2025 End: 02-07-2025 ambulatory Solange Reid NP Facility:[facility] Start: 10-30-2024 End: 10-30-[address] Marietta Miller MD Work Phone: -Laboratory Specimen Start: 10-30-2024 End: 10-30-2024 Patient encounter procedure OUT OF TOWN DOCTOR -Laboratory Specimen Work Phone: Start: 10-30-2024 End: 10-30-2024 ambulatory Marietta Miller Facility:[facility] Start: 09-20-2024 Encounter for other preprocedural examination Carolina Monterroso [facility] Start: 09-03-2024 ambulatory Marietta Miller Facility:[facility] Start: 09-03-2024 Non-patient / Non-visit Dr. Garcia Monterroso MD -[facility] Start: 09-03-2024 End: 09-03-2024 Admission to same day surgery center Dr. Carolina Monterroso MD -Endoscopy Work Phone: Start: 09-03-2024 End: 09-03-[address] Marietta Miller MD Work Phone: [facility] Work Phone: Start: 08-31-2024 End: 08-31-2024 ambulatory BARBIE MCCAIN PA-C Facility:[facility] Start: 08-31-2024 End: 08-31-2024 Patient encounter procedure BARBIE MCCAIN PA-C [facility] Start: 05-29-2024 Registered Referred HEALTH RIS K ASSESSMENT -Health & Wellness Work Phone: Start: 05-29-2024 ambulatory Health Risk Assessment Facility:[facility] Start: 05-03-2024 End: 05-03-2024 ambulatory Terrence Lynn Facility:[facility] Start: 03-20-2024 ambulatory Roscoe Basurto ity:[facility] Start: 08-10-2023 End: 08-10-[address] Marietta Miller Work Phone: [facility] Work Phone: Start: 08-10-2023 End: 08-10-[address] Marietta Miller Work Phone: [facility]-Laboratory, Specimen Work Phone: Start: 08-10-2023 End: 08-10-[address] Marietta Miller Work Phone: [facility] Work Phone: Start: 07-15-2023 End: 07-15-2023 ambulatory [facility] Work Phone: Start: 07-15-2023 End: 07-15-2023 Patient encounter procedure [facility]-Outpatient Breast Imaging Work Phone: Start: 05-21-2023 End: 05-21-2023 ambulatory MARIETTA MILLER Facility:[facility] Start: 05-21-2023 End: 05-21-2023 Office outpatient visit 15 minutes Gilbert Wall APRN.ACTIVITY DIRECTOR Work Phone: [facility] Comment on above: Otalgia, left (Prima ry Dx) Start: 02-21-2023 End: 02-21-2023 ambulatory [facility] Work Phone: Start: 02-21-2023 End: 02-21-2023 Patient encounter procedure [facility]-Nuclear Medicine, [facility] Work Phone: Start: 02-04-2023 End: 02-04-2023 ambulatory [facility] Work Phone: Start: 02-04-2023 End: 02-04-2023 Patient encounter procedure [facility]-Ultrasound, [facility] Work Phone: Start: 01-28-2023 End: 01-28-2023 ambulatory [facility] Work Phone: Start: 01-28-2023 End: 01-28-[address] [facility] Start: 06-08-2022 End: 06-08-2022 ambulatory [facility] Work Phone: Start: 06-08-2022 End: 06-08-2022 Patient encounter procedure [facility]-Outpatient Breast Imaging Start: 06-04-2022 End: 06-04-2022 ambulatory [facility] Facility:[facility] Start: 06-04-2022 End: 06-04-2022 Patient encounter procedure Darline Mendez NITROGLYCERIN DISTRIBUTOR.ACTIVITY DIRECTOR Work Phone: [facility] Comment on above: Viral URI with cough (Primary Dx); Throat pain; Streptococcus exposure Start: 02-12-2022 End: 02-12-2022 ambulatory [facility] Work Phone: Start: 02-12-2022 End: 02-12-2022 Patient encounter procedure [facility]-Ultrasound, [facility] Start: 02-09-2022 End: 02-09-2022 [facility] Start: 11-06-2021 End: 11-06-2021 Subsequent hospital visit by physician Xr [facility] Work Phone: Radiology Comment on above: Acute cough [R05.1] Start: 08-20-2021 End: 08-20-2021 Patient encounter procedure Darlin Woo ACTIVITY DIRECTOR Work Phone: [facility] Comment on above: Sinus congestion (Pr imary Dx); Suspected COVID-19 virus infection Start: 07-23-2021 Telephone encounter Leon mcgraw APRN.ACTIVITY DIRECTOR Work Phone: [facility] Comment on above: Results Start: 07-22-2021 End: 07-22-2021 Patient encounter procedure Gilbert Wall APRN.ACTIVITY DIRECTOR Work Phone: [facility] Comment on above: Viral illness (Prima ry Dx) Procedures Date Procedure Procedure Detail Performing Clinician Start: 10-30-2024 Total iron binding c apacity measurement Dr. Marietta Miller MD Work Phone: Start: 09-03-[address] Marietta wharton MD Work Phone: Start: 05-29-2024 Measurement of renal function Dr. Marietta Miller MD Work Phone: Comment on above: GFR Calc Start: 07-15-2023 Screening mammography Start: 02-21-2023 Radionuclide imaging of liver and/or biliary tract using radioactive isotope Start: 02-04-2023 Ultrasonography of abdomen Start: 06-08-2022 Screening mammography Start: 06-04-2022 STREP A MOLECULAR (POC) Leon Moody APRN.ACTIVITY DIRECTOR Work Phone: Start: 02-12-2022 Ultrasonography of abdomen Start: 11-06-2021 Radiologic exam ches t 2 views Xiao Garvin APRN.ACTIVITY DIRECTOR Work Phone: Start: 07-04-2012 Lipid 1996 panel - S al or Plasma Gilbert Wall APRN.ACTIVITY DIRECTOR Work Phone: Plan of Treatment Date Care Activity Detail Author Start: 11-26-2029 Urine microalbumin profile DTaP,Tdap,Td Vaccine (2 - Td or Tdap) [facility] Start: 09-03-2024 Colonoscopy flx dx w/collj spec when pfrmd DIAGNOSTIC COLONOSCOPY [facility] Start: 09-03-2024 Patient discharge [facility] Start: 12-18-2023 Covid-19 Vaccine ( season) Covid-19 Vaccine ( season) [facility] Start: 12-18-2023 Influenza vaccination Influenza Vacc ine (#1) [facility] Start: 08-10-2023 Patient referral [facility] Work Phone: Start: 12-17-2022 Covid-19 Vaccine ( season) Covid-19 Vaccine () [facility] Start: 12-17-2022 Influenza vaccination Influenza Vacc ine (#1) [facility] Start: 2022 Diabetes Screening Diabetes Screenin g [facility] Start: 2022 Lipid panel Lipid Screening [facility] Start: 2022 Screening for malign ant neoplasm of colon [facility] Start: 06-04-2022 End: 06-18-2022 Influenza virus A and B RNA and SARS-CoV-2 (COVID-19) N gene panel - Respiratory specimen by MARILYN with probe detection COVID WITH FLUA+B, ROUTINE Microbiology Routine Viral URI with cough Expected: 06/04/2022, Expires: 06/18/2022 [facility] Work Phone: Comment on above: Expected: 06/04/2022 , Expires: 06/18/2022 Start: 12-17-2021 Influenza vaccination [facility] Start: 08-20-2021 End: 09-03-2021 Influenza virus A and B RNA and SARS-CoV-2 (COVID-19) N gene panel - Respiratory specimen by MARILYN with probe detection COVID WITH FLUA+B, ROUTINE Microbiology Routine Suspected COVID-19 virus infection Expected: 08/20/2021, Expires: 09/03/2021 [facility] Work Phone: Comment on above: Expected: 08/20/2021 , Expires: 09/03/2021 Start: 09-19-2018 HPV TESTING HPV TESTING [facility] Start: 09-19-2018 PAP TESTING PAP TESTING [facility] Start: 09-19-2018 Screening for malign ant neoplasm of cervix [facility] Start: 2017 Mammography MAMMOGRAM [facility] Start: 2017 Screening for malign ant neoplasm of breast Mammogram Screening [facility] Start: 1996 Hepatitis B Vaccine (1 of 3 - 19+ 3-dose series) Hepatitis B Vaccine (1 of 3 - 19+ 3-dose series) [facility] Start: 1996 Urine microalbumin profile DTAP,TDAP,TD (1 - Tdap) [facility] Start: 12-09-1995 Anxiety Screening Anxiety Screening [facility] Start: 12-09-1995 HEPATITIS C SCREENING HEPATITIS C [facility] Start: 12-09-1995 Hepatitis C screening Hepatitis C [facility] Start: 12-09-1995 HIV SCREENING HIV SCREENING [facility] Start: 12-09-1995 HIV screening HIV Screening [facility] Start: 1977 HEPATITIS B (1 of 3 - 3-dose series) HEPATITIS B (1 of 3 - 3-dose series) [facility] Start: 1977 Hepatitis B Vaccine (1 of 3 - 3-dose series) Hepatitis B Vaccine (1 of 3 - 3-dose series) [facility] Influenza virus A an d B RNA and SARS-CoV-2 (COVID-19) N gene panel - Respiratory specimen by MARILYN with probe detection COVID WITH FLUA+B, ROUTINE Microbiology Routine Viral illness 07/22/2021 10:30 AM EDT [facility] Work Phone: Patient referral [facility] Work Phone: Immunizations Immunization Date Immunization Notes Care Provider Fa [facility] 01-30-2020 influenza virus vaccine, unspecified formulation Gilbert Wall NITROGLYCERIN DISTRIBUTOR.ACTIVITY DIRECTOR Work Phone: [facility] Payers Date Payer Category Payer Unknown [id number] 2024 Self-pay [id number] 2022 Unknown [id number] 2015 Unknown [employer] BLUE CARD PPO OOS [id number] 2015-Present [phone] [address] [place] [address] PPO [id number] 2015 Unknown [id number] 1977 Unknown [id number] Unknown ANTHEM [id number] Unknown [facility] PACKAGE PLAN [id number] 0421 Unknown [id number] Unknown [id number] Unknown [id number] Unknown [id number] Unknown [id number] Unknown [id number] Unknown [id number] Unknown [id number] Social History Date Type Detail Facility Start: 06-04-2022 End: 09-03-2024 Tobacco smoking status NHIS Ex-smoker [facility] Work Phone: History of tobacco use Cigarette Smoker [facility] Work Phone: Start: 07-22-2021 End: 11-06-2021 Alcohol intake Current drinker of alcohol (finding) [facility] Start: 1975 Sex Assigned At Not on file [facility] Start: 07-12-2021 End: 11-06-2021 Exposure to SARS-CoV-2 (event) Not sure [facility] Work Phone: Start: 08-10-2021 End: 08-20-2021 Exposure to SARS-CoV-2 (event) Yes [facility] Work Phone: Start: 04-30-2021 End: 04-30-2021 Tobacco smoking status NHIS Unknown if ever smoked [facility] Start: 1975 Sex Assigned At Female W [facility] History of tobacco use Current smoker [facility] Start: 03-26-2020 End: 06-04-2022 Cigarettes smoked current (pack per day) - Reported 0.5 [facility] Start: 08-12-2010 End: 06-04-2022 Tobacco use and exposure Smokeless tobacco non-user [facility] Start: 06-04-2022 Tobacco Comment quit in 2001 [facility] Start: 03-26-2020 End: 05-21-2023 Tobacco use panel [facility] National Score (1-10 0), lower number is lower risk Not on file [facility] Goals Date Patient Goal Desired Activity /State Mental Status Date Assessment Result Facility 09-03-2024 Cognitive function Voice/Name [facility] Work Phone: Clinical Notes 05-23-2006 to 09-03-2024 Note Date & Type Note Facility 09-03-2024 Consult note [facility] 09-03-2024 History and physical note Note Date/Time September 03, 2024 11:11am [facility] Medical Records Department [address] [place] [address] History & Physical Exam 09/03/24 1036 MR#: [id number] Acct: [id number] Name: SUMAYA BALTAZAR Rep #:[id number] 37 : 1975 48 From: Carolina Monterroso MD PCP: Dr. Marietta Miller MD Status:[facility] Location: [address] [facility] - General General Date of Service: 09/03/24 HPI Narrative SUMAYA BALTAZAR, is a 48 F who presents for screening colonoscopy. Patient never had previous colonoscopy. Patient denies any family history of colon cancer. Patient has bowel movements daily denies any blood. Patient denies any chronic abdominal pain/nausea/vomiting. Patient states she was diagnosed with reflux early in life about 10 years old. Patient did stop drinking alcohol recently as she is sensitive and has very few symptoms and is not on any current medication. [facility] Medical History Wears contact lenses Wears glasses Alcohol use Low iron Anemia Fatty liver Easy bruising Vertigo Dietary restriction Heartburn Gastric reflux Former smoker Asthma Genetic testing of female Abnormal pulmonary function test Anxiety Depression Home Medications ?Medication ?Instructions ?Recorded ?Last Taken ?Type bupropion HCl 300 mg 24 hr tablet, 300 mg PO DAILY Unknown History extended release desvenlafaxine succinate 50 mg 50 mg PO Q24H 04/30/21 Unknown History tablet,extended release 24 hr dextroamphetamine-amphetamine 10 30 mg PO DAILY Unknown History mg tablet (Adderall) vitamin Bcomplex no.10-folic acid 1 tab PO DAILY 08/09 Unknown History ER 400 mcg tablet,extended release naltrexone 50 mg tablet 25 - 50 mg PO DAILY 08/30/24 Unknown History Allergy/AdvReac Type Severity Reaction Status Date / Time acetaminophen (From Percocet) Allergy Angioedema Verified 09/03/24 09:29 latex Allergy Rash Verified 09/03/24 09:29 oxycodone (From Percocet) Allergy Angioedema Verified 09/03/24 09:29 Family History Mother Thyroid disorder Breast cancer in female Father Thyroid disorder Sister No problems noted. 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 Past Medical/Surgical History Planned Operation Planned Operative Procedure(s): COLONOSCOPY Previous Hospitalizations/Surgeries HX Hospitalizations: No Any Problems With Anesthesia: No You/Your Family Experience Fever (Hyperthermia) With Anes: No Cholinesterase deficiency: No Cardiovascular Hx of Irregular Heartbeat and/or Afib: No Hx Heart Attack: No Hx Congestive Heart Failure: No Hx Hypertension: No Hx Pacemaker: No Respiratory Hx Chronic Obstructive Pulmonary Disease (COPD): No Hx Asthma: Yes Hx Emphysema: No Hx Sleep Apnea: No Hx Respiratory Tract Infection/Cold (presently): No Do You Snore Loudly (louder than talking or can be heard): No Do You Often Feel Tired/ Fatigued/ Sleepy Dring Daytime?: No Has Anyone Observed You Stop Breathing During Sleep?: No Result (for STOP score): Negative Hx Smoking: No Smoking Status: Former smoker Gastrointestinal Hx Ulcer: No Special diet followed at home: Yes Neurological Hx Seizures: No Hx Parkinson's Disease: No Hx Head/Neck Injury: No Hx Headaches: No Hx Back Injury/Pain: No Does patient have nerve stimulator: No Blood Disorder Hx Anemia: No Genitourinary Hx Dialysis: No Musculoskeletal Hx Arthritis: Yes Hx Rheumatoid Arthritis: No Endocrine Hx Diabetes: No Thyroid Disease: No Psycho/Social Hx Depression: Yes Hx Dementia: No Miscellaneous Hx Cancer: No Recent Exposure to Contagious Disease: No Allergies acetaminophen (From Percocet) Allergy (Verified 09/03/24 09:29) Angioedema latex Allergy (Verified 09/03/24 09:29) Rash oxycodone (From Percocet) Allergy (Verified 09/03/24 09:29) Angioedema Discharge Is Pt Admitted From a Prison, or a Snf: No Who Could Help: After D/C, Where Do you Plan to Go: Return Home Vital Signs Vital Signs Vital Signs: 09/03/24 09:29 09/03/24 09:29 Temperature 97.8 F Temperature Source Temporal Pulse Rate 82 Respiratory Rate 16 Respiratory Pattern Normal Blood Pressure 111/80 Blood Pressure Mean 90 Blood Pressure Source Monitor Blood Pressure Position Semi-Fowlers Blood Pressure Location Right Arm Pulse Ox 98 Oxygen Delivery Method Room Air Weight Weight: 169 lb 12.095 oz Body Mass Index (BMI) 29.1 Physical Exam Const alert, oriented x3 and no apparent distress HEENT normocephalic and head/scalp atraumatic Resp normal respiratory effort Cardio regular rate GI soft to palpation and non-tender; Negative for non-distended Palpation: Negative for guarding Extremity no clubbing, cyanosis or edema Skin no rashes or lesions noted Neuro CN's II-XII intact bilaterally Psych mental status grossly normal Assessment & Plan Assessment/Plan (1) Screening for colon cancer: Surgery Risks - Colonoscopy I discussed with the patient the risks of the procedure: Yes Risks Include but are not Limited To: Risks include but are not limited to: Bleeding, perforation requiring further surgery, inability to complete colonoscopy requiring barium enema. 09/03/24 1111 <Electronically signed by Carolina Monterroso MD> Cosigner Signature (if applicable): CC: Dr. Marietta Miller MD; Dr. Carolina Monterroso MD~ Signed [facility] Work Phone: 1(335) 660-659005-19-2025 Consult note [facility] Medical Records Department [address] [place] [address] Anesthesia Postop Eval I 09/03/24 1232 MR#: [id number] Acct: [id number] Name: SUMAYA BALTAZAR Rep #:[id number] : 1975 48 From: Jah CHAUHAN PCP: Dr. Marietta Miller MD Status:REG SD Y Race: C Location: [place] [address] Anesthesia: Postop Eval I Current Vital Signs Temperature: 97.2 F Pulse Rate: 77 Blood Pressure: 100/71 Respiratory Rate: 16 Pulse Ox: 98 Oxygen Delivery Method: Room Air Assessment Airway patent: Yes Spontaneous unlabored respirations: Yes Mental status: Awake nausea: No Vomiting: No Anesthesia Complication: No Fluid Hydration Crystalloid volume administer (ml): 400 Total IV fluid infused: 400 Progress Note Anesthesia document: Postop Eval 1 completed: Yes 09/03/24 1233 QC LAB TECHNICIAN> Date _ Jah HernandezLaquey BETTYE Cosigner Signature: Date CC: ~ Signed [facility]05-19-2025 Procedure note [facility] Medical Records Department [address] [place] [address] Colonoscopy Report MR#: [id number] Acct: [id number] Name: SUMAYA BALTAZAR Rep #:[id number] : 1975 48 From: Carolina Monterroso MD PCP: Dr. Marietta Miller MD Status:[facility] Patient Name: Sumaya Baltazar Procedure Date: 09/03/2024 12:04 PM Date of : 1975 Age: 48 Procedure: Colonoscopy Indications: Screening for colorectal malignant neoplasm Providers: Carolina Monterroso MD Referring MD: Marietta Miller Medicines: Monitored Anesthesia Care Patient Profile: This is a 48 year old female. Last Colonoscopy: none. The patient's first colonoscopy is today. Complications: No immediate complications. Procedure: Pre-Anesthesia Assessment: - Prior to the procedure, a History and Physical was performed, and patient medications and allergies were reviewed. The patient's tolerance of previous anesthesia was also reviewed. The risks and benefits of the procedure and the sedation options and risks were discussed with the patient. All questions were answered, and informed consent was obtained. Prior Anticoagulants: The patient has taken no anticoagulant or antiplatelet agents. ASA Grade Assessment: Per anesthesia. After reviewing the risks and benefits, the patient was deemed in satisfactory condition to undergo the procedure. After I obtained informed consent, the scope was passed under direct vision. Throughout the procedure, the patient's blood pressure, pulse, and oxygen saturations were monitored continuously. The Colonoscope was introduced through the anus and advanced to the cecum, identified by appendiceal orifice and ileocecal valve. The colonoscopy was performed without difficulty. The patient tolerated the procedure well. The quality of the bowel preparation was good. Scope In: 12:09:54 PM Scope Withdrawal Time 0 hours 8 minutes 34 seconds Scope Out: 12:23:42 PM Total Procedure Duration Time 0 hours 13 minutes 48 seconds Findings: The perianal and digital rectal examinations were normal. Non-bleeding internal hemorrhoids were found. The hemorrhoids were Grade I (internal hemorrhoids that do not prolapse). The entire examined colon appeared normal. Impression: - Non-bleeding internal hemorrhoids. - The entire examined colon is normal. - No specimens collected. Recommendation: - Discharge patient to home. - Resume previous diet. - Continue present medications. - Repeat colonoscopy in 10 years for screening purposes. Procedure Code(s): --- Professional --- G0121, PT, Colorectal cancer screening; colonoscopy on individual not meeting criteria for high risk Diagnosis Code(s): --- Professional --- Z12.11, Encounter for screening for malignant neoplasm of colon CPT copyright 2021 [employer]. All rights reserved. The codes documented in this report are preliminary and upon chain machine operator review may be revised to meet current compliance requirements. MD Carolina Borjas MD 09/03/2024 12:27:25 PM This report has been signed electronically. Number of Addenda: 0 Note Initiated On: 09/03/2024 12:04 PM 09/03/24 1227 Date _ Carolina Monterroso MD Cosigner Signature: Date (if indicated) CC: Dr. Marietta Miller MD; Dr. Carolina Monterroso MD ~ Date Dictated: 09/03/24 1204 Date Transcribed: Accounting Bookkeeper: TR Signed [facility]05-19-2025 Procedure note [facility] Medical Records Department [address] [place] [address] Operative Report - CC Letter MR#: [id number] Acct: [id number] Name: SUMAYA BALTAZAR Rep #:[id number] : 1975 48 From: Carolina Monterroso MD PCP: Dr. Marietta Miller MD Status:REG [facility] 09/03/2024 Marietta Miller [address] [place] [address] Re : Colonoscopy procedure for Sumaya Baltazar Dear Dr. Miller This procedure was performed on Tuesday, September 03, 2024. My impressions and recommendations are as follows: Impressions : - Non-bleeding internal hemorrhoids. - The entire examined colon is normal. - No specimens collected. Recommendations : - Discharge patient to home. - Resume previous diet. - Continue present medications. - Repeat colonoscopy in 10 years for screening purposes. My findings are described in the full procedure note, which is enclosed. If I can be of further assistance, please feel free to contact me at Doctor phone number(s): , Work: . Sincerely, MD Carolina Borjas MD 09/03/2024 12:27:25 PM This report has been signed electronically. 09/03/24 1227 Date _ Carolina Monterroso MD Cosigner Signature: Date (if indicated) CC: Dr. Marietta Miller MD; Dr. Carolina Monterroso MD ~ Date Dictated: 09/03/24 1204 Date Transcribed: Accounting Bookkeeper: TR Signed [facility]05-19-2025 Consult note Author Tom Hernandez [facility] Note Date/Time September 03, 2024 9:36a m [facility] Medical Records Department [address] [place] [address] Pre-Anesthesia Evaluation 09/03/24 0936 MR#: [id number] Acct: [id number] Name: SUMAYA BALTAZAR Rep #:[id number] : 1975 48 From: Tom Hernandez MD PCP: Dr. Marietta Miller MD Status:REG SDC Y Race: C Location: [facility]-1 ASA Classification* ASA Classification ASA Classification: 2 Assessment & Plan Anesthesia* Anesthesia Assessment Anesthesia Assessment: Discussed sedation and/or anesthesia options, risks, benefits, and alternatives with patient/parents/legal guardian/POA. Questions invited. The patient/parents/legal guardian/POA seems to understand and agrees to proceedwith anesthesia plan. Reviewed the physical assessment, medical history, allergy history and patient home medications list prior to surgery/procedure/anesthetic and documented any changes. Performed airway and anesthesia risk assessments. Anesthesia Type Anesthesia Type: MAC Anesthesia Focused Assessment* Airway Assessment Mouth opens: >3 cm Mallampati Score: II Focused Labs Anesthesia Preop lab: CBC WBC 5.7 K/mm3 (4.4-11.0) 05/29/24 07:42 05/29/24 RBC 4.69 M/mm3 (4.2-5.4) 05/29/24 07:42 05/29/24 Hgb 12.0 g/dL (12.0-15.0) 05/29/24 07:42 05/29/24 Hct 38.4 % (37-47) 05/29/24 07:42 05/29/24 Plt Count 335 K/mm3 (150-450) 05/29/24 07:42 05/29/24 CHEMISTRY Potassium 3.6 mmol/L (3.5-5.1) 05/29/24 07:42 05/29/24 Sodium 138 mmol/L (136-145) 05/29/24 07:42 05/29/24 Magnesium 2.0 mg/dL (1.6-2.6) 01/31/20 17:30 01/31/20 BUN 10 mg/dL (7-18) 05/29/24 07:42 05/29/24 Creatinine 0.86 mg/dL (0.55-1.02) 05/29/24 07:42 05/29/24 Glucose 93 mg/dL (74-106) 05/29/24 07:42 05/29/24 TSH 3.31 uIU/mL (0.358-3.74) 04/06/21 09:19 COAG Pre-Assessment Diagnosis/Proposed Procedure Planned Operative Procedure(s): COLONOSCOPY Anesthesia History 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 When Was Last Pacemaker Check QUESTION #4 FULL TEXT: You/Your Family Experience fever (hyperthermia) with Anesthesia Last Oral Intake Last Oral intake: Last Oral Intake NPO since Meds taken in AM with sips of water? 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 trader Female Yes 08/30/24 09:59 HX of Motion Sickness No 08/30/24 09:59 HX of N/V After Surgery No 08/30/24 09:59 Non-Smoker Yes 08/30/24 09:59 Duration of Surgery greater No 08/30/24 09:59 than 60 minutes Number of Risk Factors 2 08/30/24 09:59 PONV Score Moderate Risk 08/30/24 09:59 Height & Weight Height & Weight: Anesthesia: Height & Weight Height 5 ft 4 in 08/10/23 08:19 Respiratory Assessment Respiratory Assessment - commodity trader: Respiratory Tract Infection Hx - commodity trader Hx Respiratory Tract Infection No 08/30/24 09:59 STOP Sleep Apnea STOP Sleep Apnea - commodity trader: STOP Sleep Apnea - commodity trader Hx Hypertension No 08/30/24 09:59 Hx Sleep Apnea No 08/30/24 09:59 CPAP BIPAP Do you snore loudly (louder No 08/30/24 09:59 than talking or can be heard Do you often feel tired/ No 08/30/24 09:59 fatigued/ sleepy during daytime? Has anyone observed you stop No 08/30/24 09:59 breathing during sleep? STOP Results Negative 08/30/24 09:59 QUESTION #5 FULL TEXT : Do you snore loudly (louder than talking or can be heard through closed doors)? 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 Specify any problems Hx of Preganancy in last 3 No 08/30/24 09:59 Months Nurse Filling Out Transfusion VLEHMAN 08/30/24 09:59 & Questions: Date: 08/30/24 08/30/24 09:59 Time: 10:08 08/30/24 09:59 Patient unable to answer at this time (ie. confused, unrespo /Reproduction History /Reproductive History - commodity trader: /Reproductive Hx- commodity trader Hx Now Gestational Age (in weeks): EDC: Hx Hx Para Hx Section SAB No 08/10/23 08:19 Active Medications Active Medications: Current Medications Generic Name Dose Route Start Last Admin Trade Name Freq PRN Reason Stop Dose Admin Lactated Ringer's 1,000 mls @ 15 mls/hr 09/03/24 09:30 IV .Q48H MIR PFSH Medical History Wears contact lenses Wears glasses Alcohol use Low iron Anemia Fatty liver Easy bruising Vertigo Dietary restriction Heartburn Gastric reflux Former smoker Asthma Genetic testing of female Abnormal pulmonary function test Anxiety Depression Home Medications ?Medication ?Instructions ?Recorded ?Last Taken ?Type bupropion HCl 300 mg 24 hr tablet, 300 mg PO DAILY Unknown History extended release desvenlafaxine succinate 50 mg 50 mg PO Q24H 04/30/21 Unknown History tablet,extended release 24 hr dextroamphetamine-amphetamine 10 30 mg PO DAILY Unknown History mg tablet (Adderall) vitamin Bcomplex no.10-folic acid 1 tab PO DAILY 08/09 Unknown History ER 400 mcg tablet,extended release naltrexone 50 mg tablet 25 - 50 mg PO DAILY 08/30/24 Unknown History Allergy/AdvReac Type Severity Reaction Status Date / Time acetaminophen (From Percocet) Allergy Angioedema Verified 09/03/24 09:29 latex Allergy Rash Verified 09/03/24 09:29 oxycodone (From Percocet) Allergy Angioedema Verified 09/03/24 09:29 Family History Mother Thyroid disorder Breast cancer in female Father Thyroid disorder Sister No problems noted. 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 09/03/24935 <Electronically signed by Tom Hernandez MD > Date _ Tmo Hernandez MD Cosigner Signature: Date CC: ~ Signed [facility] Work Phone: [phone]) 961-867405-19-2025 Evaluation note* Diagnosis Onset Date Resolution Status Admit Date Screening for colon cancer acute September 03, 2024 9:13am [facility] Work Phone: 1(120) 869-311905-19-2025 History and physical note [facility] Medical Records Department [address] [place] [address] [place] [address] History & Physical Exam 09/03/24 1036 MR#: [id number] Acct: [id number] Name: SUMAYA BALTAZAR Rep #:[id number] : 1975 48 From: Carolina Monterroso MD PCP: Dr. Marietta Miller MD Status:[facility] Location: [place] [address] HPI - General General Date of Service: 09/03/24 HPI Narrative SUMAYA BALTAZAR, is a 48 F who presents for screening colonoscopy. Patient never had previous colonoscopy. Patient denies any family history of colon cancer. Patient has bowel movements daily denies anyblood. Patient denies any chronic abdominal pain/nausea/vomiting. Patient states she was diagnosed with reflux early in life about 10 years old. Patient did stop drinking alcohol recently as she is sensitive and has very few symptoms and is not on any current medication. [facility] Medical History Wears contact lenses Wears glasses Alcohol use Low iron Anemia Fatty liver Easy bruising Vertigo Dietary restriction Heartburn Gastric reflux Former smoker Asthma Genetic testing of female Abnormal pulmonary function test Anxiety Depression Home Medications ?Medication ?Instructions ?Recorded ?Last Taken ?Type bupropion HCl 300 mg 24 hr tablet, 300 mg PO DAILY Unknown History extended release desvenlafaxine succinate 50 mg 50 mg PO Q24H 04/30/21 Unknown History tablet,extended release 24 hr dextroamphetamine-amphetamine 10 30 mg PO DAILY Unknown History mg tablet (Adderall) vitamin Bcomplex no.10-folic acid 1 tab PO DAILY 08/09 Unknown History ER 400 mcg tablet,extended release naltrexone 50 mg tablet 25 - 50 mg PO DAILY 08/30/24 Unknown History Allergy/AdvReac Type Severity Reaction Status Date / Time acetaminophen (From Percocet) Allergy Angioedema Verified 09/03/24 09:29 latex Allergy Rash Verified 09/03/24 09:29 oxycodone (From Percocet) Allergy Angioedema Verified 09/03/24 09:29 Family History Mother Thyroid disorder Breast cancer in female Father Thyroid disorder Sister No problems noted. 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 History Planned Operation Planned Operative Procedure(s): COLONOSCOPY Previous Hospitalizations/Surgeries HX Hospitalizations: No Any Problems With Anesthesia: No You/Your Family Experience Fever (Hyperthermia) With Anes: No Cholinesterase deficiency: No Cardiovascular Hx of Irregular Heartbeat and/or Afib: No Hx Heart Attack: No Hx Congestive Heart Failure: No Hx Hypertension: No Hx Pacemaker: No Respiratory Hx Chronic Obstructive Pulmonary Disease (COPD): No Hx Asthma: Yes Hx Emphysema: No Hx Sleep Apnea: No Hx Respiratory Tract Infection/Cold (presently): No Do You Snore Loudly (louder than talking or can be heard): No Do You Often Feel Tired/ Fatigued/ Sleepy Dring Daytime?: No Has Anyone Observed You Stop Breathing During Sleep?: No Result (for STOP score): Negative Hx Smoking: No Smoking Status: Former smoker Gastrointestinal Hx Ulcer: No Special diet followed at home: Yes Neurological Hx Seizures: No Hx Parkinson's Disease: No Hx Head/Neck Injury: No Hx Headaches: No Hx Back Injury/Pain: No Does patient have nerve stimulator: No Blood Disorder Hx Anemia: No Genitourinary Hx Dialysis: No Musculoskeletal Hx Arthritis: Yes Hx Rheumatoid Arthritis: No Endocrine Hx Diabetes: No Thyroid Disease: No Psycho/Social Hx Depression: Yes Hx Dementia: No Miscellaneous Hx Cancer: No Recent Exposure to Contagious Disease: No Allergies acetaminophen (From Percocet) Allergy (Verified 09/03/24 09:29) Angioedema latex Allergy (Verified 09/03/24 09:29) Rash oxycodone (From Percocet) Allergy (Verified 09/03/24 09:29) Angioedema Discharge Is Pt Admitted From a Prison, or a Snf: No Who Could Help: After D/C, Where Do you Plan to Go: Return Home Vital Signs Vital Signs Vital Signs: 09/03/24 09:29 09/03/24 09:29 Temperature 97.8 F Temperature Source Temporal Pulse Rate 82 Respiratory Rate 16 Respiratory Pattern Normal Blood Pressure 111/80 Blood Pressure Mean 90 Blood Pressure Source Monitor Blood Pressure Position Semi-Fowlers Blood Pressure Location Right Arm Pulse Ox 98 Oxygen Delivery Method Room Air Weight Weight: 169 lb 12.095 oz Body Mass Index (BMI) 29.1 Physical Exam Const alert, oriented x3 and no apparent distress HEENT normocephalic and head/scalp atraumatic Resp normal respiratory effort Cardio regular rate GI soft to palpation and non-tender; Negative for non-distended Palpation: Negative for guarding Extremity no clubbing, cyanosis or edema Skin no rashes or lesions noted Neuro CN's II-XII intact bilaterally Psych mental status grossly normal Assessment & Plan Assessment/Plan (1) Screening for colon cancer: Surgery Risks - Colonoscopy I discussed with the patient the risks of the procedure: Yes Risks Include but are not Limited To: Risks include but are not limited to: Bleeding, perforation requiring further surgery, inability to complete colonoscopy requiring barium enema. 09/03/24 1111 Cosign Signature (if applicable): CC: Dr. Marietta Miller MD; Dr. Carolina Monterroso MD~ Signed [facility]05-19-2025 [facility] Medical Records Department [address] [place] [address] History Physical Exam 09/03/24 1036 MR#: [id number] Acct: [id number] Name: SUMAYA BALTAZAR Rep #: [id number] : 1975 48 From: Carolina Monterroso MD PCP: Dr. Marietta Miller MD Status:REG [facility] Location: [place] [address] HPI - General General Date of Service: 09/03/24 HPI Narrative SUMAYA BALTAZAR, is a 48 F who presents for screening colonoscopy. Patient never had previous colonoscopy. Patient denies any family history of colon cancer. Patient has bowel movements daily denies any blood. Patient denies any chronic abdominal pain/nausea/vomiting. Patient states she was diagnosed with reflux early in life about 10 years old. Patient did stop drinking alcohol recently as she is sensitive and has very few symptoms and is not on any current medication. [facility] Medical History Wears contact lenses Wears glasses Alcohol use Low iron Anemia Fatty liver Easy bruising Vertigo Dietary restriction Heartburn Gastric reflux Former smoker Asthma Genetic testing of female Abnormal pulmonary function test Anxiety Depression Home Medications ???Medication ???Instructions ???Recorded ???Last Taken ???Type bupropion HCl 300 mg 24 hr tablet, 300 mg PO DAILY 04/30/21 Unknown History extended release desvenlafaxine succinate 50 mg 50 mg PO Q24H 04/30/21 Unknown His tory tablet,extended release 24 hr dextroamphetamine-amphetamine 10 30 mg PO DAILY 08/10/23 Unknown Hi story mg tablet (Adderall) vitamin Bcomplex no.10-folic acid 1 tab PO DAILY 08/10/23 Unknown H istory ER 400 mcg tablet,extended release naltrexone 50 mg tablet 25 - 50 mg PO DAILY 08/30/24 Unkno wn History Allergy/AdvReac Type Severity Reaction Status Date / Time acetaminophen (From Percocet) Allergy Angioedema Verified 09/03/24 09:29 latex Allergy Rash Verified 09/03/24 09:29 oxycodone (From Percocet) Allergy Angioedema Verified 09/03/24 09:29 Family History Mother Thyroid disorder Breast cancer in female Father Thyroid disorder Sister No problems noted. 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 History Planned Operation Planned Operative Procedure(s): COLONOSCOPY Previous Hospitalizations/Surgeries HX Hospitalizations: No Any Problems With Anesthesia: No You/Your Family Experience Fever (Hyperthermia) With Anes: No Cholinesterase deficiency: No Cardiovascular Hx of Irregular Heartbeat and/or Afib: No Hx Heart Attack: No Hx Congestive Heart Failure: No Hx Hypertension: No Hx Pacemaker: No Respiratory Hx Chronic Obstructive Pulmonary Disease (COPD): No Hx Asthma: Yes Hx Emphysema: No Hx Sleep Apnea: No Hx Respiratory Tract Infection/Cold (presently): No Do You Snore Loudly (louder than talking or can be heard): No Do You Often Feel Tired/ Fatigued/ Sleepy Dring Daytime?: No Has Anyone Observed You Stop Breathing During Sleep?: No Result (for STOP score): Negative Hx Smoking: No Smoking Status: Former smoker Gastrointestinal Hx Ulcer: No Special diet followed at home: Yes Neurological Hx Seizures: No Hx Parkinson's Disease: No Hx Head/Neck Injury: No Hx Headaches: No Hx Back Injury/Pain: No Does patient have nerve stimulator: No Blood Disorder Hx Anemia: No Genitourinary Hx Dialysis: No Musculoskeletal Hx Arthritis: Yes Hx Rheumatoid Arthritis: No Endocrine Hx Diabetes: No Thyroid Disease: No Psycho/Social Hx Depression: Yes Hx Dementia: No Miscellaneous Hx Cancer: No Recent Exposure to Contagious Disease: No Allergies acetaminophen (From Percocet) Allergy (Verified 09/03/24 09:29) Angioedema latex Allergy (Verified 09/03/24 09:29) Rash oxycodone (From Percocet) Allergy (Verified 09/03/24 09:29) Angioedema Discharge Is Pt Admitted From a Prison, or a Snf: No Who Could Help: After D/C, Where Do you Plan to Go: Return Home Vital Signs Vital Signs Vital Signs: 09/03/24 09:29 09/03/24 09:29 Temperature 97.8 F Temperature Source Temporal Pulse Rate 82 Respiratory Rate 16 (more content not included)...[facility] 09-03-2024 Consult note [facility] Medical Records Department [address] [place] [address] Pre-Anesthesia Evaluation 09/03/24935 MR#: [id number] Acct: [id number] Name: SUMAYA BALTAZAR Rep #:[id number] : 1975 48 From: Tom Hernandez MD PCP: Dr. Marietta Miller MD Status:REG SDC Y Race: C Location: AC AC06-1 ASA Classification* ASA Classification ASA Classification: 2 Assessment & Plan Anesthesia* Anesthesia Assessment Anesthesia Assessment: Discussed sedation and/or anesthesia options, risks, benefits, and alternatives with patient/parents/legal guardian/POA. Questions invited. The patient/parents/legal guardian/POA seems to understand and agrees to proceedwith anesthesia plan. Reviewed the physical assessment, medical history, allergy history and patient home medications list prior to surgery/procedure/anesthetic and documented any changes. Performed airway and anesthesia risk assessments. Anesthesia Type Anesthesia Type: MAC Anesthesia Focused Assessment* Airway Assessment Mouth opens: >3 cm Mallampati Score: II Focused Labs Anesthesia Preop lab: CBC WBC 5.7 K/mm3 (4.4-11.0) 05/29/24 07:42 05/29/24 RBC 4.69 M/mm3 (4.2-5.4) 05/29/24 07:42 05/29/24 Hgb 12.0 g/dL (12.0-15.0) 05/29/24 07:42 05/29/24 Hct 38.4 % (37-47) 05/29/24 07:42 05/29/24 Plt Count 335 K/mm3 (150-450) 05/29/24 07:42 05/29/24 CHEMISTRY Potassium 3.6 mmol/L (3.5-5.1) 05/29/24 07:42 05/29/24 Sodium 138 mmol/L (136-145) 05/29/24 07:42 05/29/24 Magnesium 2.0 mg/dL (1.6-2.6) 01/31/20 17:30 01/31/20 BUN 10 mg/dL (7-18) 05/29/24 07:42 05/29/24 Creatinine 0.86 mg/dL (0.55-1.02) 05/29/24 07:42 05/29/24 Glucose 93 mg/dL (74-106) 05/29/24 07:42 05/29/24 TSH 3.31 uIU/mL (0.358-3.74) 04/06/21 09:19 COAG Pre-Assessment Diagnosis/Proposed Procedure Planned Operative Procedure(s): COLONOSCOPY Anesthesia History 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 When Was Last Pacemaker Check QUESTION #4 FULL TEXT: You/Your Family Experience fever (hyperthermia) with Anesthesia Last Oral Intake Last Oral intake: Last Oral Intake NPO since Meds taken in AM with sips of water? 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 trader Female Yes 08/30/24 09:59 HX of Motion Sickness No 08/30/24 09:59 HX of N/V After Surgery No 08/30/24 09:59 Non-Smoker Yes 08/30/24 09:59 Duration of Surgery greater No 08/30/24 09:59 than 60 minutes Number of Risk Factors 2 08/30/24 09:59 PONV Score Moderate Risk 08/30/24 09:59 Height & Weight Height & Weight: Anesthesia: Height & Weight Height 5 ft 4 in 08/10/23 08:19 Respiratory Assessment Respiratory Assessment - commodity trader: Respiratory Tract Infection Hx - commodity trader Hx Respiratory Tract Infection No 08/30/24 09:59 STOP Sleep Apnea STOP Sleep Apnea - commodity trader: STOP Sleep Apnea - commodity trader Hx Hypertension No 08/30/24 09:59 Hx Sleep Apnea No 08/30/24 09:59 CPAP BIPAP Do you snore loudly (louder No 08/30/24 09:59 than talking or can be heard Do you often feel tired/ No 08/30/24 09:59 fatigued/ sleepy during daytime? Has anyone observed you stop No 08/30/24 09:59 breathing during sleep? STOP Results Negative 08/30/24 09:59 QUESTION #5 FULL TEXT : Do you snore loudly (louder than talking or can be heard through closeddoors)? 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 Specify any problems Hx of Preganancy in last 3 No 08/30/24 09:59 Months Nurse Filling Out Transfusion VLEHBAYOU LA BATRE 08/30/24 09:59 & Questions: Date: 08/30/24 08/30/24 09:59 Time: 10:08 08/30/24 09:59 Patient unable to answer at this time (ie. confused, unrespo /Reproduction History /Reproductive History - commodity trader: /Reproductive Hx- commodity trader Hx Now Gestational Age (in weeks): EDC: Hx Hx Para Hx Section SAB No 08/10/23 08:19 Active Medications Active Medications: Current Medications Generic Name Dose Route Start Last Admin Trade Name Freq PRN Reason Stop Dose Admin Lactated Ringer's 1,000 mls @ 15 mls/hr 09/03/24 09:30 IV .Q48H MIR PFSH Medical History Wears contact lenses Wears glasses Alcohol use Low iron Anemia Fatty liver Easy bruising Vertigo Dietary restriction Heartburn Gastric reflux Former smoker Asthma Genetic testing of female Abnormal pulmonary function test Anxiety Depression Home Medications ?Medication ?Instructions ?Recorded ?Last Taken ?Type bupropion HCl 300 mg 24 hr tablet, 300 mg PO DAILY Unknown History extended release desvenlafaxine succinate 50 mg 50 mg PO Q24H 04/30/21 Unknown History tablet,extended release 24 hr dextroamphetamine-amphetamine 10 30 mg PO DAILY Unknown History mg tablet (Adderall) vitamin Bcomplex no.10-folic acid 1 tab PO DAILY 08/09 Unknown History ER 400 mcg tablet,extended release naltrexone 50 mg tablet 25 - 50 mg PO DAILY 08/30/24 Unknown History Allergy/AdvReac Type Severity Reaction Status Date / Time acetaminophen (From Percocet) Allergy Angioedema Verified 09/03/24 09:29 latex Allergy Rash Verified 09/03/24 09:29 oxycodone (From Percocet) Allergy Angioedema Verified 09/03/24 09:29 Family History Mother Thyroid disorder Breast cancer in female Father Thyroid disorder Sister No problems noted. 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 09/03/2436 > Date _ Tom Hernandez MD Cosigner Signature: Date CC: ~ Signed [facility]04-24-2024 NotePap Smear Specimen AdequacyApril 2023 9:44amComment.Satisfactory for evaluation. Endocervical and/or squamous metaplasticcells (endocervical component)are present.[facility] INTER[facility]ACED A#[id number] HospitalComment on above:Satisfactory for evaluation. Endocervical and/or squamous metaplasticcells (endocervical component)are present.05-21-2023 NoteHNO ID: [id number] Author: GILBERT WALL APRN.[facility] Service: ? Author Type: Nurse Practitioner Type: Progress Notes Filed: 05/21/2023 12:24 Note Text: Subjective HPI Nontoxic-appearing female presents urgent care chief plaint of left ear pain. Duration of symptoms 4 days. Associated symptoms left ear pain and slight cough. Presents today for evaluation. Most prominent symptom today is ear pain. Has not use any OTC medications. No trauma no loss hearing no otorrhea. Denies any fever body aches chills productive cough chest pain shortness of breath pleuritic pain hemoptysis nausea vomiting abdominal pain change in bowel or bladder habits. Past medical history prescription medication use and allergies reviewed. .Patient presents with: Ear Pain: left ear pressure and fullness x 4 days, cough PAST MEDICAL HISTORY Diagnosis Date Abnormal pap Abn. Pap smear (cervix) Dysthymic disorder Depression (non-psychotic) Generalized anxiety disorder anxiety/depression PAST SURGICAL HISTORY Procedure Laterality Date DELIVERY ONLY , low cervical COLPOSCOPY CERVIX UPPER/ADJACENT VAGINA 2000 mild dysplasia IUD INSERTION (BLOCK MECHANIC DEPT)_*FL 05/23/2006 MIRENA/removed TONSILLECTOMY AND ADENOIDECTOMY AGE 14/> ALLERGIES Latex, Acetaminophen, and Percocet [Oxycodone-Acetaminophen] MEDICATIONS buPROPion XL (WELLBUTRIN XL) 300 mg 24 hr tablet desvenlafaxine ER (PRISTIQ) 50 mg [address] (PROTONIX) 40 mg tablet coenzyme Q10 (COENZYME Q-10) 100 mg cap capsule Take 100 mg by mouth once daily. VITAMIN B-2 100 mg tab TAKE 4 TABLETS EVERY DAY at supper time. pyridoxine, vitamin B6, (VITAMIN B6) 100 mg tablet Pyridoxine Hcl (Vitamin B6) Active 100 MG DAILY December 26, 2019 2:11pm multivitamins(DAILY MULTIVITAMIN TAB) Take one(1) tablet daily. lisdexamfetamine (VYVANSE) 30 mg capsule venlafaxine (EFFEXOR) 25 mg tablet Take 25 mg by mouth three times daily. (Patient not taking: Reported on 07/22/2021 ) dextroamphetamine-amphetamine (ADDERALL XR) 30 mg 24 hr capsule (Patient not taking: Reported on 05/21/2023) lisdexamfetamine (VYVANSE) 40 mg capsule Take 40 mg by mouth once daily. hydrOXYzine pamoate (VISTARIL) 25 mg capsule Take 25 mg by mouth three times daily as needed. Levonorgestrel-Ethinyl Estrad (AVIANE) 0.1mg - 20mcg per tablet Take 1 tablet by mouth once daily. (Patient not taking: Reported on 06/06/2018 ) venlafaxine 75 mg tablet Take 225 mg by mouth once daily. (Patient not taking: Reported on 07/22/2021 ) ALBUTEROL 90 MCG/ACTUATION AEROSOL INHALER Inhale one(1) - two(2) puffs four(4) times a day as needed for wheezing and shortness of breath. (Patient not taking: SHAKE WELL BEFORE USING ) FAMILY HISTORY Problem Relation Age of Onset Stroke Paternal Grandfather other (fibromyalgia [Other]) Mother None Father Arthritis Mother Social History Tobacco Use Smoking status: Former Packs/day: 0.50 Years: 3.00 Additional pack years: 0.00 Total pack years: 1.50 Types: Cigarettes Smokeless tobacco: Never Tobacco comments: quit in 2001 Substance Use Topics Alcohol use: Yes Comment: occa Drug use: No BP 110/74 Pulse 112 Temp 36.1 ?C (96.9 ?F) Resp 16 Wt 82.1 kg (181 lb) LMP 04/25/2022 SpO2 97% BMI 30.83 kg/m? Hr 96 Review of Systems Constitutional: Negative for chills, fever and malaise/fatigue. HENT: Positive for ear pain. Negative for congestion, ear discharge, sinus pain and sore throat. Eyes: Negative for blurred vision, pain, discharge and redness. Respiratory: Positive for cough. Negative for hemoptysis, sputum production, shortness of breath, wheezing and stridor. Cardiovascular: Negative for chest pain. Gastrointestinal: Negative for abdominal pain, diarrhea, nausea and vomiting. Musculoskeletal: Negative for myalgias. Skin: Negative for itching and rash. Neurological: Negative for dizziness and headaches. Objective Physical Exam Constitutional: General: She is not in acute distress. Appearance: She is not diaphoretic. HENT: Head: Normocephalic. Jaw: No trismus, tenderness, swelling or pain on movement. Right Ear: Tympanic membrane, ear canal and external ear normal. Left Ear: Tympanic membrane, ear canal and external ear normal. Nose: Nose normal. Mouth/Throat: Mouth: Mucous membranes are moist. Pharynx: Oropharynx is clear. Uvula midline. No pharyngeal swelling, oropharyngeal exudate, posterior oropharyngeal erythema or uvula swelling. Eyes: Conjunctiva/sclera: Conjunctivae normal. Pupils: Pupils are equal, round, and reactive to light. Cardiovascular: Rate and Rhythm: Normal rate and regular rhythm. Heart sounds: Normal heart sounds. Pulmonary: Effort: Pulmonary effort is normal. No tachypnea, accessory muscle usage or respiratory distress. Breath sounds: Normal breath sounds. No stridor. No wheezing, rhonchi or rales. Abdominal: General: (more content not included)...[facility]02-03-2024 History of Present illness Narrative* Gilbert Wall APRN.[facility] - 05/21/2023 12:20 PM EST Subjective HPI Nontoxic-appearing female presents urgent care chief plaint of left ear pain. Duration of symptoms 4 days. Associated symptoms left ear pain and slight cough. Presents today for evaluation. Most prominent symptom today is ear pain. Has not use any OTC medications. No trauma no loss hearing no otorrhea. Denies any fever body aches chills productive cough chest pain shortness of breath pleuritic pain hemoptysis nausea vomiting abdominal pain change in bowel or bladder habits. Past medical historyprescription medication use and allergies reviewed. .Patient presents with: Ear Pain: left ear pressure and fullness x 4 days, cough PAST MEDICAL HISTORY Diagnosis Date Abnormal pap Abn. Pap smear (cervix) Dysthymic disorder Depression (non-psychotic) Generalized anxiety disorder anxiety/depression PAST SURGICAL HISTORY Procedure Laterality Date DELIVERY ONLY , low cervical COLPOSCOPY CERVIX UPPER/ADJACENT VAGINA 2000 mild dysplasia IUD INSERTION (BLOCK MECHANIC DEPT)_*FL 05/23/2006 MIRENA/removed TONSILLECTOMY & ADENOIDECTOMY AGE 14/> ALLERGIES Latex, Acetaminophen, and Percocet [Oxycodone-Acetaminophen] MEDICATIONS buPROPion XL (WELLBUTRIN XL) 300 mg 24 hr tablet desvenlafaxine ER (PRISTIQ) 50 mg [address] (PROTONIX) 40 mg tablet coenzyme Q10 (COENZYME Q-10) 100 mg cap capsule Take 100 mg by mouth once daily. VITAMIN B-2 100 mg tab TAKE 4 TABLETS EVERY DAY at supper time. pyridoxine, vitamin B6, (VITAMIN B6) 100 mg tablet Pyridoxine Hcl (Vitamin B6) Active 100 MG DAILY December 26, 2019 2:11pm multivitamins(DAILY MULTIVITAMIN TAB) Take one(1) tablet daily. lisdexamfetamine (VYVANSE) 30 mg capsule venlafaxine (EFFEXOR) 25 mg tablet Take 25 mg by mouth three times daily. (Patient not taking: Reported on 07/22/2021 ) dextroamphetamine-amphetamine (ADDERALL XR) 30 mg 24 hr capsule (Patient not taking: Reported on 05/21/2023) lisdexamfetamine (VYVANSE) 40 mg capsule Take 40 mg by mouth once daily. hydrOXYzine pamoate (VISTARIL) 25 mg capsule Take 25 mg by mouth three times daily as needed. Levonorgestrel-Ethinyl Estrad (AVIANE) 0.1mg - 20mcg per tablet Take 1 tablet by mouth once daily. (Patient not taking: Reported on 06/06/2018 ) venlafaxine 75 mg tablet Take 225 mg by mouth once daily. (Patient not taking: Reported on 07/22/2021 ) ALBUTEROL 90 MCG/ACTUATION AEROSOL INHALER Inhale one(1) - two(2) puffs four(4) times a day as needed for wheezing and shortness of breath. (Patient not taking: SHAKE WELL BEFORE USING ) FAMILY HISTORY Problem Relation Age of Onset Stroke Paternal Grandfather other (fibromyalgia [Other]) Mother None Father Arthritis Mother Social History Tobacco Use Smoking status: Former Packs/day: 0.50 Years: 3.00 Additional pack years: 0.00 Total pack years: 1.50 Types: Cigarettes Smokeless tobacco: Never Tobacco comments: quit in 2001 Substance Use Topics Alcohol use: Yes Comment: occa Drug use: No BP 110/74 Pulse 112 Temp 36.1 C (96.9 F) Resp 16 Wt 82.1 kg (181 lb) LMP 04/25/2022 SpO2 97% BMI 30.83 kg/m Hr 96 Review of Systems Constitutional: Negative for chills, fever and malaise/fatigue. HENT: Positive for ear pain. Negative for congestion, ear discharge, sinus pain and sore throat. Eyes: Negative for blurred vision, pain, discharge and redness. Respiratory: Positive for cough. Negative for hemoptysis, sputum production, shortness of breath, wheezing and stridor. Cardiovascular: Negative for chest pain. Gastrointestinal: Negative for abdominal pain, diarrhea, nausea and vomiting. Musculoskeletal: Negative for myalgias. Skin: Negative for itching and rash. Neurological: Negative for dizziness and headaches. Objective Physical Exam Constitutional: General: She is not in acute distress. Appearance: She is not diaphoretic. HENT: Head: Normocephalic. Jaw: No trismus, tenderness, swelling or pain on movement. Right Ear: Tympanic membrane, ear canal and external ear normal. Left Ear: Tympanic membrane, ear canal and external ear normal. Nose: Nose normal. Mouth/Throat: Mouth: Mucous membranes are moist. Pharynx: Oropharynx is clear. Uvula midline. No pharyngeal swelling, oropharyngeal exudate, posterior oropharyngeal erythema or uvula swelling. Eyes: Conjunctiva/sclera: Conjunctivae normal. Pupils: Pupils are equal, round, and reactive to light. Cardiovascular: Rate and Rhythm: Normal rate and regular rhythm. Heart sounds: Normal heart sounds. Pulmonary: Effort: Pulmonary effort is normal. No tachypnea, accessory muscle usage or respiratory distress. Breath sounds: Normal breath sounds. No stridor. No wheezing, rhonchi or rales. Abdominal: General: There is no distension. Palpations: Abdomen is soft. Tenderness: There is no abdominal tenderness. There is no guarding or rebound. Musculoskeletal: Cervical back: Normal range of motion and neck supple. No edema, erythema, rigidity or tenderness. No pain with movement. Normal range of motion. Lymphadenopathy: Cervical: No cervical adenopathy. Skin: General: Skin is warm and dry. Neurological: Mental Status: She is alert and oriented to person, place, and time. ASSESSMENT/PLAN: 1. Otalgia, left - ICD9: 388.70, ICD10: H92.02 Diagnosis otalgia left ear. Ear exam unremarkable. No otorrhea external erythema edema noted. No evidence of adenopathy. No rashes. Diagnosed with otalgia. Treat conservatively at this point. Patient was educated on supportive therapies. Patient will follow up with primary care provider as needed. Patient was instructed to immediately proceed to emergency room for any new, worsening, or symptoms lasting longer than anticipated. The patient's clinical presentation is otherwise unremarkable at this time. Based on exam and clinical finding, the patient is stable for discharge. Plan of care was discussed with patient. Patient verbalizes understanding and agrees to plan of care. This note was generated using [employer] software. It may contain errors in wording, punctuation, or spelling. Gilbert Wall APRN.[facility] documented in [facility]23 NoteHNO ID: [id number] Author: Darline Mendez APRN.CNP Service: ? Author Type: Nurse Practitioner Type: Progress Notes Filed: 06/04/2022 6:15 PM Note Text: CC: Patient presents with: Pain, Throat: Pt reported + strep exposure, throat pain, onset AM. HPI: Sumaya Baltazar is a 46 year old female who presents to the office with above complaint Symptoms began yesterday and include: Fever (?100.4F): No or Chills: Yes Cough: Yes Shortness of breath: Yes Fatigue: Yes Muscle aches: No Headache: Yes New loss of smell or taste: No Sore throat: Yes Nasal congestion: Yes or Rhinorrhea: Yes Nausea: No or Vomiting: No Diarrhea: No Other Associated symptoms: ear pressure . OTC meds/remedies that patient has tried: OTC cold medicine. Exposures: Sick contacts? Yes daughter had strep Family or close contacts with confirmed/probable COVID-19 in last 14 days? No COVID vaccine: yes The ROS is otherwise negative. The patient's pmh, medications, allergies, and past visits are reviewed. PHYSICAL EXAM: BP 130/76 Pulse 106 Temp 36.9 ?C (98.5 ?F) (Tympanic) Resp 18 Wt 84.4 kg (186 lb) LMP 04/25/2022 SpO2 99% BMI 31.68 kg/m? General appearance: tired/ill appearing, alert, cooperative, pleasant, in no acute distress Head: Normocephalic Eyes: conjunctiva pink and moist, no icterus, sclera white, non-injected Ears: Right ear: External ear/canal- Normal, TM - clear with good landmarks. Left ear: External ear/canal- Normal, TM - clear with good landmarks Nose: clear. Oropharynx:no erythema, evidence of previous tonsilectomy Neck:supple and positive findings: few small anterior cervical nodes Heart: Negative. RRR without obvious murmur, gallop, or rubs. No ectopy. Lungs: clear to auscultation, without rales or wheeze, good air exchange ASSESSMENT/PLAN: 1. Viral URI with cough - ICD9: 465.9, ICD10: J06.9 (primary diagnosis) - Meets symptom-based criteria for testing and is high risk. - COVID swab collected at time of office visit - Instructed to isolate pending test results - Discussed symptom monitoring and supportive care - Red flag symptoms requiring follow up discussed - COVID WITH FLUA+B, ROUTINE 2. Throat pain - ICD9: 784.1, ICD10: R07.0 As above - STREP A MOLECULAR (POC) 3. Streptococcus exposure - ICD9: V01.89, ICD10: Z20.818 As above - STREP A MOLECULAR (POC) Prescription instructions reviewed with patient as applicable. Potential red flag symptoms discussed with the patient. Reviewed appropriate action plan to take if red flag symptoms occur. Patient agreeable to treatment plan. Darline Mendez APRN.[facility]02-17-2023 History of Present illness Narrative* Darline Mendez APRN.ACTIVITY DIRECTOR - 06/04/2022 5:43 PM EST CC: Patient presents with: Pain, Throat: Pt reported + strep exposure, throat pain, onset AM. HPI: Sumaya Baltazar is a 46 year old female who presents to the office with above complaint Symptoms began yesterday and include: Fever (?100.4F): No or Chills: Yes Cough: Yes Shortness of breath: Yes Fatigue: Yes Muscle aches: No Headache: Yes New loss of smell or taste: No Sore throat: Yes Nasal congestion: Yes or Rhinorrhea: Yes Nausea: No or Vomiting: No Diarrhea: No Other Associated symptoms: ear pressure . OTC meds/remedies that patient has tried: OTC cold medicine. Exposures: Sick contacts? Yes daughter had strep Family or close contacts with confirmed/probable COVID-19 in last 14 days? No COVID vaccine: yes The ROS is otherwise negative. The patient's pmh, medications, allergies, and past visits are reviewed. PHYSICAL EXAM: BP 130/76 Pulse 106 Temp 36.9 C (98.5 F) (Tympanic) Resp 18 Wt 84.4 kg (186 lb) LMP 04/25/2022 SpO2 99% BMI 31.68 kg/m General appearance: tired/ill appearing, alert, cooperative, pleasant, in no acute distress Head: Normocephalic Eyes: conjunctiva pink and moist, no icterus, sclera white, non-injected Ears: Right ear: External ear/canal- Normal, TM - clear with good landmarks. Left ear: External ear/canal- Normal, TM - clear with good landmarks Nose: clear. Oropharynx:no erythema, evidence of previous tonsilectomy Neck:supple and positive findings: few small anterior cervical nodes Heart: Negative. RRR without obvious murmur, gallop, or rubs. No ectopy. Lungs: clear to auscultation, without rales or wheeze, good air exchange ASSESSMENT/PLAN: 1. Viral URI with cough - ICD9: 465.9, ICD10: J06.9 (primary diagnosis) - Meets symptom-based criteria for testing and is high risk. - COVID swab collected at time of office visit - Instructed to isolate pending test results - Discussed symptom monitoring and supportive care - Red flag symptoms requiring follow up discussed - COVID WITH FLUA+B, ROUTINE 2. Throat pain - ICD9: 784.1, ICD10: R07.0 As above - STREP A MOLECULAR (POC) 3. Streptococcus exposure - ICD9: V01.89, ICD10: Z20.818 As above - STREP A MOLECULAR (POC) Prescription instructions reviewed with patient as applicable. Potential red flag symptoms discussed with the patient. Reviewed appropriate action plan to take if red flag symptoms occur. Patient agreeable to treatment plan. Darline Mendez APRN.CNP documented in this encounterChildren[facility] History of Present illness Narrative* Darlin Woo APRN.CNP - 08/20/2021 5:44 PM EDT CC: Patient presents with: Cough: Pt denied SOB, chest pain Sore Throat: pain rated 3, x2 days HPI: Sumaya Baltazar is a 45 year old female who presents to the office with complaint of head congestion, sore throat and chills for a few days. Symptoms are worsening Associated symptoms includes fatigue. Denies nausea, vomiting and diarrhea. Treatments tried include nothing so far. with no relief of symptoms. Sick contacts: yes. History of asthma, frequent episodes of bronchitis, chronic bronchitis, bronchiectasis or COPD: No Smoker: No Seasonal/environmental allergies: No The ROS is otherwise negative. The patient's pmh, medications, allergies, and past visits are reviewed. PHYSICAL EXAM: BP 128/82 Pulse 103 Temp 36.5 C (97.7 F) Resp 18 Wt 82.4 kg (181 lb 9.6 oz) LMP 08/07/2021 SpO2 99% BMI 30.93 kg/m General appearance: alert, cooperative, pleasant, in no acute distress Head: Normocephalic Eyes: EOM's intact, conjunctiva pink and moist, no icterus, sclera white, non-injected Ears: Right ear: External ear/canal- Normal, TM - clear with good landmarks. Left ear: External ear/canal- Normal, TM - clear with good landmarks Oropharynx:moist without lesions, No erythema, exudates or tonsillar hypertrophy. Heart: Negative. RRR without obvious murmur, gallop, or rubs. No ectopy. Lungs: clear to auscultation, without rales or wheeze, good air exchange PAST MEDICAL HISTORY Diagnosis Date Abnormal pap Abn. Pap smear (cervix) Dysthymic disorder Depression (non-psychotic) Generalized anxiety disorder anxiety/depression PAST SURGICAL HISTORY Procedure Laterality Date DELIVERY ONLY , low cervical COLPOSCOPY CERVIX UPPER/ADJACENT VAGINA 2000 mild dysplasia IUD INSERTION (BLOCK MECHANIC DEPT)_*FL 05/23/2006 MIRENA/removed TONSILLECTOMY & ADENOIDECTOMY AGE 14/> ALLERGIES Latex and Percocet [Oxycodone-Acetaminophen] MEDICATIONS buPROPion XL (WELLBUTRIN XL) 300 mg 24 hr tablet desvenlafaxine ER (PRISTIQ) 50 mg [address] (PROTONIX) 40 mg tablet coenzyme Q10 (COENZYME Q-10) 100 mg cap capsule Take 100 mg by mouth once daily. VITAMIN B-2 100 mg tab TAKE 4 TABLETS EVERY DAY at supper time. pyridoxine, vitamin B6, (VITAMIN B6) 100 mg tablet Pyridoxine Hcl (Vitamin B6) Active 100 MG DAILY December 26, 2019 2:11pm dextroamphetamine-amphetamine (ADDERALL XR) 30 mg 24 hr capsule multivitamins(DAILY MULTIVITAMIN TAB) Take one(1) tablet daily. venlafaxine (EFFEXOR) 25 mg tablet Take 25 mg by mouth three times daily. lisdexamfetamine (VYVANSE) 40 mg capsule Take 40 [...] needed for wheezing and shortness of breath. FAMILY HISTORY Problem Relation Age of Onset Stroke Paternal Grandfather other (fibromyalgia [Other]) Mother None Father Arthritis Mother Social History Tobacco Use Smoking status: Former Smoker Packs/day: 0.50 Years: 3.00 Pack years: 1.50 Types: Cigarettes Smokeless tobacco: Never Used Tobacco comment: quit in 2001 Substance Use Topics Alcohol use: Yes Comment: occa Drug use: No ASSESSMENT/PLAN: 1. Sinus congestion - ICD9: 478.19, ICD10: R09.81 Waiting on covid test. Prescription instructions reviewed with patient as applicable. Potential red flag symptoms discussed with the patient. Reviewed appropriate action plan to take if red flag symptoms occur. Patient agreeable to treatment plan. Darlin Woo APRN.[place] documented in this encounterChildren'[facility]04-07-2022 Miscellaneous Notes* Telephone Encounter - Hollie Oh LPN - 07/23/2021 9:02 AM EDT Patient notified.Hollie Oh LPN * Telephone Encounter - Leon Moody APRN.CNP - 07/23/2021 7:41 AM EDT Please notify that covid/flu testing negative. Continue with plan of care as discussed during visit. documented in this encounterChildren'[facility]04-06-2022 Instructions* Patient Instructions* Gilbert Wall APRN.CNP - 07/22/2021 10:23 AM EDT How to Manage Common Symptoms Associated with COVID for Adults Fever- Fever is a temperature over 100.4 F and can occur when the body is fighting an infection. Tohelp treat a fever: Drink plenty of fluids and stay well hydrated. Eat small amounts of easy to digest food. Rest. Your body needs rest to recover, but getting up and moving around the house frequently is a good idea. You should try to continue doing your normal daily activities (bathing, toileting, grooming, cooking), though you will probably feel tired, and need to rest often. Avoid any heavy activity or exercise, as this will increase your body temperature. Dress in light clothing and stay covered in a light sheet. Keep the room temperature cool. Take a slightly warm (not cold or cool) bath, or apply damp washcloths to the forehead and wrists. Cough- Cough is a common symptom associated with COVID and can be bothersome. To help treat a cough: Stay well hydrated. Try warm water or tea with lemon and/or honey to help soothe the cough. Use a humidifier to add moisture to the air. Try a product with menthol, like a cough drop or a rub for your chest such as Vicks, which can helpreduce cough. Try cough drops. Avoid smoking and other strong odors or perfumes. Try breathing exercises to keep your lungs open and clear. Take a big deep breath through your noseand hold for 5 seconds before slowly releasing. Repeat frequently, while you are awake. Congestion- Runny nose or nasal congestion can occur with COVID. Treatment can help relieve symptoms: Try OTC nasal saline spray, or nasal saline rinse to relieve mucus congestion. Nasal strips can help keep nasal passages open, to increase airflow. Elevating your head with an extra pillow in bed can help reduce congestion. Using a humidifier can increase moisture in the air, and make breathing easier. Sore Throat- Another common symptom with COVID, can be managed at home by: Stay well hydrated. Gargle with salt water mix teaspoon salt with 1 cup of warm water and gargle. This helps to loosen mucus in the back of the throat and may reduce discomfort. Try ice chips, popsicles or lozenges to soothe the throat. Nausea/Vomiting/Diarrhea- These are common symptoms, and staying hydrated is most important. If you are nauseous or vomiting, start with small sips of water every 10-15 minutes and increase astolerated. You can try sucking an ice cube too. If tolerating, you can try pedialyte or Gatorade, or flat sprite or king-rodolfo. Start slowly and increase as you are able to. Instead of meals, try smaller, more frequent snacks. Try eating bland foods like crackers, toast, rice, and applesauce. Avoid spicy, greasy or fried foods and dairy containing foods. Even if you aren't feeling hungry due to lack of smell or taste, it is important to try to take in some food when you are able. After drinking and eating, rest in an upright position for up to two hours as needed to help decrease nauseous feelings. Try closing your eyes, avoid moving and watching TV. Avoid strong odors that can make you feel more nauseated. When to seek emergency medical attention Look for emergency warning signs for COVID-19. If having any of these symptoms, seek emergency medical care immediately: Trouble breathing Persistent pain or pressure in the chest New confusion Inability to wake or stay awake Bluish lips or face *This list is not all possible symptoms. Please call your medical provider for any other symptoms that are severe or concerning to you. documented in this encounterChildren'[facility]04-06-2022 History of Present illness Narrative* Gilbert Wall APRN.CNP - 07/22/2021 10:13 AM EDT Subjective HPI Nontoxic or female presents urgent care chief plaint headache fatigue. Duration of symptoms 3 days.Associated symptoms headache fatigue nasal congestion cough transient dizziness. Patient states shebecomes dizzy if she stands up quickly. Denies any syncopal episodes or passing out. States daughter has similar signs symptoms. Her started 2 days prior to patient's symptoms. Denies any OTC medication use. States feeling okay today. Denies any pain. Denies any fever body aches chills productive cough chest pain shortness of breath pleuritic pain hemoptysis vomiting or change in bowel or bladderhabits. Past medical history prescription medication use allergies reviewed. .Patient presents with: Headache: fatigue, nausea and dizziness x 3 days PAST MEDICAL HISTORY Diagnosis Date Abnormal pap Abn. Pap smear (cervix) Dysthymic disorder Depression (non-psychotic) Generalized anxiety disorder anxiety/depression PAST SURGICAL HISTORY Procedure Laterality Date DELIVERY ONLY , low cervical COLPOSCOPY CERVIX UPPER/ADJACENT VAGINA 2000 mild dysplasia IUD INSERTION (BLOCK MECHANIC DEPT)_*FL 05/23/2006 MIRENA/removed TONSILLECTOMY & ADENOIDECTOMY AGE 14/> ALLERGIES Latex and Percocet [Oxycodone-Acetaminophen] MEDICATIONS pyridoxine, vitamin B6, (VITAMIN B6) 100 mg tablet Pyridoxine Hcl (Vitamin B6) Active 100 MG DAILY December 26, 2019 2:11pm dextroamphetamine-amphetamine (ADDERALL XR) 30 mg 24 hr capsule multivitamins(DAILY MULTIVITAMIN TAB) Take one(1) tablet daily. buPROPion XL (WELLBUTRIN XL) 300 mg 24 hr tablet desvenlafaxine ER (PRISTIQ) 50 mg [address] (PROTONIX) 40 mg tablet coenzyme Q10 (COENZYME Q-10) 100 mg cap capsule Take 100 mg by mouth once daily. VITAMIN B-2 100 mg tab TAKE 4 TABLETS EVERY DAY at supper time. venlafaxine (EFFEXOR) 25 mg tablet Take 25 mg by mouth three times daily. lisdexamfetamine (VYVANSE) 40 mg capsule Take 40 [...] needed for wheezing and shortness of breath. FAMILY HISTORY Problem Relation Age of Onset Stroke Paternal Grandfather other (fibromyalgia [Other]) Mother None Father Arthritis Mother Social History Tobacco Use Smoking status: Former Smoker Packs/day: 0.50 Years: 3.00 Pack years: 1.50 Types: Cigarettes Smokeless tobacco: Never Used Tobacco comment: quit in 2001 Substance Use Topics Alcohol use: Yes Comment: occa Drug use: No BP 122/80 Pulse 94 Temp 37.1 C (98.7 F) Resp 16 Wt 81.6 kg (180 lb) LMP 05/23/2017 VvI818% BMI 30.66 kg/m Review of Systems Constitutional: Positive for malaise/fatigue. Negative for chills and fever. HENT: Positive for congestion. Negative for ear discharge, ear pain, sinus pain and sore throat. Eyes: Negative for blurred vision, pain, discharge and redness. Respiratory: Positive for cough. Negative for hemoptysis, sputum production, shortness of breath, wheezing and stridor. Cardiovascular: Negative for chest pain. Gastrointestinal: Positive for nausea. Negative for abdominal pain, diarrhea and vomiting. Musculoskeletal: Positive for myalgias. Skin: Negative for itching and rash. Neurological: Positive for dizziness and headaches. Objective Physical Exam Vitals and nursing note reviewed. Constitutional: General: She is not in acute distress. Appearance: She is not diaphoretic. HENT: Head: Normocephalic and atraumatic. Jaw: No trismus. Right Ear: Hearing, tympanic membrane, ear canal and external ear normal. No decreased hearing noted. No drainage, swelling or tenderness. No mastoid tenderness. Tympanic membrane is not perforated, erythematous or bulging. Left Ear: Hearing, tympanic membrane, ear canal and external ear normal. No decreased hearing noted. No drainage, swelling or tenderness. No mastoid tenderness. Tympanic membrane is not perforated, erythematous or bulging. Ears: Comments: Clear fluid behind bilateral TMs b/l noted Mouth/Throat: Lips: [place]. Mouth: Mucous membranes are moist. Pharynx: Oropharynx is clear. Uvula midline. No pharyngeal swelling, oropharyngeal exudate, posterior oropharyngeal erythema or uvula swelling. Tonsils: No tonsillar exudate or tonsillar abscesses. Eyes: General: Right eye: No discharge. Left eye: No discharge. Conjunctiva/sclera: Conjunctivae normal. Pupils: Pupils are equal, round, and reactive to light. Cardiovascular: Rate and Rhythm: Normal rate and regular rhythm. Heart sounds: Normal heart sounds. Pulmonary: Effort: Pulmonary effort is normal. No respiratory distress. Breath sounds: Normal breath sounds. No stridor. No wheezing, rhonchi or rales. Chest: Chest wall: No tenderness. Abdominal: Palpations: Abdomen is soft. Tenderness: There is no abdominal tenderness. Musculoskeletal: General: No tenderness. Normal range of motion. Cervical back: Normal range of motion and neck supple. Lymphadenopathy: Head: Right side of head: No submental, submandibular, tonsillar, preauricular, posterior auricular or occipital adenopathy. Left side of head: No submental, submandibular, tonsillar, preauricular, posterior auricular or occipital adenopathy. Cervical: No cervical adenopathy. Right cervical: No superficial or posterior cervical adenopathy. Left cervical: No superficial or posterior cervical adenopathy. Skin: General: Skin is warm and dry. Findings: No rash. Neurological: Mental Status: She is alert and oriented to person, place, and time. ASSESSMENT/PLAN: 1. Viral illness - ICD9: 079.99, ICD10: B34.9 - COVID WITH FLUA+B, ROUTINE Patient diagnosed with viral URI. COVID-19 influenza test ordered. Results pending alternative diagnosis discussed. Patient was educated on supportive therapies. Patient will follow up with primary care provider as needed. Patient was instructed to immediately proceed to emergency room for any new, worsening, or symptoms lasting longer than anticipated. The patient's clinical presentation is otherwise unremarkable at this time. Based on exam and clinical finding, the patient is stable for discharge. Plan of care was discussed with patient. Patient verbalizes understanding and agrees to plan of care. This note was generated using [employer] software. It may contain errors in wording, punctuation, or spelling. Gilbert Wall APRN.[place] documented in this encounterChildren'[facility]-2007 History of Past illness Narrative* Problem Noted Date Resolved Date Encounter for insertion or r emoval of intrauterine contraceptive device 05/23/2006 08/12/2010 documented as of this encounter (statuses as of 07/22/2021) [address]05-2007 History of Past illness Narrative* Problem Noted Date Resolved Date Encounter for insertion or r emoval of intrauterine contraceptive device 05/23/2006 08/12/2010 documented as of this encounter (statuses as of 07/23/2021) [address]05-2007 History of Past illness Narrative* Problem Noted Date Resolved Date Encounter for insertion or r emoval of intrauterine contraceptive device 05/23/2006 08/12/2010 documented as of this encounter (statuses as of 08/20/2021) [address]05-2007 History of Past illness Narrative* Problem Noted Date Resolved Date Encounter for insertion or r emoval of intrauterine contraceptive device 05/23/2006 08/12/2010 documented as of this encounter (statuses as of 06/05/2022) [address]05-2007 History of Past illness Narrative* Problem Noted Date Diagnosed Date Resolved Date Encounter for insertion or r emoval of intrauterine contraceptive device 05/23/20062010 documented as of this encounter (statuses as of 05/21/2023) [facility]ult [facility] Author Jah Buckley [facility] Note Date/Time September 03, 2024 12:33 pm [facility] Medical Records Department [address] [place] [id number] Anesthesia Postop Eval I 09/03/24 1232 MR#: [id number] Acct: [id number] Name: SUMAYA BALTAZAR Rep #:[id number] 93 : 1975 48 From: Jah CHAUHAN PCP: Dr. Marietta Miller MD Status:REG SDC Y Race: C Location: [place] [address] Anesthesia: Postop Eval I Current Vital Signs Temperature: 97.2 F Pulse Rate: 77 Blood Pressure: 100/71 Respiratory Rate: 16 Pulse Ox: 98 Oxygen Delivery Method: Room Air Assessment Airway patent: Yes Spontaneous unlabored respirations: Yes Mental status: Awake nausea: No Vomiting: No Anesthesia Complication: No Fluid Hydration Crystalloid volume administer (ml): 400 Total IV fluid infused: 400 Progress Note Anesthesia document: Postop Eval 1 completed: Yes 09/03/24 1233 <Electronically signed by Jah Buckley CRNA> Date _ Jah Buckley CRNA Cosigner Signature: Date CC: ~ Signed [facility] Work Phone: Consult note Author Tom Hernandez [facility] Note Date/Time September 03, 2024 1:11p [facility] Medical Records Department [address] [place] [id number] Anesthesia Postop Eval II 09/03/24 1304 MR#: [id number] Acct: [id number] Name: SUMAYA BALTAZAR Rep #:[id number] : 1975 48 From: Tom Hernandez MD PCP: Dr. Marietta Miller MD Status:REG [facility] Y Race: C Location: [address] Anesthesia Postop Eval I Sum Postop Eval Completion status Anesthesia document: Postop Eval 1 completed: Yes Anesthesia Postop Eval I Summary Anesthesia Postop Eval I Summary: Anesthesia Postop Eval I: Assessment Summary Airway patent Yes 09/03/24 12:33 QC LAB [email or web address] Spontaneous unlabored Yes 09/03/24 12:33 QC LAB [email or web address] respirations Mental status Awake 09/03/24 12:33 QC LAB [email or web address] nausea No 09/03/24 12:33 QC LAB TECHNICIAN.SOBR Vomiting No 09/03/24 12:33 QC LAB [email or web address] Anesthesia Postop Eval I: Fluid Summary Crystalloid volume administer 400 09/03/24 12:33 QC LAB [email or web address].SOBR (ml) Colloids volume administered ( ml) Blood Product volume administered (ml) Total IV fluid infused 400 09/03/24 12:33 QC LAB [email or web address] Anesthesia Postop Eval I: Summary Notes Anesthesia Complication No 09/03/24 12:33 QC LAB [email or web address] Anesthesia Complication Comment: Post-operative progress note Anesthesia: Postop Eval II Evaluation Mental status: Awake Pain Level: 0 nausea: No Vomiting: No 09/03/24 1304 <Electronically signed by Tom Hernandez MD > Date _ Tom Hernandez MD Cosigner Signature: Date CC: ~ Signed [facility] Work Phone: Evaluation + Plan note No data available for this section [facility] Evaluation note* Diagnosis Viral illness- Primary Unspecified viral infection, in conditions classified elsewhere and of unspecified site [facility] encounter [facility]* Diagnosis Sinus congestion- Primary Other diseases of nasal cavity and sinuses Suspected COVID-19 virus infection documented in this encounter [facility] ColumbusEvaluation noteNo assessment information availableWBrecksville [facility] Work Phone: Evaluation note* Diagnosis Viral URI with cough- Primary Acute upper respiratory infections of unspecified site Throat pain Streptococcus exposure Contact with or exposure to other communicable diseases documented in this encounter [facility]* Diagnosis Otalgia, left- Primary documented in this encounter [facility]* Diagnosis Onset Date Resolution Status Encounter for routine gynecological examination noneactive [facility] Work Phone: Evaluation note* Diagnosis Acute cough documented in this encounter [facility] Dis[facility] instructionsAmbulatory Orders* General Surgery Location: None Selected [facility] Work Phone: Hospital Discharge instructions No data available for this section [facility] Progress note No data available for this section [facility] Reason for referral (narrative)No reason for referral information availableWBrecksville [facility] Work Phone: Health Concerns Infection Onset Date Last Indicated Resolved Time COVID-19 Rule-Out 08/20/2021 08/20/2021 Infection Onset Date Last Indicated Resolved Time COVID-19 Rule-Out 06/04/2022 06/04/2022 Chief Complaint and Reason for Visit Chief Complaint RUQ PAIN Chief Complaint SCREENING Chief Complaint RUQ PAIN RUQ PAIN Chief Complaint SCREENING Chief Complaint 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) Reason for Visit Encounter for routin e gynecological examination Reason for Visit Admit Date Screening for colon cancer September 03 9:13am Family History No Family History Records Found Relationship Condition Age at Onset Recorded Date/T isiah mother Disorder of thyroid Unknown Malignant neoplasm of female breast Unkno wn father Disorder of thyroid Unknown Advance Directives No Advanced Directives Records Found Advance Directive Response Recorded Date/ Time Living Will No January 30 5:37pm Power of Media Analyst No January 31, 2020 5:37pm Advance Directive Response Recorded Date/ Time Living Will No January 30 4:37pm Power of Media Analyst No January 31, 2020 4:37pm Advance Directive Response Recorded Date/ Time Do you have a Healthcare Power of Media Analyst? Yes August 30, 2024 9:59am Summary Purpose Additional Source Comments Source Comments (unrecognize d section and content) In the event this informatio n is protected by the Federal Confidentiality of Alcohol and Drug Abuse Patient Records regulations: The Federal rules restrict any use of the information to criminally investigate or prosecute any alcohol or drug abuse patient.[facility] ColumbusIn the event this information is protected by the Federal Confidentiality of Alcohol and Drug Abuse Patient Records regulations: The Federal rules restrict any use of the information to criminally investigate or prosecute any alcohol or drug abuse patient.[facility] Columbus[facility] the event this information is protected by the Federal Confidentiality of Alcohol and Drug Abuse Patient Records regulations: The Federal rules restrict any use of the information to criminally investigate or prosecute any alcohol or drug abuse patient.[facility] ColumbusIn the event this information is protected by the Federal Confidentiality of Alcohol and Drug Abuse Patient Records regulations: The Federal rules restrict any use of the information to criminally investigate or prosecute any alcohol or drug abuse patient.[facility] ColumbusIn the event this information is protected by the Federal Confidentiality of Alcohol and Drug Abuse Patient Records regulations: The Federal rules restrict any use of the information to criminally investigate or prosecute any alcohol or drug abuse patient.[facility] ColumbusIn the event this information is protected by the Federal Confidentiality of Alcohol and Drug Abuse Patient Records regulations: The Federal rules restrict any use of the information to criminally investigate or prosecute any alcohol or drug abuse patient.[facility] Reason for Visit (unrecogniz ed section and content) Reason Comments Headache fatigue, nausea and dizziness x 3 days Reason Comments Results Reason Comments Cough Pt denied SOB, chest pain Sore Throat pain rated 3, x2 day s Reason Comments Pain, Throat Pt reported + strep exposure, throat pain, onset AM. Reason Comments Ear Pain left ear pressure an d fullness x 4 days, cough Care Teams (unrecognized sec tion and content) Box Puller Relationship Specialty Start Date End Date Marietta Miller MD PCP - General Family Practice 09/21/16 Box Puller Relationship Specialty Start Date End Date Marietta Miller MD PCP - General Family Practice 09/21/16 Box Puller Relationship Specialty Start Date End Date Marietta Miller MD PCP - General Family Practice 09/21/16 Box Puller Relationship Specialty Start Date End Date Marietta Miller MD PCP - General Family Medicine 09/21/16 Team Status: Active Member Role Status Dates Dr. Marietta Miller MD Family Provider Active Dr. Marietta Miller MD Primary Care Provider Active Team Status: Inactive Member Role Status Dates Dr. Marietta Miller MD Primary Care Provider Active Solange Reid NP, [employer]ER-C Attending Provider Active Team Status: Inactive Member Role Status Dates Dr. Marietta Miller MD Primary Care Provider, Attending Melva quintanilla Active Team Status: Inactive Member Role Status Dates Dr. Marietta Miller MD Primary Care Provide r, Attending Provider, Referring Provider Active Box Puller Relationship Specialty Start Date End Date Marietta Miller MD PCP - General Family Medicine 09/21/16 Team Status: Inactive Member Role Status Dates Dr. Marietta Miller MD Primary Care Provider Active Solange Reid [employer] INSTALLER, [employer] INST[employer]ER-C Attending Provider, Referring Provider Active Team Status: Inactive Member Role Status Dates Dr. Marietta Miller MD Primary Care Provider, Referring P rovider Active Solange Reid [employer] INSTALLER, [employer] INSTALLER-C Attending Provider Active Box Puller Relationship Specialty Start Date End Date Marietta Miller MD PCP - General Family Medicine 09/21/16 Team Status: Active Member Role Status Dates Dr. Marietta Miller MD Primary Care Provider Active Team Status: Active Member Role Status Dates Dr. Marietta Miller MD Primary Care Provider Active Start: May 29, 2024 Health Risk Assessment Attending Provider Active Start: May 29, 2024 Team Status: Inactive Member Role Status Dates Dr. Marietta Miller MD Primary Care Provider Active Start: September 03, 2024 End: September 03, 2024 Dr. Marietta Miller MD Referring Provider Active St art: September 03, 2024 End: September 03, 2024 Dr. Carolina Monterroso MD Attending Provider Active Start: September 03, 2024 End: September 03, 2024 Team Status: Active Member Role Status Dates Dr. Marietta Miller MD Primary Care Provider Active Start: September 03, 2024 Dr. Marietta Miller MD Referring Provider Active St art: September 03, 2024 Dr. Carolina Monterroso MD Attending Provider Active Start: September 03, 2024 Dr. Carolina Monterroso MD Other Provider Active S tart: September 03, 2024 Team Status: Active Member Role/Relationship Status Dates Dr. Marietta Miller MD Primary Care Provider Active Team Status: Inactive Member Role/Relationship Status Dates Dr. Marietta Miller MD Primary Care Provider Active Start: September 03, 2024 End: September 03, 2024 Dr. Marietta Miller MD Referring Provider Active St art: September 03, 2024 End: September 03, 2024 Dr. Carolina Monterroso MD Attending Provider Active Start: September 03, 2024 End: September 03, 2024 Team Status: Active Member Role/Relationship Status Dates Dr. Marietta Miller MD Primary Care Provider Active Start: September 03, 2024 Dr. Marietta Miller MD Referring Provider Active St art: September 03, 2024 Dr. Carolina Monterroso MD Attending Provider Active Start: September 03, 2024 Dr. Carolina Monterroso MD Other Provider Active S tart: September 03, 2024 Team Status: Inactive Member Role/Relationship Status Dates Dr. Marietta Miller MD Primary Care Provider Active Start: October 30, 2024 End: October 30, 2024 Out of Town Doctor Attending Provider Active Sta rt: October 30, 2024 End: October 30, 2024 Goals (unrecognized section and content) Goals may be documented in a n alternate sectionGoals may be documented in an alternate sectionGoals may be documented in an alternate sectionGoals may be documented in an alternate sectionGoals may be documented in an alternate sectionGoals may be documented in an alternate sectionGoals may be documented in an alternate section No data available for this section INFORMATION SOURCE (unrecogn ized section and content) DATE CREATED AUTHOR 05/22/2023 [facility] DATE CREATED AUTHOR AUTHOR'S ORGANIZ ATION 09/13/2024 [facility] DATE CREATED AUTHOR AUTHOR'S ORGANIZ ATION 02/22/2025 [facility] FOR RECORDS PERTAINING TO PATIENTS WHO ARE OR HAVE BEEN ENROLLED IN A CHEMICAL DEPENDENCY/SUBSTANCEABUSE PROGRAM, SOME INFORMATION MAY BE OMITTED. This clinical summary was aggregated from multiple sources. Caution should be exercised in using it in the provision of clinical care. This summary normalizes information from multiple sources, and as a consequence, information in this document may materially change the coding, format and clinical context of patient data. In addition, data may be omitted in some cases. CLINICAL DECISIONS SHOULD BE BASED ON THE PRIMARY CLINICAL RECORDS. [employer] [facility]. provides no warranty or guarantee of the accuracy or completeness of information in this document.
== END | disposition home or self-care (01) ==
PROVIDERS: PCP Family Medicine; Referring Provider Nurse Practitioner Women's Health; Visit Provider Nurse Practitioner Women's Health
DX: Z12.31 Encounter for screening mammogram for malignant neoplasm of breast (principal)
CPT/HCPCS: 77063; 77067